=== PATIENT | female | born 1995 | race Caucasian/White ===

== ENCOUNTER → 2021-07-12 15:35 | Outpatient (CLI) | payer BC, SELFPAY ==
[2021-07-12 17:03] LABS: hCG Titer Quant., Serum 1026 mIU/mL (1-3)
== END ==
PROVIDERS: Referring Provider Obstetrics & Gynecology; Visit Provider Obstetrics & Gynecology
DX: N91.2 Amenorrhea, unspecified (principal)
CPT/HCPCS: 36415; 84702

== ENCOUNTER → 2021-07-14 09:36 | Outpatient (CLI) | payer BC, SELFPAY ==
[2021-07-14 10:25] LABS: hCG Titer Quant., Serum 2080 mIU/mL (1-3)
== END ==
PROVIDERS: Referring Provider Obstetrics & Gynecology; Visit Provider Obstetrics & Gynecology
DX: N91.2 Amenorrhea, unspecified (principal)
CPT/HCPCS: 36415; 84702

== ENCOUNTER 2021-08-20 13:56 | Outpatient (CLI) | payer OTHER, SELFPAY ==
[2021-08-20 15:07] LABS: NATERA MAILED SPECIMEN
[2021-08-20 15:35] LABS: Absolute Lymphocyte Count 2.18 X10^3/uL (0.83-4.51); Absolute Neutrophil Count 5.1 X10^3/uL (2.0-7.7); Basophil# 0.02 X10^3/uL; Basophil% 0.3 % (0-1); Eosinophil# 0.07 X10^3/uL; Eosinophils% 0.9 % (0-5); Hematocrit 35.5 % (37-47); Hemoglobin 11.7 g/dL (12.0-15.0); Lymphocyte # 2.18 X10^3/ul (0.83-4.51); Mean Corpuscular Hgb 27.1 pg (27.0-32.0); Mean Corpuscular Volume 82.2 fL (81-99); Mean Platelet Vol. 11.8 fl (6.2-12.0); Monocyte# 0.42 X10^3/uL; Monocyte% 5.4 % (0-10); NRBC Flagged by Analyzer 0 % (0-5); Neutrophil # 5.06 X10^3/uL (2.7-7.7); Platelet Count 201 K/mm3 (150-450); RBC Distribution Width CV 12.5 % (11.6-14.6); RBC Distribution Width SD 37.5 fl (35.1-43.9); Red Blood Count 4.32 M/mm3 (4.2-5.4); White Blood Count 7.8 K/mm3 (4.4-11.0)
[2021-08-20 17:43] LABS: Amphetamine Urine VISTA NEGATIVE (<1000 ng/mL); Barbiturate Urine VISTA NEGATIVE (< 200 ng/mL); Benzodiazepine Urine VISTA NEGATIVE (< 200 ng/mL); Cocaine Urine VISTA NEGATIVE (< 300 ng/mL); Ecstacy Urine VISTA NEGATIVE (< 500 ng/mL); Methadone Urine VISTA NEGATIVE (< 300 ng/mL); PCP Urine VISTA NEGATIVE (< 25 ng/mL); THC Urine VISTA NEGATIVE (< 50 ng/mL); Vista UDS pH Range 5
[2021-08-23 09:29] LABS: HIV - WCH Non-Reactive (Nonreactive); Hepatitis B Surface Antigen Non-Reactive (Nonreactive); Hepatitis C Antibody Non-Reactive (Nonreactive); Rubella IgG Reactive (Nonreactive); Syphilis Antibodies Non-reactive
[2021-08-23 15:07] LABS: Chlamydia By Nucleic Acid AMP Negative (Negative)
[2021-08-23 16:08] LABS: Gonococcus By Nucleic Acid AMP Negative (Negative)
[2021-08-25 12:47] LABS: HPV Reflexed? NOT INDICATED
== END 2021-08-20 23:59 | disposition short-term general hospital (02) ==
PROVIDERS: Referring Provider Obstetrics & Gynecology; Visit Provider Obstetrics & Gynecology
DX: Z34.90 Encounter for supervision of normal pregnancy, unspecified, unspecified trimester (principal); Z12.4 Encounter for screening for malignant neoplasm of cervix
CPT/HCPCS: 36415; 80307; 85025; 86703; 86762; 86780; 86803; 86850; 86900; 86901; 87086; 87088; 87340; 87491; 87591; 88175; G0145

== ENCOUNTER 2021-09-09 12:05 | Outpatient (CLI) | payer OTHER, SELFPAY ==
[2021-09-09 12:12] VITALS: BP 127/72; PULSE 80; RESP 16; TEMP 35.8; O2SAT 100
[2021-09-09] MEDS: 0.9% NaCl Peripheral Flush Adult/Peds IV (12:14)
[2021-09-09] MEDS: Dextrose 5%-Lactated Ringers 1,000 ML 999 ML IV (12:27)
[2021-09-09] MEDS: Ondansetron 4 MG/2 ML Vial IV (12:27)
[2021-09-09 13:39] VITALS: BP 122/66; PULSE 75; RESP 16; TEMP 35.8; O2SAT 100
== END 2021-09-09 23:59 | disposition short-term general hospital (02) ==
LOC: MEDOUTP 12:07
PROVIDERS: Visit Provider Obstetrics & Gynecology
DX: E86.0 Dehydration (principal)
CPT/HCPCS: 96374; 96361; A4216; J2405

== ENCOUNTER → 2021-12-28 | Outpatient (CLI) | payer OTHER, SELFPAY ==
[2021-12-28 13:22] LABS: Absolute Lymphocyte Count 1.76 X10^3/uL (0.83-4.51); Absolute Neutrophil Count 5.1 X10^3/uL (2.0-7.7); Basophil# 0.02 X10^3/uL; Basophil% 0.3 % (0-1); Eosinophils% 1.4 % (0-5); Hematocrit 31.2 % (37-47); Hemoglobin 10.6 g/dL (12.0-15.0); Lymphocyte # 1.76 X10^3/ul (0.83-4.51); Lymphocyte % 23.9 % (19-41); Mean Corpuscular Hgb 29.2 pg (27.0-32.0); Monocyte# 0.31 X10^3/uL; Monocyte% 4.2 % (0-10); NRBC Flagged by Analyzer 0 % (0-5); Neutrophil % 69.1 % (47-70); Platelet Count 191 K/mm3 (150-450); RBC Distribution Width SD 37.8 fl (35.1-43.9); Red Blood Count 3.63 M/mm3 (4.2-5.4); White Blood Count 7.4 K/mm3 (4.4-11.0)
[2021-12-28 13:35] LABS: Glucose Challenge Gest 1H 50g 165 mg/dL (70-140)
== END | disposition home or self-care (01) ==
LOC: PAVLAB 13:05
PROVIDERS: Referring Provider Nurse Practitioner Women's Health; Visit Provider Nurse Practitioner Women's Health
DX: Z34.90 Encounter for supervision of normal pregnancy, unspecified, unspecified trimester (principal); Z3A.22 22 weeks gestation of pregnancy
CPT/HCPCS: 36415; 82950; 85025; 86850; 86900; 86901

== ENCOUNTER → 2022-01-05 | Outpatient (CLI) | payer OTHER, SELFPAY ==
[2022-01-05 08:46] LABS: Glucose GTT-Gestation. Fasting 100 mg/dL (<105)
[2022-01-05 09:46] LABS: Glucose GTT-Gestational 1 Hr 188 mg/dL (<190)
[2022-01-05 11:41] LABS: Glucose GTT-Gestational 2 Hr 121 mg/dL (<165)
[2022-01-05 11:45] LABS: Glucose GTT-Gestational 3 Hr 105 L (<145)
== END | disposition home or self-care (01) ==
PROVIDERS: Referring Provider Nurse Practitioner Women's Health; Visit Provider Nurse Practitioner Women's Health
DX: Z13.1 Encounter for screening for diabetes mellitus (principal)
CPT/HCPCS: 36415; 82951; 82952

== ENCOUNTER 2022-01-18 15:55 | Outpatient (CLI) | payer OTHER, SELFPAY ==
--- NOTE | 2022-01-18 16:05 | US_ITS ---
EXAM: US BIOPHYSICAL PROFILE WITHOUT NON-STRESS TESTING CLINICAL INDICATION: nonreassurring tracing TECHNIQUE: Real-time ultrasound of the maternal pelvis for biophysical profile evaluation with image documentation. This report was created using Add2paper report generation technology. COMPARISON: None. FINDINGS: BREATHING MOVEMENTS: Biophysical profile score is 4/8. No breathing or gross body movements identified during the exam. GROSS BODY MOVEMENTS: See above. TONE: Present. Score 2/2. QUALITATIVE AMNIOTIC FLUID VOLUME: MARCK is 11.5 cm. PRESENTATION: Single fetus identified in cephalic presentation with cardiac rate of 133 bpm. PLACENTA: Posterior placenta is noted with grade 1 maturity change. US/Biophysical Prof W/O Non Stres IMPRESSION: Abnormal biophysical profile score. Follow-up recommended. Electronically Signed: Epi Verdugo MD at 18:23 EDT ,
[2022-01-18 16:14] VITALS: PULSE 78; O2SAT 98
[2022-01-18 17:18] VITALS: BP 127/76; PULSE 67; TEMP 36.6; O2SAT 100
[2022-01-18 17:19] VITALS: BP 127/76; PULSE 67
[2022-01-18 17:21] VITALS: BMI 34.0
[2022-01-18 17:56] LABS: Bedside Glucose 79 mg/dL (74-106)
[2022-01-18] MEDS: Lactated Ringers 1,000 ML 999 ML IV (18:25)
[2022-01-18] MEDS: Betamethasone/Betamethasone 30 MG/5 ML Vial 12 MG IM (18:35)
[2022-01-18] MEDS: Ondansetron 4 MG/2 ML Vial IV (18:35)
[2022-01-18 18:48] LABS: Hematocrit 34.9 % (37-47); Hemoglobin 11.4 g/dL (12.0-15.0); Mean Corp Hgb Conc 32.7 g/dL (32-36); Mean Corpuscular Hgb 28.4 pg (27.0-32.0); Mean Platelet Vol. 11.3 fl (6.2-12.0); Platelet Count 181 K/mm3 (150-450); RBC Distribution Width SD 38.1 fl (35.1-43.9); Red Blood Count 4.01 M/mm3 (4.2-5.4); White Blood Count 9.4 K/mm3 (4.4-11.0)
[2022-01-18 19:23] VITALS: BP 143/69; PULSE 68; TEMP 36.6
[2022-01-18] MEDS: Lactated Ringers 1,000 ML 150 ML IV (19:26)
[2022-01-18 19:47] VITALS: BP 110/77; PULSE 68
[2022-01-18 20:14] LABS: Amphetamine Urine VISTA NEGATIVE (<1000 ng/mL); Barbiturate Urine VISTA NEGATIVE (< 200 ng/mL); Benzodiazepine Urine VISTA NEGATIVE (< 200 ng/mL); Cocaine Urine VISTA NEGATIVE (< 300 ng/mL); Ecstacy Urine VISTA NEGATIVE (< 500 ng/mL); Methadone Urine VISTA NEGATIVE (< 300 ng/mL); PCP Urine VISTA NEGATIVE (< 25 ng/mL); THC Urine VISTA NEGATIVE (< 50 ng/mL); Vista UDS pH Range 6
--- NOTE | 2022-01-18 20:28 | OB.TRI.HP_ITS ---
HPI - General HPI Narrative ABDULLAHI BEAL, is a 27 F who presents due to decreased movement and heart rate variable deceleration on the monitor in the office today. Patient has had a complicated by diet-controlled diabetes and had extended monitoring and a biophysical profile that was 6 out of 10 to offer breathing and to offer gross movements. Patient denies any vaginal bleeding or loss of fluid and admits good movement Maternal Data Information TAMELA Calculator Estimated Delivery Date Method Current WG Current Estimate 03/17/22 LMP (Certain) 31w 5d PFSH [facility] Medical History (Updated 01/18/22 @ 20:[address] Nay Mckinney MD) ASCUS with positive high risk HPV Chronic migraine COVID-19 vaccine series completed Deviated septum HPV test positive Lab test positive for detection of COVID-19 virus Marginal placenta Home Medications multivitamin no.47-iron fum 27 mg-folate no.1 1 mg-dha 300 mg capsule cap PO 07/28/21 [History Last Taken Unknown] blood sugar diagnostic #100 ea 01/05/22 [Rx Last Taken Unknown] blood-glucose meter #1 ea 01/05/22 [Rx Last Taken Unknown] lancets #100 ea 01/05/22 [Rx Last Taken Unknown] breast pump #1 ea 01/12/22 [Rx Last Taken Unknown] famotidine [Pepcid] 20 mg PO DAILY 01/18/22 [History Last Taken Unknown] ondansetron HCl 01/18/22 [History Last Taken Unknown] Allergy/AdvReac Type Severity Reaction Status Date / Time bupropion [From Wellbutrin] Allergy Severe Other Verified 01/18/22 17:23 Family History Father CVA (cerebral vascular accident) Mother Hypertension Ovarian cyst IBS (irritable bowel syndrome) Migraines Grandmother Cancer Lung Surgical History H/O adenoidectomy H/O foot surgery H/O wisdom tooth extraction Social History household members: spouse housing: house current occupational status: employed pets and animals: Yes Smoking Status: Never smoker second hand exposure: No alcohol intake: current alcohol intake frequency: a few times a week caffeine: Yes seatbelt use: always do you feel safe at home: Yes 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 history: - 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) History 1 Elective abortions Hx Para Spontaneous abortions Hx # Term Pregnancies Ectopic pregnancies Hx # Pregnancies Multiple births # of living children Visit Details Expected Delivery Route/Plan Labor Preferences- CB/BF classes: scheduled labor support person: Juan Antonio labor intervention preferences: pain management options preferred: nitrous cut cord/dad catch: yes : yes PP control planned: discussed discussed possible routes of delivery and associated risks: [] special requests: [] Plans Covid status: pos and vaccinated moderna Flu vaccine: discussed Tdap vaccine: [] Rhogam: [] LARC form signed: yes Problem list reviewed and updated with the most current plan of care details and appropriate orders placed. Relevant counseling for the gestational age provided. Continue routine care and follow up unless otherwise noted in visit notes/problem list details OB Flowsheet Initial Weight: 173 lb Date -?-?-?-?-?-?-?-?-?-?-?-?- EGA Weight BP Urine Prot -?-?-?-?-?-?-?-?-?-?-?-?- Glucose FHR FuHt Pres Dilation -?-?-?-?-?-?-?-?-?-?-?-?- Effaced St Visit Note 08/20/21 -?-?-?-?-?-?-?-?-?-?-?-?- 10w 1d 173 lb 8 oz (+8 oz) 130/90 128/84 -?-?-?-?-?-?-?-?-?-?-?-?- 150 -?-?-?-?-?-?-?-?-?-?-?-?- SM- CRL 3.9cm co ns with LMP 09/09/21 -?-?-?-?-?-?-?-?-?-?-?-?- 13w 0d 171 lb (-2 lb) 122/90 Negative -?-?-?-?-?-?-?-?-?-?-?-?- Negative 155 -?-?-?-?-?-?-?-?-?-?-?-?- JV- nausea and v omiting has become severe again. she felt better after getting IV fluids in ER last week. sending to infusion suite now and ordering reglan pump through [facility]. 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 encouraged her to speak with the genetic counselor 09/17/21 -?-?-?-?-?-?-?-?-?-?-?-?- 14w 1d 174 lb 6 oz (+1 lb 6 oz) 124/84 Negative -?-?-?-?-?-?-?-?-?-?-?-?- Negative 141 -?-?-?-?-?-?-?-?-?-?-?-?- JV- nausea impro nona and she is feeling much better with the zofran pump. no complaints. 10/15/21 -?-?-?-?-?-?-?-?-?-?-?-?- 18w 1d 180 lb (+7 lb) 122/88 Negative -?-?-?-?-?-?-?-?-?-?-?-?- Negative 145 -?-?-?-?-?-?-?-?-?-?-?-?- JV- no lof, vagi nal bleeding, or cramping. JV- no lof, vaginal bleeding , or cramping. pt wants to stop the reglan pump. will need to send message to opt nurses. 11/12/21 -?-?-?-?-?-?-?-?-?-?-?-?- 22w 1d 181 lb (+8 lb) 102/80 -?-?-?-?-?-?-?-?-?-?-?-?- 150 -?-?-?-?-?-?-?-?-?-?-?-?- SM- no vb lof go od fm no regular ctx 12/08/21 -?-?-?-?-?-?-?-?-?-?-?-?- 25w 6d 187 lb 4 oz (+14 lb 4 oz) 124/80 Trace -?-?-?-?-?-?-?-?-?-?-?-?- Negative 146 -?-?-?-?-?-?-?-?-?-?-?-?- MH-No VB, LOF. G ood Fm. Denies concerns 12/28/21 -?-?-?-?-?-?-?-?-?-?-?-?- 28w 5d 195 lb (+22 lb) 118/62 Negative -?-?-?-?-?-?-?-?-?-?-?-?- Negative 145 29 -?-?-?-?-?-?-?-?-?-?-?-?- SM- no vb lof go od fm no regualr ctx 01/12/22 -?-?-?-?-?-?-?-?-?-?-?-?- 30w 6d 194 lb (+21 lb) 111/77 Negative -?-?--?-?-?-?-?-?-?-?-?-?- Negative 150 32 Breech -?-?-?-?-?-?-?-?-?-?-?-?- JV-no lof, vagin al bleeding, or dec fm. seeing dr. zabala soon and talking with college sports coach. so far glucose levels are normal. breast pump rx given. need most recent ultrasound from [facility] 01/18/22 -?-?-?-?-?-?-?-?-?-?-?-?- 31w 5d 193 lb 2 oz (+20 lb 2 oz) 112/80 Negative -?-?-?-?-?-?-?-?-?-?-?-?- Negative -?-?-?-?-?-?-?-?-?-?-?-?- SM- co dec fm, n ow feeling some but patient had a decel on the monitor so sent for extended monitoring and BPP 01/18/22 -?-?-?-?-?-?-?-?-?-?-?-?- 31w 5d 192 lb 0.362 oz (+19 lb 0.362 oz) 127/76 127/76 143/69 110/77 -?-?-?-?-?-?-?-?-?-?-?-?- -?-?-?-?-?-?-?-?-?-?-?-?- ROS Constitutional Constitutional: Reports systems reviewed and no addt'l complaints, except as documented and as per HPI ENT HEENT: Reports systems reviewed and no addt'l complaints, except as documented Cardiovascular Cardiovascular: Reports systems reviewed and no addt'l complaints, except as documented Respiratory/Chest Respiratory/Chest: Reports systems reviewed and no addt'l complaints, except as documented Gastrointestinal Gastrointestinal: Reports as per HPI Genitourinary Genitourinary: Reports as per HPI Musculoskeletal Musculoskeletal: Reports systems reviewed and no addt'l complaints, except as documented Integumentary Integumentary: Reports systems reviewed and no addt'l complaints, except as documented Neurologic Neurologic: Reports systems reviewed and no addt'l complaints, except as documented Physical Exam Const alert, oriented x3 and no apparent distress HEENT Head and Scalp: normocephalic and atraumatic Neck full ROM and no lymphadenopathy Chest inspection of chest normal Resp normal respiratory effort GI GI Narrative: gravid, abdomen nontender, AGA Manual OB Exam: dilated, effaced and station NST FHR Rate Baby A Baseline: 140 Variability:: Moderate Accelerations:: 15 x 15 Decelerations:: None NST Reactive:: Yes FHR Category:: Category I Uterine Activity:: Irregular Assessment & Plan (1) Variable heart rate decelerations, antepartum: COMMENT: to l and d for bpp and extended monitoring (2) Gestational diabetes: COMMENT: Carb controlled diet with sliding scale insulin while in hospital status post Celestone (3) Anemia affecting in third trimester: COMMENT: PNV + Iron, add OTC iron daily (4) Prematurity of fetus: COMMENT: Celestone given 01/18 and plan to be given on 01/19 (5) Depression: COMMENT: not currently on medication, encouraged counseling (6) PTSD (post-traumatic stress disorder): COMMENT: family trauma (7) Supervision of normal : COMMENT: PRR girl Aida TAMELA: 03/17/22 Spouse: Juan Antonio (8) : QUALIFIERS: Weeks of gestation: 30 weeks Qualified Code(s): Z3A.30 - 30 weeks gestation of COMMENT: anatomy nl, declined carrier ordered afp. NIPT low risk, 1 hr gct 165, 3 Hr gtt ordered (9) Lab test positive for detection of COVID-19 virus: COMMENT: 81mg asa and 32 & 36 wk US (10) Rh negative status during : COMMENT: Rhogam at 28 weeks, delivery and prn (11) Abnormal ultrasound: COMMENT: 01/14 BPP equivocal, plan STO and give BMZ, repeat BPP in am. PLAN: see PL details Charges/Coding Multi Select Codes Visit Charges Office Visit/Consults: 76959 OV L3 Est Urinary/Genital Urinary/Genital CPT Codes: 32316-58 non-stress test Interp
[2022-01-18 22:51] LABS: Bedside Glucose 168 mg/dL (74-106)
[2022-01-18] MEDS: Insulin Lispro 100 UNIT/ML INSULN.PEN SC (22:57)
[2022-01-18 23:01] VITALS: BP 112/68; PULSE 80; PULSE 85; TEMP 36.2; O2SAT 96
[2022-01-19] MEDS: Lactated Ringers 1,000 ML 150 ML IV ×2 (01:18→07:25)
[2022-01-19 01:19] VITALS: BP 116/57; PULSE 80; TEMP 36.4; O2SAT 97
[2022-01-19] MEDS: Ondansetron 4 MG/2 ML Vial IV (04:35)
[2022-01-19 05:51] VITALS: PULSE 67; O2SAT 98
[2022-01-19 05:54] VITALS: BP 116/72; PULSE 64; TEMP 36.4
[2022-01-19 06:01] LABS: Bedside Glucose 112 mg/dL (74-106)
--- NOTE | 2022-01-19 07:16 | OB.TRI.HP_ITS ---
HPI - General HPI Narrative ABDULLAHI BEAL, is a 27 F who presents with heart rate variable and dec movement, now overnight no signifciant decels cat I tracing good movement no vb or lof no regular ctx just irritability Maternal Data Information TAMELA Calculator Estimated Delivery Date Method Current WG Current Estimate 03/17/22 LMP (Certain) 31w 6d PFSH PFSH Medical History (Updated 01/19/22 @ 07:[address] Nay Mckinney MD) ASCUS with positive high risk HPV Chronic migraine COVID-19 vaccine series completed Deviated septum HPV test positive Lab test positive for detection of COVID-19 virus Marginal placenta Home Medications multivitamin no.47-iron fum 27 mg-folate no.1 1 mg-dha 300 mg capsule (PNV-DHA) cap PO 07/28/21 [History Last Taken Unknown] blood sugar diagnostic ([employer] Test) #100 ea 01/05/22 [Rx Last Taken Unknown] blood-glucose meter ([employer] Blood Glucose System) #1 ea 01/05/22 [Rx Last Taken Unknown] lancets #100 ea 01/05/22 [Rx Last Taken Unknown] breast pump #1 ea 01/12/22 [Rx Last Taken Unknown] famotidine 20 mg tablet (Pepcid) 20 mg PO DAILY [place] 01/18/22 [History Last Taken Unknown] ondansetron HCl 4 mg tablet nausea 01/18/22 [History Last Taken Unknown] Allergy/AdvReac Type Severity Reaction Status Date / Time bupropion [From Wellbutrin] Allergy Severe Other Verified 01/18/22 17:23 Family History Father CVA (cerebral vascular accident) Mother Hypertension Ovarian cyst IBS (irritable bowel syndrome) Migraines Grandmother Cancer Lung Surgical History H/O adenoidectomy H/O foot surgery H/O wisdom tooth extraction Social History household members: spouse housing: house current occupational status: employed pets and animals: Yes Smoking Status: Never smoker second hand exposure: No alcohol intake: current alcohol intake frequency: a few times a week caffeine: Yes seatbelt use: always do you feel safe at home: Yes 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) History 1 Elective abortions Hx Para Spontaneous abortions Hx # Term Pregnancies Ectopic pregnancies Hx # Pregnancies Multiple births # of living children Visit Details Expected Delivery Route/Plan Labor Preferences- CB/BF classes: scheduled labor support person: Juan Antonio labor intervention preferences: pain management options preferred: nitrous cut cord/dad catch: yes : yes PP control planned: discussed discussed possible routes of delivery and associated risks: [] special requests: [] Plans Covid status: pos and vaccinated moderna Flu vaccine: discussed Tdap vaccine: [] Rhogam: [] LARC form signed: yes Problem list reviewed and updated with the most current plan of care details and appropriate orders placed. Relevant counseling for the gestational age provided. Continue routine care and follow up unless otherwise noted in visit notes/problem list details OB Flowsheet Initial Weight: 173 lb Date -?-?-?-?-?-?-?-?--?-?-?-?- EGA Weight BP Urine Prot -?-?-?-?-?-?-?-?-?-?-?-?- Glucose FHR FuHt Pres Dilation -?-?-?-?-?-?-?-?-?-?-?-?- Effaced St Visit Note 08/20/21 -?-?-?-?-?-?-?-?-?-?-?-?- 10w 1d 173 lb 8 oz (+8 oz) 130/90 128/84 -?-?-?-?-?-?-?-?-?-?-?-?- 150 -?-?-?-?-?-?-?-?-?-?-?-?- SM- CRL 3.9cm co ns with LMP 09/09/21 -?-?-?-?-?-?-?-?-?-?-?-?- 13w 0d 171 lb (-2 lb) 122/90 Negative -?-?-?-?-?-?-?-?-?-?-?-?- Negative 155 -?-?-?-?-?-?-?-?-?-?-?-?- JV- nausea and v omiting has become severe again. she felt better after getting IV fluids in ER last week. sending to infusion suite now and ordering reglan pump through [facility]. 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 encouraged her to speak with the genetic counselor 09/17/21 -?-?-?-?-?-?-?-?-?-?-?-?- 14w 1d 174 lb 6 oz (+1 lb 6 oz) 124/84 Negative -?-?-?-?-?-?-?-?-?-?-?-?- Negative 141 -?-?-?-?-?-?-?-?-?-?-?-?- JV- nausea impro nona and she is feeling much better with the zofran pump. no complaints. 10/15/21 -?-?-?-?-?-?-?-?-?-?-?-?- 18w 1d 180 lb (+7 lb) 122/88 Negative -?-?-?-?-?-?-?-?-?-?-?-?- Negative 145 -?-?-?-?-?-?-?-?-?-?-?-?- JV- no lof, vagi nal bleeding, or cramping. JV- no lof, vaginal bleeding , or cramping. pt wants to stop the reglan pump. will need to send message to [facility] nurses. 11/12/21 -?-?-?-?-?-?-?-?-?-?-?-?- 22w 1d 181 lb (+8 lb) 102/80 -?-?-?-?-?-?-?-?-?-?-?-?- 150 -?-?-?-?-?-?-?-?-?-?-?-?- SM- no vb lof go od fm no regular ctx 12/08/21 -?-?-?-?-?-?-?-?-?-?-?-?- 25w 6d 187 lb 4 oz (+14 lb 4 oz) 124/80 Trace -?-?-?-?-?-?-?-?-?-?-?-?- Negative 146 -?-?-?-?-?-?-?-?-?-?-?-?- MH-No VB, LOF. G ood Fm. Denies concerns 12/28/21 -?-?-?-?-?-?-?-?-?-?-?-?- 28w 5d 195 lb (+22 lb) 118/62 Negative -?-?-?-?-?-?-?-?-?-?-?-?- Negative 145 29 -?-?-?-?-?-?-?-?-?-?-?-?- SM- no vb lof go od fm no regualr ctx 01/12/22 -?-?-?-?-?-?-?-?-?-?-?-?- 30w 6d 194 lb (+21 lb) 111/77 Negative -?-?-?-?-?-?-?-?-?-?-?-?- Negative 150 32 Breech -?-?-?-?-?-?-?-?-?-?-?-?- JV-no lof, vagin al bleeding, or dec fm. seeing dr. 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 so far glucose levels are normal. breast pump rx given. need most recent ultrasound from [facility] 01/18/22 -?-?-?-?-?-?-?-?-?-?-?-?- 31w 5d 193 lb 2 oz (+20 lb 2 oz) 112/80 Negative -?-?-?-?-?-?-?-?-?-?-?-?- Negative -?-?-?-?-?-?-?-?-?-?-?-?- SM- co dec fm, n ow feeling some but patient had a decel on the monitor so sent for extended monitoring and BPP 01/18/22 -?-?-?-?-?-?-?-?-?-?-?-?- 31w 5d 192 lb 0.362 oz (+19 lb 0.362 oz) 127/76 127/76 143/69 110/77 112/68 116/57 116/72 -?-?-?-?-?-?-?-?-?-?-?-?- -?-?-?-?-?-?-?-?-?-?-?-?- ROS Constitutional Constitutional: Reports systems reviewed and no addt'l complaints, except as documented and as per HPI ENT HEENT: Reports systems reviewed and no addt'l complaints, except as documented Cardiovascular Cardiovascular: Reports systems reviewed and no addt'l complaints, except as documented Respiratory/Chest Respiratory/Chest: Reports systems reviewed and no addt'l complaints, except as documented Gastrointestinal Gastrointestinal: Reports as per HPI Genitourinary Genitourinary: Reports as per HPI Musculoskeletal Musculoskeletal: Reports systems reviewed and no addt'l complaints, except as documented Integumentary Integumentary: Reports systems reviewed and no addt'l complaints, except as documented Neurologic Neurologic: Reports systems reviewed and no addt'l complaints, except as documented Physical Exam Const alert, oriented x3 and no apparent distress Neck full ROM and no lymphadenopathy Chest inspection of chest normal Resp normal respiratory effort GI GI Narrative: gravid, abdomen nontender, AGA Manual OB Exam: dilated, effaced and station Assessment & Plan (1) Variable heart rate decelerations, antepartum: COMMENT: to l and d for bpp and extended monitoring (2) Gestational diabetes: COMMENT: Carb controlled diet with sliding scale insulin while in hospital status post Celestone (3) Anemia affecting in third trimester: COMMENT: PNV + Iron, add OTC iron daily (4) Prematurity of fetus: COMMENT: Celestone given 01/18 and plan to be given on 01/19 (5) Depression: COMMENT: not currently on medication, encouraged counseling (6) PTSD (post-traumatic stress disorder): COMMENT: family trauma (7) Supervision of normal : COMMENT: PRR girl Aida TAMELA: 03/17/22 Spouse: Juan Antonio (8) : QUALIFIERS: Weeks of gestation: 30 weeks Qualified Code(s): Z3A.30 - 30 weeks gestation of COMMENT: anatomy nl, declined carrier ordered afp. NIPT low risk, 1 hr gct 165, 3 Hr gtt ordered (9) Lab test positive for detection of COVID-19 virus: COMMENT: 81mg asa and 32 & 36 wk US (10) Rh negative status during : COMMENT: Rhogam at 28 weeks, delivery and prn (11) Abnormal ultrasound: COMMENT: 01/14 BPP equivocal, plan STO and give BMZ, repeat BPP today PLAN: Plan see PL details
[2022-01-19 07:28] VITALS: BP 123/89; PULSE 75; O2SAT 99
[2022-01-19 07:29] VITALS: TEMP 36.7
--- NOTE | 2022-01-19 08:00 | US_ITS ---
STUDY: OBSTETRICAL ULTRASOUND - BIOPHYSICAL PROFILE REASON FOR EXAM: Female, 27 years old repeat BPP LMP: 06/10/2021. PRIOR ULTRASOUND: Comparison is made with prior study dated 01/18/2022. TECHNIQUE: Transabdominal TECHNICAL QUALITY: Adequate. FINDINGS: There is a single intrauterine fetus. The fetus is in a breech presentation. There is demonstrated cardiac activity with a heart rate of 135 bpm. There is a normal amniotic fluid volume. The largest amniotic fluid pocket measures 5.3 cm. The amniotic fluid index (MARCK) is 12.8 cm. The placenta is posterior in location and is not low lying. There are Grade 1 placental changes. Age by LMP: 31 weeks, 6 days. TAMELA by LMP: 03/17/2022. BIOPHYSICAL PROFILE: Breathing Movements (FBM): 2 Gross Body Movements (GBM): 2 Tone (FT): 2 Amniotic Fluid Volume (AFV): 2 TOTAL SCORE: 8 / 8 US/Biophysical Prof W/O Non Stres IMPRESSION: Normal biophysical profile of 03/14. Electronically Signed: Marquis Warren MD at 9:47 EDT ,
[2022-01-19] MEDS: Acetaminophen 500 MG Tablet 1000 MG PO (10:43)
--- NOTE | 2022-01-19 12:45 | PCM.PN.OB ---
Subjective Subjective pt is comfortable in bed, no complaints. + fm, no lof ,or vaginal bleeding. Her repeat BPP today was 8/8 and NST's/continuous monitoring looks reassuring. Objective Data Objective Data Vital Signs: Vital Signs Temp Pulse BP Pulse Ox 98.1 F 75 123/89 H 99 01/19/22 07:29 01/19/22 07:28 01/19/22 07:28 01/19/22 07:28 Weight: 192 lb 0.362 oz Body Mass Index (BMI) 34.0 Intake & Output: Intake and Output for Last 24 Hours 01/17/22 01/18/22 01/19/22 23:59 23:59 23:59 Intake Total 1000 / 1000 2295.0 / 2295.0 Balance 1000 / 1000 2295.0 / 2295.0 Lab / Micro Data Result Diagrams: 01/18/22 18:25 Labs: Laboratory Results - last 24 hr 01/18/22 17:52: POC Glucose 79 01/18/22 18:25: WBC 9.4, RBC 4.01 L, Hgb 11.4 L, Hct 34.9 L, MCV 87.0, MCH 28.4, MCHC 32.7, RDW Std Deviation 38.1, RDW Coeff of Awa 12.0, Plt Count 181, MPV 11.3 01/18/22 18:25: Blood Type A NEGATIVE, Antibody Screen TNP 01/18/22 18:25: Antibody Screen NEGATIVE 01/18/22 19:30: Urine Opiates Screen NEGATIVE, Urine Methadone Screen NEGATIVE, Ur Barbiturates Screen NEGATIVE, Ur Phencyclidine Scrn NEGATIVE, Ur Amphetamines Screen NEGATIVE, MDMA (Ecstasy) Screen NEGATIVE, U Benzodiazepines Scrn NEGATIVE, Urine Cocaine Screen NEGATIVE, U Cannabinoids Screen NEGATIVE, Ur Drug Screen Comment 01/18/22 22:45: POC Glucose 168 H 01/19/22 05:52: POC Glucose 112 H Radiography Diagnostic Testing: Radiology Impression Biophysical Profile Ultrasound 01/18/22 16:05 IMPRESSION: Abnormal biophysical profile score. Follow-up recommended. Electronically Signed: Epi Verdugo MD at 18:23 EDT , Biophysical Profile Ultrasound 01/19/22 08:00 IMPRESSION: Normal biophysical profile of 03/14. Electronically Signed: Marquis Warren MD at 9:47 EDT , ROS Constitutional Constitutional: Denies change in weight, chills, fatigue, fever(s), headache(s), poor appetite or weakness Cardiovascular Cardiovascular: Denies chest pain, dizziness, leg edema, palpitations or rapid heart rate Respiratory/Chest Respiratory/Chest: Denies chest tightness, cough, dyspnea or breast pain Gastrointestinal Gastrointestinal: Denies abdominal pain, constipation, cramping, diarrhea or vomiting Genitourinary Genitourinary: Denies dysuria Musculoskeletal Musculoskeletal: Denies back pain Physical Exam HEENT normocephalic Resp normal respiratory effort and normal air movement no CVA tenderness Extremity normal to inspection General Extremity: edema bilateral (trace ) NST FHR Rate Baby A Baseline: 130 Variability:: Moderate Accelerations:: 15 x 15 Decelerations:: None NST Reactive:: Yes FHR Category:: Category I Assessment & Plan (1) Abnormal ultrasound: COMMENT: 01/14 BPP equivocal, plan STO and give BMZ, repeat BPP today PLAN: patient meets discharge criteria. plan to give lunch and 2nd dose of celestone a few hours early so that she may be discharged to home by 1 pm. (2) Prematurity of fetus: COMMENT: Celestone given 01/18 and plan to be given on 01/19 (3) Variable heart rate decelerations, antepartum: COMMENT: to l and d for bpp and extended monitoring (4) Gestational diabetes: COMMENT: Carb controlled diet with sliding scale insulin while in hospital status post Celestone (5) Anemia affecting in third trimester: COMMENT: PNV + Iron, add OTC iron daily (6) Rh negative status during : COMMENT: Rhogam at 28 weeks, delivery and prn (7) Lab test positive for detection of COVID-19 virus: COMMENT: 81mg asa and 32 & 36 wk US (8) : QUALIFIERS: Weeks of gestation: 30 weeks Qualified Code(s): Z3A.30 - 30 weeks gestation of COMMENT: anatomy nl, declined carrier ordered afp. NIPT low risk, 1 hr gct 165, 3 Hr gtt ordered (9) Supervision of normal : COMMENT: PRR girl Aida TAMELA: 03/17/22 Spouse: Juan Antonio (10) PTSD (post-traumatic stress disorder): COMMENT: family trauma (11) Depression: COMMENT: not currently on medication, encouraged counseling (12) Chronic migraine: Charges/Coding Multi Select Codes Visit Charges Observation E&M Codin Subsequent observation care L3
[2022-01-19] MEDS: Betamethasone/Betamethasone 30 MG/5 ML Vial 12 MG IM (13:23)
[2022-01-19 13:51] VITALS: BP 126/78; PULSE 82; TEMP 37.2
== END 2022-01-19 13:55 | disposition home or self-care (01) ==
LOC: WPOUT 16:02 → WP 16:03
PROVIDERS: Referring Provider Obstetrics & Gynecology; Visit Provider Obstetrics & Gynecology
DX: O76 Abnormality in fetal heart rate and rhythm complicating labor and delivery (principal); Z3A.31 31 weeks gestation of pregnancy; O99.343 Other mental disorders complicating pregnancy, third trimester; F43.10 Post-traumatic stress disorder, unspecified; F32.A Depression, unspecified; O24.410 Gestational diabetes mellitus in pregnancy, diet controlled; Z87.42 Personal history of other diseases of the female genital tract; Z79.899 Other long term (current) drug therapy
CPT/HCPCS: 96374; 96376; 96361 ×2; 59025; 59050; 76819; 80307; 82962; 85027; 86850; 86900; 86901; 96372; 99218; J7120; G0378; J0702; J2405

== ENCOUNTER 2022-01-26 11:00 | Outpatient (RCR) | payer OTHER, SELFPAY | END 2022-02-03 23:59 | LOC: DC 11:00 | PROVIDERS: Referring Provider Nurse Practitioner Women's Health; Visit Provider Nurse Practitioner Women's Health | DX: O24.419 Gestational diabetes mellitus in pregnancy, unspecified control (principal); Z3A.00 Weeks of gestation of pregnancy not specified | CPT/HCPCS: 97802; 97803 ==

== ENCOUNTER → 2022-01-27 | Outpatient (CLI) | payer OTHER, SELFPAY ==
--- NOTE | 2022-01-27 08:50 | US_ITS ---
STUDY: SECOND AND THIRD TRIMESTER OBSTETRICAL ULTRASOUND - LIMITED REASON FOR EXAM: Female, 27 years old. growth -- 32 weeks PRIOR ULTRASOUND: Jan 19 2022 8:45am . TECHNIQUE: Transabdominal TECHNICAL QUALITY: Adequate. FINDINGS: There is a single intrauterine fetus. The fetus is in a cephalic presentation. There is demonstrated cardiac activity with a heart rate of 150 bpm. There is a normal amniotic fluid volume. The largest amniotic fluid pocket measures 4.7 cm. The amniotic fluid index (MARCK) is 12.2 cm. The placenta is posterior in location and is not low lying. There are Grade 1 placental changes. The cervix measures cm in length: 3.4. BIOMETRY: BPD: 83 mm: 33 weeks, 4 days HC: 300 mm: 33 weeks, 1 days AC: 290 mm: 33 weeks, 0 days FL: 64 mm: 32 weeks, 6 days CI: 80 FL/AC: 22 FL/BPD: 76 HC/AC: 1.03 age by current US: 33 weeks, 0 days. TAMELA by current US: 8.11.22. Estimated weight: 2139 grams, +/- 321 grams, 47 %. Age by LMP: 33 weeks, 0 days. TAMELA by LMP: 8.11.22. US/OB Limited With Biometrics IMPRESSION: There is a single live intrauterine with a heart rate of 150 bpm. age by current US: 33 weeks, 0 days. TAMELA by current US: 8.11.22. Estimated weight: 2139 grams, +/- 321 grams, 47 %. Electronically Signed: Klever Ervin MD at 16:07 EDT ,
== END | disposition home or self-care (01) ==
PROVIDERS: Visit Provider Obstetrics & Gynecology
DX: O98.513 Other viral diseases complicating pregnancy, third trimester (principal); U07.1 COVID-19; Z3A.32 32 weeks gestation of pregnancy
CPT/HCPCS: 76816

== ENCOUNTER → 2022-02-24 | Outpatient (CLI) | payer OTHER, SELFPAY | END | disposition home or self-care (01) | LOC: LABSPEC 09:40 | PROVIDERS: Visit Provider Obstetrics & Gynecology | DX: Z34.83 Encounter for supervision of other normal pregnancy, third trimester (principal); Z3A.36 36 weeks gestation of pregnancy | CPT/HCPCS: 87081 ==

== ENCOUNTER → 2022-02-24 | Outpatient (CLI) | payer OTHER, SELFPAY ==
--- NOTE | 2022-02-24 08:53 | US_ITS ---
STUDY: SECOND AND THIRD TRIMESTER OBSTETRICAL ULTRASOUND - LIMITED REASON FOR EXAM: Female, 27 years old growth -- 36 weeks LMP: 06/10/2021. PRIOR ULTRASOUND: Comparison is made with prior study dated 01/27/2022. TECHNIQUE: Transabdominal TECHNICAL QUALITY: Adequate. FINDINGS: There is a single intrauterine fetus. The fetus is in a cephalic presentation. There is demonstrated cardiac activity with a heart rate of 130 bpm. There is a normal amniotic fluid volume. The largest amniotic fluid pocket measures 3.7 cm. The amniotic fluid index (MARCK) is 11.1 cm. The placenta is posterior in location and is not low lying. There are Grade 2 placental changes. BIOMETRY: BPD: 9.1 cm: 36 weeks, 4 days HC: 32.5 cm: 36 weeks, 5 days AC: 32.6 cm: 37 weeks, 3 days FL: 6.9 cm: 35 weeks, 3 days Age by LMP: 37 weeks, 0 days. TAMELA by LMP: 03/17/2022. age by prior US: 37 weeks, 0 days. TAMELA by prior US: 03/17/2022. age by current US: 36 weeks, 0 days. TAMELA by current US: 03/24/2022. Estimated weight: 2922 grams, +/- 4:30 grams, 40 percentile. US/OB Limited With Biometrics IMPRESSION: Single live intrauterine gestation with a mean gestational age of 37 weeks. The measurements obtained today following within the normal expected range. Electronically Signed: Marquis Warren MD at 12:19 EDT ,
== END | disposition home or self-care (01) ==
LOC: OPUS 08:52
PROVIDERS: Visit Provider Obstetrics & Gynecology
DX: O98.513 Other viral diseases complicating pregnancy, third trimester (principal); U07.1 COVID-19; Z3A.37 37 weeks gestation of pregnancy
CPT/HCPCS: 76816

== ENCOUNTER 2022-03-05 21:54 | Inpatient (IN) | payer OTHER, SELFPAY ==
[2022-03-05] VITALS (11 sets, daily range): BP systolic 124–143; BP diastolic 82–97; PULSE 70–100; TEMP 37.1–37.4; O2SAT 98; BMI 35.8
[2022-03-05 20:47] LABS: Hematocrit 30.8 % (37-47); Mean Corp Hgb Conc 32.5 g/dL (32-36); Mean Corpuscular Hgb 27.5 pg (27.0-32.0); Mean Corpuscular Volume 84.6 fL (81-99); Mean Platelet Vol. 12.2 fl (6.2-12.0); Platelet Count 172 K/mm3 (150-450); RBC Distribution Width CV 12.9 % (11.6-14.6); RBC Distribution Width SD 39.5 fl (35.1-43.9); Red Blood Count 3.64 M/mm3 (4.2-5.4); White Blood Count 8.2 K/mm3 (4.4-11.0)
[2022-03-05 21:06] LABS: Mucous, Urine 0 SEEN /hpf (<or=2+); Red Blood Cells-Urine 0 SEEN /hpf (0-5)
[2022-03-05 21:07] LABS: ALB/GLOB Ratio 0.6 RATIO (0.9-2.4); AST(SGOT) 11 U/L (15-37); Alanine Aminotransfer ALT/SGPT 9 U/L (13-56); Albumin, Serum 2.3 g/dL (3.2-5.0); Alkaline Phosphatase 127 U/L (45-117); Anion Gap 8 (5-15); BUN 6 mg/dL (7-18); BUN/Creat Ratio 10.1 RATIO (10-20); Calcium,Total 8.1 mg/dL (8.5-10.1); Chloride 108 mmol/L (98-107); EST Glomerular Filtration Rate 130 mL/min (>60); Est Glom Filt Rate - Afr Amer 157 mL/min (>60); Estimated Creatinine Clearance 118.57 ml/min; Globulin 3.6 g/dL (2.2-4.2); Glucose 115 mg/dL (74-106); Potassium 3.3 mmol/L (3.5-5.1); Protein, Total 5.9 g/dL (6.4-8.2); Sodium Level 138 mmol/L (136-145)
[2022-03-05 21:08] LABS: Color, Urine Yellow (Yellow); Glucose, Dipstick Normal (Normal); Ketone-Dipstick Negative (Negative); Leukocyte Esterase-Dipstick 25 /ul (Negative); Nitrite-Dipstick Negative (Negative); Occult Blood-Urine Negative /ul (Negative); Protein-Dipstick Negative (Negative); Specific Gravity, Urine 1.015 (1.002-1.030); Urine Bilirubin Dipstick Negative (Negative); Urine Clarity Sl. Cloudy (Clear); Urine Urobilinogen Normal (Normal)
[2022-03-05 21:18] LABS: Protein:Creat Ratio 159 mg/g CRE (0-200)
[2022-03-05 21:37] LABS: Bacteria 1+ /hpf (None Seen); Squamous Epithelial Cells - UA 5-10 SEEN /hpf (5-10); White Blood Cells 0-5 SEEN /hpf (0-5)
[2022-03-05 22:08] LABS: Absolute Lymphocyte Count 2.44 X10^3/uL (0.83-4.51); Absolute Neutrophil Count 5.4 X10^3/uL (2.0-7.7); Basophil# 0.02 X10^3/uL; Basophil% 0.2 % (0-1); Eosinophil# 0.06 X10^3/uL; Eosinophils% 0.7 % (0-5); Lymphocyte # 2.44 X10^3/ul (0.83-4.51); Lymphocyte % 28.7 % (19-41); Monocyte# 0.49 X10^3/uL; Monocyte% 5.8 % (0-10); NRBC Flagged by Analyzer 0 % (0-5); Neutrophil # 5.41 X10^3/uL (2.7-7.7); Neutrophil % 63.8 % (47-70)
[2022-03-05 22:11] LABS: POSITIVE COUNT NO; POSITIVE DIFFERENTIAL NO; POSITIVE MORPHOLOGY NO
--- NOTE | 2022-03-05 22:15 | HP.PCM.OB_ITS ---
HPI - General General Date of Admission: 03/05/22 HPI Narrative ABDULLAHI BEAL, is a 27y/o @ 38 weeks 2 days who presents to L&D with decreased movement. throughout her triage visit the tracing was a reactive category 1 tracing, however her blood pressures were found to be persistently elevated 130's-140's/high 90's. She denies headaches, visual changes, epigastric pain, edema, vaginal bleeding, and contractions. PIH labs were found to be normal. The diagnosis of PIH was given based on comparisons of blood pressures in the office. She has had diet controlled gestational diabetes during this . Maternal Data Information TAMELA Calculator Estimated Delivery Date Method Current WG Current Estimate 03/17/22 LMP (Certain) 38w 2d PFSH PFS Medical History ASCUS with positive high risk HPV Chronic migraine COVID-19 vaccine series completed Deviated septum HPV test positive Lab test positive for detection of COVID-19 virus Marginal placenta Home Medications multivitamin no.47-iron fum 27 mg-folate no.1 1 mg-dha 300 mg capsule (PNV-DHA) 1 cap PO DAILY 07/28/21 [History Last Taken Unknown] blood sugar diagnostic (Truetrack Test strips) #100 ea 01/05/22 [Rx Last Taken Unknown] blood-glucose meter (Truetrack Blood Glucose System kit) #1 ea 01/05/22 [Rx Last Taken Unknown] lancets #100 ea 01/05/22 [Rx Last Taken Unknown] breast pump #1 ea 01/12/22 [Rx Last Taken Unknown] famotidine 20 mg tablet (Pepcid) 20 mg PO DAILY hearburn #30 tabs 02/23/22 [Rx Last Taken 03/04/22 22:00 1 tab] ondansetron HCl 4 mg tablet 4 mg PO BID-TID PRN nausea 30 days #60 tabs 02/23/22 [Rx Last Taken 03/04/22 22:00 1 tab] cyclobenzaprine 5 mg tablet 5 mg PO TID PRN muscle pain #10 tabs 02/25/22 [Rx Last Taken 02/27/22 20:00 1 tab] Allergy/AdvReac Type Severity Reaction Status Date / Time bupropion [From Wellbutrin] Allergy Severe Other Verified 02/09/22 13:22 Family History Father CVA (cerebral vascular accident) Mother Hypertension Ovarian cyst IBS (irritable bowel syndrome) Migraines Grandmother Cancer Lung Surgical History H/O adenoidectomy H/O foot surgery H/O wisdom tooth extraction Social History household members: spouse housing: house current occupational status: employed pets and animals: Yes Smoking Status: Never smoker second hand exposure: No alcohol intake: current alcohol intake frequency: a few times a week caffeine: Yes seatbelt use: always do you feel safe at home: Yes 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 history: - 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) History 1 Elective abortions Hx Para Spontaneous abortions Hx # Term Pregnancies Ectopic pregnancies Hx # Pregnancies Multiple births # of living children Visit Details Expected Delivery Route/Plan Labor Preferences- CB/BF classes: scheduled labor support person: Juan Antonio labor intervention preferences: pain management options preferred: nitrous cut cord/dad catch: yes : yes PP control planned: discussed discussed possible routes of delivery and associated risks: [] special requests: [] Plans Covid status: pos and vaccinated moderna Flu vaccine: discussed Tdap vaccine: given Rhogam: given LARC form signed: yes Problem list reviewed and updated with the most current plan of care details and appropriate orders placed. Relevant counseling for the gestational age provided. Continue routine care and follow up unless otherwise noted in visit notes/problem list details OB Flowsheet Initial Weight: 173 lb Date -?-?-?-?-?-?-?-?-?-?-?-?- EGA Weight BP Urine Prot -?-?-?-?-?-?-?-?-?-?-?--?- Glucose FHR FuHt Pres Dilation -?-?-?-?-?-?-?-?-?-?-?-?- Effaced St Visit Note 08/20/21 -?-?-?-?-?-?-?-?-?-?-?-?- 10w 1d 173 lb 8 oz (+8 oz) 130/90 128/84 -?-?-?-?-?-?-?-?-?-?-?-?- 150 -?-?-?-?-?-?-?-?-?-?-?-?- SM- CRL 3.9cm co ns with LMP 09/09/21 -?-?--?-?-?-?-?-?-?-?-?-?- 13w 0d 171 lb (-2 lb) 122/90 Negative -?-?-?-?-?-?-?-?-?-?-?-?- Negative 155 -?-?-?-?-?-?-?-?-?-?-?-?- JV- nausea and v omiting has become severe again. she felt better after getting IV fluids in ER last week. sending to infusion suite now and ordering reglan pump through [facility]. 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 encouraged her to speak with the genetic counselor 09/17/21 -?-?-?--?-?-?-?-?-?-?-?-?- 14w 1d 174 lb 6 oz (+1 lb 6 oz) 124/84 Negative -?-?-?-?-?-?-?-?-?-?-?-?- Negative 141 -?-?-?-?-?-?-?-?-?-?-?-?- JV- nausea impro nona and she is feeling much better with the zofran pump. no complaints. 10/15/21 -?-?-?-?-?-?-?-?-?-?-?-?- 18w 1d 180 lb (+7 lb) 122/88 Negative -?-?-?-?-?-?-?-?-?-?-?-?- Negative 145 -?-?-?-?-?-?-?-?-?-?-?-?- JV- no lof, vagi nal bleeding, or cramping. JV- no lof, vaginal bleeding , or cramping. pt wants to stop the reglan pump. will need to send message to [facility] nurses. 11/12/21 -?-?-?-?-?-?-?-?-?-?-?-?- 22w 1d 181 lb (+8 lb) 102/80 -?-?-?-?-?-?-?-?-?-?-?-?- 150 -?-?-?-?-?-?-?-?-?-?-?-?- SM- no vb lof go od fm no regular ctx 12/08/21 -?-?-?-?-?--?-?-?-?-?-?-?- 25w 6d 187 lb 4 oz (+14 lb 4 oz) 124/80 Trace -?-?-?-?-?-?-?-?-?-?-?-?- Negative 146 -?-?-?-?-?-?-?-?-?-?-?-?- -No VB, LOF. G ood Fm. Denies concerns 12/28/21 -?-?-?-?-?-?-?-?-?-?-?-?- 28w 5d 195 lb (+22 lb) 118/62 Negative -?-?-?-?-?-?-?--?-?-?-?-?- Negative 145 29 -?-?-?-?-?-?-?-?-?-?-?-?- SM- no vb lof go od fm no regualr ctx 01/12/22 -?-?-?-?-?-?-?-?-?-?-?-?- 30w 6d 194 lb (+21 lb) 111/77 Negative -?-?-?-?-?-?-?-?-?-?-?-?- Negative 150 32 Breech -?-?-?-?-?-?-?-?-?-?-?-?- JV-no lof, vagin al bleeding, or dec fm. seeing dr. zabala soon and talking with athlete manager. so far glucose levels are normal. breast pump rx given. need most recent ultrasound from [facility] 01/18/22 -?-?-?-?--?-?-?-?-?-?-?-?- 31w 5d 193 lb 2 oz (+20 lb 2 oz) 112/80 Negative -?-?-?-?-?-?-?-?-?-?-?-?- Negative -?-?-?-?-?-?-?-?-?-?-?-?- SM- co dec fm, n ow feeling some but patient had a decel on the monitor so sent for extended monitoring and BPP 01/18/22 -?-?-?-?-?-?-?-?-?-?-?-?- 31w 6d 192 lb 0.362 oz (+19 lb 0.362 oz) 127/76 127/76 143/69 110/77 112/68 116/57 116/72 123/89 126/78 -?-?-?-?-?-?-?-?-?-?-?-?- -?-?-?-?-?-?-?-?-?-?--?-?- 01/26/22 -?-?-?-?-?-?-?-?-?-?-?-?- 32w 6d 189 lb 4 oz (+16 lb 4 oz) 110/84 -?-?-?-?-?-?-?-?-?-?-?-?- 147 -?-?-?-?-?-?-?-?-?-?-?-?- MH-Good FM. NO V B, LOF or CTX. Some hip discomfort/chiropractor. Growth US 32 and 36 wk ordered. 02/03/22 -?-?-?-?-?-?-?-?-?-?-?-?- 34w 0d 193 lb 6 oz (+20 lb 6 oz) 128/78 Negative -?-?-?-?-?-?-?-?-?-?-?-?- Negative 120 -?-?-?-?-?-?-?-?-?-?-?-?- JV- nst only for decreased movement. reactive. pt reassured. 02/09/22 -?-?-?-?-?-?-?-?-?-?-?-?- 34w 6d 198 lb (+25 lb) 110/64 Negative -?-?-?-?-?-?-?-?-?-?-?-?- Negative 137 34 -?-?-?-?-?-?-?-?-?-?-?-?- MH-NO VB, LOF. G ood FM. Has 36wk growth US scheduled. 02/23/22 -?-?-?-?-?-?--?-?-?-?-?-?- 36w 6d 198 lb (+25 lb) Negative -?-?-?-?-?-?-?-?-?-?-?-?- Negative 135 36 Cephalic 0 -?-?-?-?-?-?-?-?-?-?-?-?- JV-GBS collected . bedside ultrasound done to confirm vtx. no complaints today 03/02/22 -?-?-?-?-?-?-?-?-?-?-?-?- 37w 6d 199 lb (+26 lb) 118/76 -?-?-?-?-?-?-?-?-?-?-?-?- 145 36 Cephalic 1 -?-?-?-?-?-?-?-?-?-?-?-?- 70 -3 JV- gbs ne g. pt did not collect her glucose levels this week. importance of doing so discussed to know about timing of delivery. likely will proceed with 40 week delivery as glucose levels up to this point have been diet controlled. NST FHR Rate Baby A Baseline: 140 Variability:: Moderate Accelerations:: 15 x 15 Decelerations:: None NST Reactive:: Yes FHR Category:: Category I ROS Constitutional Constitutional: Denies change in weight, fatigue, fever(s), headache(s), poor appetite or weakness Eyes Eyes: Denies blurry vision, change in vision, seeing flashes or spots in vision ENT HEENT: Denies dizziness, headache(s), loss taste/smell or sore throat Cardiovascular Cardiovascular: Denies chest pain, dizziness, dyspnea, irregular heart rhythm, leg edema, palpitations, rapid heart rate or vomiting Respiratory/Chest Respiratory/Chest: Denies chest tightness, cough, dyspnea or breast pain Gastrointestinal Gastrointestinal: Denies abdominal pain, anorexia, constipation, cramping, diarrhea, hemorrhoids, vomiting or weight changes Genitourinary Genitourinary: Denies dysuria, flank pain, genital lesions, genital pain, urinary frequency or urinary urgency Musculoskeletal Musculoskeletal: Denies back pain, difficulty walking, joint pain, limited range of motion, muscle cramps or numbness Integumentary Integumentary: Denies lesions or unusual bruising Neurologic Neurologic: Denies abnormal movements, abnormal speech, dizziness, numbness, seizure-like activity or syncope Psychiatric Psychiatric: Denies anxiety, behavioral changes, change in appetite, change in libido, cognitive impairment, confusion, depression, difficulty concentrating, hallucinations or suicidal thoughts Endocrine Endocrinology: Denies excessive sweating, polydipsia or polyuria Hematologic/Lymphatic Hematologic/Lymphatic: Denies easy bleeding, easy bruising or lymphadenopathy Allergic/Immunologic Allergic/Immunologic: Denies itchy eyes, lip swelling, seasonal rhinorrhea, rhinitis, throat swelling, tongue swelling, eczemia, wheezing or asthma Vital Signs Vital Signs Vital Signs: 03/05/22 19:33 03/05/22 19:33 03/05/22 19:33 Temperature 98.8 F Pulse Rate 96 Blood Pressure 136/88 H BP Systolic 136 BP Diastolic 88 03/05/22 19:45 03/05/22 19:45 03/05/22 20:30 Temperature Pulse Rate 100 Blood Pressure 143/90 H 126/83 H BP Systolic 143 126 BP Diastolic 90 83 03/05/22 20:30 03/05/22 20:43 03/05/22 20:43 Temperature Pulse Rate 82 99 Blood Pressure 130/92 H BP Systolic 130 BP Diastolic 92 03/05/22 20:58 03/05/22 20:58 03/05/22 21:13 Temperature Pulse Rate 70 Blood Pressure 134/97 H 126/86 H BP Systolic 134 126 BP Diastolic 97 86 03/05/22 21:13 03/05/22 21:29 03/05/22 21:29 Temperature Pulse Rate 86 83 Blood Pressure 132/91 H BP Systolic 132 BP Diastolic 91 03/05/22 21:43 03/05/22 21:43 Temperature Pulse Rate 84 Blood Pressure 124/84 H BP Systolic 124 BP Diastolic 84 Weight Weight: 202 lb 6.15 oz Body Mass Index (BMI) 35.8 Physical Exam Const alert, oriented x3, no apparent distress and healthy appearing General Appearance: cooperative; Negative for anxious HEENT normocephalic Face and Sinus: normal facial exam Eyes EOMs intact bilaterally and no scleral icterus General Eye: normal appearance of both eyes Neck full ROM and supple Lymph Lymphatic: no lymphadenopathy noted Chest Chest: abnormal inspection of the chest Resp normal respiratory effort Effort and Inspection: able to speak in complete sentences Cardio regular rate GI soft to palpation and non-tender Inspection: gravid Palpation: soft; Negative for tender external exam normal Amniotic Fluid: ROM+plus Back/Spine no CVA tenderness Extremity normal to inspection, full ROM and no clubbing, cyanosis or edema General Extremity: Negative for calf tenderness or edema Skin Lesions: no lesions Rashes: no rashes Psych mental status grossly normal Labs Labs Labs: Blood Type A NEGATIVE Antibody Screen NEGATIVE Hct 30.8 % (37-47) L Hgb 10.0 g/dL (12.0-15.0) L Pap Smear Positive Obstetrics US Syphilis Total Ab Non-reactive Rubella IgG Antibody Reactive (Nonreactive) Hep Bs Antigen Non-Reactive (Nonreactive) Chlamydia DNA (JUSTICE) Negative (Negative) Neisseria gonorrhoeae DNA (JUSTICE) Negative (Negative) HIV 1&2 Antibody Non-Reactive (Nonreactive) Glucose 1 Hr 50 gm 165 mg/dL (70-140) H Assessment & Plan (1) Abnormal ultrasound: COMMENT: 01/14 BPP equivocal, plan STO and give BMZ, repeat BPP today (2) Prematurity of fetus: COMMENT: Celestone given 01/18 and plan to be given on 01/19 (3) Variable heart rate decelerations, antepartum: COMMENT: to l and d for bpp and extended monitoring (4) Gestational diabetes: COMMENT: Carb controlled diet with sliding scale insulin while in hospital status post Celestone; stable. Blood sugars fasting 88, highest PPG 117. (5) Anemia affecting in third trimester: COMMENT: PNV + Iron, add OTC iron daily (6) Rh negative status during : COMMENT: Rhogam at 28 weeks, delivery and prn (7) Lab test positive for detection of COVID-19 virus: COMMENT: 81mg asa and 32 & 36 wk US (8) : QUALIFIERS: Weeks of gestation: 37 weeks Qualified Code(s): Z3A.37 - 37 weeks gestation of COMMENT: GBS Negative, anatomy nl, declined carrier ordered afp. NIPT low risk, 1 hr gct 165, 3 Hr gtt ordered, nl growth 32 wks, nl growth 36 wks. (9) Supervision of normal : COMMENT: PRR girl Aida TAMELA: 03/17/22 Spouse: Juan Antonio (10) PTSD (post-traumatic stress disorder): COMMENT: family trauma (11) Depression: COMMENT: not currently on medication, encouraged counseling (12) Chronic migraine: (13) induced hypertension: PLAN: Patient presents IOL, plan management for with cytotec tonight and likely pitocin in the am, arom prn. Pain management: plans epidural. GBS negative. Management of any complications: none [facility] and made any clinically relevant updates.
[2022-03-05] MEDS: 0.9% Saline Lock 10 ML Syringe IV (22:20)
[2022-03-05 22:30] LABS: Bedside Glucose 87 mg/dL (74-106)
[2022-03-05] MEDS: miSOPROStol 25 MCG TABLET VAGINAL (22:41)
[2022-03-05 23:30] LABS: Bedside Glucose 97 mg/dL (74-106)
[2022-03-06] VITALS (50 sets, daily range): BP systolic 106–155; BP diastolic 64–94; PULSE 57–100; RESP 16–18; TEMP 36.1–37.1; O2SAT 66–100
[2022-03-06] MEDS: miSOPROStol 25 MCG TABLET VAGINAL (02:54)
[2022-03-06] MEDS: Acetaminophen 500 MG Tablet PO (03:00)
[2022-03-06 03:21] LABS: Bedside Glucose 94 mg/dL (74-106)
[2022-03-06] MEDS: Lactated Ringers 1,000 ML 50 ML IV (07:03)
[2022-03-06] MEDS: Ondansetron 4 MG/2 ML Vial IV (07:03)
[2022-03-06 07:25] LABS: Bedside Glucose 76 mg/dL (74-106)
[2022-03-06] MEDS: LACTATED RINGERS 500 ML 999 ML IV (07:55)
[2022-03-06] MEDS: Lactated Ringers 1,000 ML 999 ML IV (09:30)
--- NOTE | 2022-03-06 09:48 | PN_ITS ---
Progress Note nurse called for moments of prolonged decelerations. The patient complains of feeling cramping and states that she would not mind a section current tracing: FHT: 150s' Moderate variability reactive moments of prolonged decelerations category II tracing, not associated with contractions [place]: irregular Contractions tristan over 30 minutes showed MARCK of 7, rhythmic breathing x 1, minimal gross body movement (less than 3 in 30 minutes), no flexion/extension, by definition this is a 4/8 bpp A/P: non-reassuring bpp, decels, PIH plan for section now.
[2022-03-06] MEDS: Acetaminophen 500 MG Tablet 1000 MG PO ×3 (09:50→21:19)
[2022-03-06] MEDS: Sodium Citrate/Citric Acid 30 ML UDC PO (09:51)
[2022-03-06] MEDS: Cefazolin 2 GM in 0.9% Normal Saline 100 ML IV (10:00)
--- NOTE | 2022-03-06 10:30 | PLAC_PTH ---
PATIENT: ABDULLAHI BEAL LOC: [facility] U#:[id number] AGE/SX: 27/F ROOM: [facility] RE03/05/[address]: Dr. Amie Martin DO : 1995 BED: 1 DIS: 03/09/2022 SPEC #: [id number] RECD: 03/06/22 14:24 STATUS: JAYCEE ARTURO #: [id number] DUANE: 03/06/22 10:[address]: Amie Martin DEPT: SURGICAL PATHOLOGY RECD BY: Nancy Henriquez Tissues: Placenta, NOS Procedures: Surgery Specimen Level V HEADER OPERATION: Primary section PRE-OP DIAGNOSIS: Induction TISSUE SUBMITTED: Placenta MICROSCOPIC DIAGNOSIS Tong placenta (400 gm): Umbilical cord ? trivascular with no evidence of inflammation. Placental membranes ? mild chronic decidual inflammation. Placental disc ? intravillous and intervillous congestion and minimal chronic decidual inflammation. AM:jeyson 03/09/2022 MICROSCOPIC DESCRIPTION Slides are reviewed. GROSS DESCRIPTION SPECIMEN: PLACENTA / CLINICAL INFORMATION: A. Weight: 2.735 kg B. Gestational Age: 38 weeks C. Sex: Female PLACENTAL WEIGHT (POST FIXATION): 400 gm PLACENTAL DIMENSIONS: 17 x 14 x 3 cm PLACENTAL SHAPE: Usual ovoid PLACENTAL WEIGHT FOR GESTATIONAL AGE: Within 10-99th percentile MEMBRANES - Present A. Insertion: Marginal B. Site of rupture from edge: 8 cm from edge of placental disc C. Color of membrane: Grace-harris D. Abnormalities: None UMBILICAL CORD - Present A. Color: Grace-harris B. Insertion: Marginal C. Length: 39 cm D. Diameter: 1.1 cm E. Number of vessels: Three F. Abnormalities: None PLACENTAL DISC - Present A. Color of surface: Grace-harris B. surface abnormalities: None C. Maternal cotyledons: Intact with minimal tears D. Attached retro placental clot: No clot E. Cut surface: Dark red and spongy F. Lesions: None G. Separate clot: Absent SECTIONS SUBMITTED: 1. Membrane roll 2. Cord, maternal end 3. Cord, end 4. Placental disc, and maternal surfaces 5. Placental disc, and maternal surfaces 6. Placental disc, and maternal surfaces SJ:jeyson 03/08/2022 TC:3 CPT: 58688
--- NOTE | 2022-03-06 10:48 | OP.PCM_ITS ---
Assessment & Plan (1) H/O biophysical profile: COMMENT: bpp 4/8 (2) heart rate decelerations affecting management of mother: COMMENT: prolonged decelerations in labor (3) Supervision of normal : COMMENT: PRR girl Aida TAMELA: 03/17/22 Spouse: Juan Antonio (4) : QUALIFIERS: Weeks of gestation: 37 weeks Qualified Code(s): Z3A.37 - 37 weeks gestation of COMMENT: GBS Negative, anatomy nl, declined carrier ordered afp. NIPT low risk, 1 hr gct 165, 3 Hr gtt ordered, nl growth 32 wks, nl growth 36 wks. (5) Rh negative status during : COMMENT: Rhogam at 28 weeks, delivery and prn (6) Anemia affecting in third trimester: COMMENT: PNV + Iron, add OTC iron daily (7) Gestational diabetes: COMMENT: Carb controlled diet with sliding scale insulin while in hospital status post Celestone; stable. Blood sugars fasting 88, highest PPG 117. 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: Maternal Data Information TAMELA Calculator Estimated Delivery Date Method Current WG Current Estimate 03/17/22 LMP (Certain) 38w 3d Final TAMELA: 03/17/22 Final TAMELA Source: US <20 weeks Gestational age: 38 weeks 3 days Details Operative Information Date of Procedure: 03/06/22 Pre-Operative Diagnosis: @38 weeks 3 days, decreased movement, decelerations, bpp 4/8 Post-Operative Diagnosis: @ 38 weeks 3 days, decreased movement, decelerations, bpp 4/8, arcuate uterus, fundal placenta Classification: ROGE Procedure Type: low transverse shake packer #1: Yazmin Wyatt Type of Anesthesia: Spinal Anesthesiologist: DeHorta,Chandra Antibiotic Given: Ancef 2 grams IV x1 Drain: Joya to straight drain Estimated Blood Loss: 300cc Findings Description of Procedure: Reason for surgery: The patient presented to labor and delivery on 03/05 for decreased movement and was found to have a reassuring tracing, however blood pressures were elevated. The decision was made to induce labor with Cytotec. Over the night the tracing showed 3 separate episodes of prolonged decelerations that returned to category 1 tracing with position change. By 8:00 am the decelerations were becoming more frequent however still with return to category tracing. A biophysical profile was performed and after 30 minutes gave a score of 4/8. The decision was made to proceed with urgent section. Spinal anesthesia was placed without difficulty. Joya catheter was placed. The patient was placed in the dorsal supine position with leftward tilt. Patient was prepped and draped in the normal sterile fashion. Pfannenstiel skin incision was made with the scalpel and carried through to the underlying layer of fascia with the scalpel. Fascia was nicked in the midline and the incision e xtended laterally. The rectus bellies were dissected off superiorly and inferiorly with out complication both sharply and bluntly. The peritoneum was entered digitally. The incision was stretched and a low transverse uterine incision was made with the scalpel. The infant's head was delivered atraumatically followed by the anterior and posterior shoulders without complication the rest of the infant delivered. The cord was clamped and cut and the infant was handed off to awaiting nurse. The placenta was delivered spontaneously immediately following and was noted to be intact and have a three- vessel cord. The uterus was exteriorized cleared of all clots and debris. The uteurs was noted to have an arcuate shape and the placenta was noted to be fundally attached. The incision was closed in a double layer closure using #1 Vicryl and #1 Monocryl. The ovaries and fallopian tubes were noted to be within normal limits. The uterus was returned to the maternal abdomen and gutters were cleared of all clots and debris. The peritoneum was closed with 3-0 Monocryl in a running fashion. Gloves were changed prior to fascial closure. Fascia was closed with 0 PDS in a running fashion. Subcutaneous tissue was copiously irrigated and the skin was closed with 3-0 Monocryl in a subcuticular fashion. Mepilex dressing was applied without complication. Patient was taken to recovery in stable condition. It was discussed with the patient that based on the clinical information obtained during this encounter, combined with her history, at this time I would recommend repeat cesaeran section OR for future deliveries if further pregnancies are desired. Presentation: Positive for Vertex Amniotic Membrane Rupture Type: Artificial Amniotic Fluid Description: Clear Placental Delivery Description: Expressed Placenta Disposition: [facility] Specimen(s) Sent to Pathology: placenta Cord Vessel Description: 3 Vessels Cord Entanglement: None Nuchal Cord Compression: Without compression Cord Gases: ABG and VBG Infant A Gender: Female (1 minute): 8 (5 minute): 9 Delayed Cord Clamping: Yes Complications Risks of Surgery Discussed w/Patient: Bleeding, Anesthesia Risks, Infection, Need for Future C-Sections and Injury to surrounding structure(s) including bowel and bladder Multi Select Codes Urinary/Genital Urinary/Genital CPT Codes: 21173 Delivery [facility]
[2022-03-06] MEDS: Ketorolac 30 MG/ML Syringe IV ×2 (11:26→17:07)
[2022-03-06] MEDS: 0.9% Saline Lock 10 ML Syringe IV ×2 (11:26→17:07)
[2022-03-06] MEDS: Oxytocin 30 units/NS 500 ml 30 UNITS/500 ML IV.SOLN 167 UNITS IV (11:49)
[2022-03-06 12:00] LABS: Bedside Glucose 80 mg/dL (74-106)
[2022-03-06] MEDS: Lactated Ringers 1,000 ML 100 ML IV (15:00)
[2022-03-07 00:02] VITALS: BP 137/97; PULSE 105; RESP 16; TEMP 36.7; O2SAT 97
[2022-03-07] MEDS: 0.9% Saline Lock 10 ML Syringe IV (00:12)
[2022-03-07] MEDS: Ketorolac 30 MG/ML Syringe IV ×2 (00:13→06:03)
[2022-03-07] MEDS: Acetaminophen 500 MG Tablet 1000 MG PO ×4 (03:45→22:36)
[2022-03-07 04:55] VITALS: BP 115/75; PULSE 93; RESP 16; TEMP 36.7
[2022-03-07 05:05] LABS: Bedside Glucose 106 mg/dL (74-106)
--- NOTE | 2022-03-07 05:18 | PCM.DC ---
Discharge Instructions Diet Discharge Diet: No restrictions Activity Discharge Activity: May Not Drive (for 2 weeks or while taking narcotic pain medications.), May Shower and May Take a Tub Bath (in 7 days.) May resume sexual activity in: 4-6 weeks Weight Bearing Status: Full weight bearing Lifting Restrictions: 20 pounds Dressing / Incision Call your doctor if your incision/area has: Continuous Slow Oozing, Sudden Increased Bleeding, Increased Pain/ Swelling, Increased Redness and Foul Smelling Discharge Call your doctor if you observe: Fever of 101 or Higher and Using more than 1 pad per hour Suture Line Care: Avoid Pulling/Pushing and Avoid Pinching/Bending Cleanse incision/area with: Soap & Water and Keep Dressing Clean & Dry Follow Up Care Please Follow Up With: Amie Martin DO When: Call [phone] to make an appointment for an incision check in 1-2 weeks. Test Results: Test results from this visit will be discussed in further detail at your follow-up appointment, if applicable. Discharge Plan Admission Admit Date/Time: 03/05/22 21:54 Primary Reason for Your Visit: section Attending Provider: Amie Martin Primary Care Provider: HERI SUÁREZ Discharge Orders/Prescriptions Prescriptions: New oxycodone-acetaminophen [Percocet] 5-325 mg tablet 1 tab PO Q4H PRN (Reason: pain) 7 Days Qty: 30 0RF ibuprofen 600 mg tablet 600 mg PO Q6H PRN (Reason: pain) 7 Days Qty: 30 0RF Rx Instructions: one tab every 6 hrs as needed for mild to moderate pain Continued PNV-DHA 27 mg iron-1 mg -300 mg capsule 1 cap PO DAILY famotidine [Pepcid] 20 mg tablet 20 mg PO DAILY Qty: 30 6RF ondansetron HCl 4 mg tablet 4 mg PO BID-TID PRN (Reason: nausea) 30 Days Qty: 60 3RF cyclobenzaprine 5 mg tablet 5 mg PO TID PRN (Reason: muscle pain) Qty: 10 0RF No Action (DME) breast pump Device See Rx Instructions .ROUTE .MEDSUPPLY Qty: 1 0RF Rx Instructions: As directed (DME) blood-glucose meter [[employer] Blood Glucose System] Kit See Rx Instructions .ROUTE .MEDSUPPLY Qty: 1 0RF Rx Instructions: As directed (DME) Truetrack Test Strip See Rx Instructions .ROUTE .MEDSUPPLY Qty: 100 4RF Rx Instructions: QID (check fasting and 2 hr pp) (DME) lancets Misc See Rx Instructions .ROUTE .MEDSUPPLY Qty: 100 0RF Rx Instructions: As directed Referrals / Follow Up: HERI SUÁREZ [Other] Disposition Disposition (needs filled in before D/C Order can be placed): Home, Self Care
[2022-03-07 06:50] LABS: Hematocrit 26.5 % (37-47); Hemoglobin 8.6 g/dL (12.0-15.0); Mean Corp Hgb Conc 32.5 g/dL (32-36); Mean Corpuscular Hgb 27.7 pg (27.0-32.0); Mean Corpuscular Volume 85.5 fL (81-99); Mean Platelet Vol. 12.1 fl (6.2-12.0); Platelet Count 138 K/mm3 (150-450); RBC Distribution Width CV 13.2 % (11.6-14.6); RBC Distribution Width SD 40.4 fl (35.1-43.9); White Blood Count 8.2 K/mm3 (4.4-11.0)
--- NOTE | 2022-03-07 07:47 | PCM.PN.OB ---
Subjective Subjective Patient doing well without complaints. Tolerating PO. Ambulating and voiding without difficulty. Feeding well. Denies chest pain, shortness of breath, calf pain/swelling, fevers, chills, lightheadedness. Objective Data Objective Data Vital Signs: Vital Signs Temp Pulse Resp BP Pulse Ox O2 Del Method 98.0 F 93 16 115/75 97 Room Air 03/07/22 04:55 03/07/22 04:55 03/07/22 04:55 03/07/22 04:55 03/07/22 00:02 03/07/22 04:55 Oxygen Delivery Method Room Air Weight: 202 lb 6.15 oz Body Mass Index (BMI) 35.8 Intake & Output: Intake and Output for Last 24 Hours 03/05/22 03/06/22 03/07/22 23:59 23:59 23:59 Intake Total 2623.33 / 2623.33 Output Total 700 / 700 550 / 550 Balance 1923.33 / 1923.33 -550 / -550 Lab / Micro Data Result Diagrams: 03/07/22 04:45 03/05/22 20:25 Labs: Laboratory Results - last 24 hr 03/06/22 11:42: POC Glucose 80 03/07/22 04:43: POC Glucose 106 03/07/22 04:45: WBC 8.2, RBC 3.10 L, Hgb 8.6 L, Hct 26.5 L, MCV 85.5, MCH 27.7, MCHC 32.5, RDW Std Deviation 40.4, RDW Coeff of Awa 13.2, Plt Count 138 L, MPV 12.1 H Micro: Microbiology 03/05/22 23:15 Nasal Secretion SARS-CoV-2 Antigen (Rapid) - Final Physical Exam Const alert and oriented x3 HEENT normocephalic Eyes PERRL Neck full ROM Resp normal respiratory effort GI soft to palpation GI Narrative: FF below U. Dressing dry and intact Palpation: tender other (appropriately) Assessment & Plan (1) Status post delivery: COMMENT: prolonged decelerations, bpp 4/8, 03/06- JV Aida (2) Anemia: (3) Rh negative status during : (4) Gestational diabetes: COMMENT: Carb controlled diet with sliding scale insulin while in hospital status post Celestone; stable. Blood sugars fasting 88, highest PPG 117. Resolved pp (5) induced hypertension: PLAN: Plan s/p LTCS PPD # 1 1. routine post care 2. breast feeding- support given 3. rh negative 4. rubella immune 5. Recheck CBC 6. Glucose wnl 7. BP controlled.
[2022-03-07 08:10] VITALS: BP 111/64; PULSE 97; RESP 18; TEMP 36.6; O2SAT 97
[2022-03-07] MEDS: Famotidine 20 MG Tablet PO (09:43)
[2022-03-07] MEDS: Senna/Docusate Sodium 1 Tablet PO (09:43)
[2022-03-07] MEDS: Ibuprofen 600 MG Tablet PO ×2 (12:01→18:29)
[2022-03-07 12:25] LABS: Hematocrit 26.6 % (37-47); Hemoglobin 8.8 g/dL (12.0-15.0); Mean Corp Hgb Conc 33.1 g/dL (32-36); Mean Corpuscular Volume 84.7 fL (81-99); Platelet Count 147 K/mm3 (150-450); RBC Distribution Width CV 13.4 % (11.6-14.6); RBC Distribution Width SD 40.6 fl (35.1-43.9); Red Blood Count 3.14 M/mm3 (4.2-5.4); White Blood Count 8.5 K/mm3 (4.4-11.0)
[2022-03-07 14:20] VITALS: BP 134/87; PULSE 88; RESP 18; TEMP 36.4; O2SAT 96
[2022-03-07] MEDS: oxyCODONE 5 MG Tablet PO (14:31)
[2022-03-07] MEDS: Ondansetron 8 MG Tablet 4 MG PO (19:24)
[2022-03-07 21:15] VITALS: BP 131/85; PULSE 83; RESP 16; TEMP 36.3; O2SAT 97
[2022-03-08] MEDS: Ibuprofen 600 MG Tablet PO ×4 (00:05→18:33)
[2022-03-08 01:28] VITALS: BP 132/90; PULSE 79; RESP 18; TEMP 36.4; O2SAT 97
[2022-03-08] MEDS: Ondansetron 8 MG Tablet 4 MG PO ×3 (01:34→23:10)
[2022-03-08] MEDS: oxyCODONE 5 MG Tablet PO ×3 (01:34→23:10)
[2022-03-08] MEDS: Acetaminophen 500 MG Tablet 1000 MG PO ×4 (04:40→23:10)
--- NOTE | 2022-03-08 07:49 | PCM.PN.OB ---
Subjective Subjective Patient doing well without complaints. Tolerating PO. Ambulating and voiding without difficulty. Feeding well. Denies chest pain, shortness of breath, calf pain/swelling, fevers, chills, lightheadedness. Objective Data Objective Data Vital Signs: Vital Signs Temp Pulse Resp BP Pulse Ox O2 Del Method 97.5 F L 79 18 132/90 H 97 Room Air 03/08/22 01:28 03/08/22 01:28 03/08/22 01:28 03/08/22 01:03/08/22 01:03/08/22 01:28 Oxygen Delivery Method Room Air Weight: 202 lb 6.15 oz Body Mass Index (BMI) 35.8 Intake & Output: Intake and Output for Last 24 Hours 03/06/22 03/07/22 03/08/22 23:59 23:59 23:59 Intake Total 2623.33 / 2623.33 Output Total 700 / 700 550 / 550 Balance 1923.33 / 1923.33 -550 / -550 Lab / Micro Data Result Diagrams: 03/07/22 12:05 03/05/22 20:25 Labs: Laboratory Results - last 24 hr 03/07/22 12:05: WBC 8.5, RBC 3.14 L, Hgb 8.8 L, Hct 26.6 L, MCV 84.7, MCH 28.0, MCHC 33.1, RDW Std Deviation 40.6, RDW Coeff of Awa 13.4, Plt Count 147 L, MPV 12.0 Micro: Microbiology 03/05/22 23:15 Nasal Secretion SARS-CoV-2 Antigen (Rapid) - Final Physical Exam Const alert and oriented x3 HEENT normocephalic Eyes PERRL Neck full ROM Resp normal respiratory effort GI soft to palpation GI Narrative: FF below U. Dressing dry and intact Palpation: tender other (appropriately) Assessment & Plan (1) Status post delivery: COMMENT: prolonged decelerations, bpp 4/8, 03/06- JV Aida (2) Anemia: (3) Rh negative status during : (4) induced hypertension: PLAN: Plan s/p LTCS PPD #2 1. routine post care 2. breast feeding- support given 3. rh positive 4. rubella immune 5. continue to monitor BP 6. Plans home tomorrow.
[2022-03-08 08:59] VITALS: BP 109/73; PULSE 74; RESP 16; TEMP 36.7; O2SAT 96
[2022-03-08] MEDS: Senna/Docusate Sodium 1 Tablet PO (11:15)
[2022-03-08] MEDS: Famotidine 20 MG Tablet PO (11:15)
[2022-03-08 12:00] VITALS: BP 122/83; PULSE 79; RESP 16; TEMP 36.9; O2SAT 97
[2022-03-08 16:35] VITALS: BP 114/84; PULSE 71; RESP 16; TEMP 36.6; O2SAT 99
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
[2022-03-08 20:15] VITALS: BP 114/77; PULSE 68; RESP 16; TEMP 36.6; O2SAT 96
[2022-03-09 01:20] VITALS: BP 122/78; PULSE 84; RESP 16; TEMP 36.6; O2SAT 98
[2022-03-09] MEDS: Ibuprofen 600 MG Tablet PO ×2 (01:26→09:02)
[2022-03-09] MEDS: Acetaminophen 500 MG Tablet 1000 MG PO ×2 (04:53→11:20)
--- NOTE | 2022-03-09 07:54 | PCM.PN.OB ---
Subjective Subjective Patient doing well without complaints. Tolerating PO. Ambulating and voiding without difficulty. Feeding well. Denies chest pain, shortness of breath, calf pain/swelling, fevers, chills, lightheadedness. Objective Data Objective Data Vital Signs: Vital Signs Temp Pulse Resp BP Pulse Ox O2 Del Method 97.8 F 84 16 122/78 H 98 Room Air 03/09/22 01:20 03/09/22 01:20 03/09/22 01:20 03/09/22 01:20 03/09/22 01:20 03/09/22 01:20 Oxygen Delivery Method Room Air Weight: 202 lb 6.15 oz Body Mass Index (BMI) 35.8 Intake & Output: Intake and Output for Last 24 Hours 03/07/22 03/08/22 03/09/22 23:59 23:59 23:59 Output Total 550 / 550 Balance -550 / -550 Lab / Micro Data Result Diagrams: 03/07/22 12:05 03/05/22 20:25 Micro: Microbiology 03/05/22 23:15 Nasal Secretion SARS-CoV-2 Antigen (Rapid) - Final Physical Exam Const alert and oriented x3 HEENT normocephalic Eyes PERRL Neck full ROM Resp normal respiratory effort GI soft to palpation GI Narrative: FF below U. Dressing dry and intact Palpation: tender other (appropriately) Assessment & Plan (1) Status post delivery: COMMENT: prolonged decelerations, bpp 4/8, 03/06- SHANA Parra (2) Rh negative status during : PLAN: Plan s/p LTCS PPD # 3 1. routine post care 2. breast feeding- support given 3. rh positive 4. rubella immune 5. home today
--- NOTE | 2022-03-09 08:06 | PCM.DC.SUM ---
Providers Date of Admission: 03/05/22 Primary Care Physician: HERI SUÁREZ Reason For Visit: PRIMARY Diagnosis Discharge Diagnosis (1) Status post delivery: Status: Acute Code(s): Z98.891 - History of uterine scar from previous surgery (2) Rh negative status during : Status: Acute Code(s): O26.899 - Other specified related conditions, unspecified trimester; Z67.91 - Unspecified blood type, Rh negative Plan s/p LTCS PPD # 3 1. routine post care 2. breast feeding- support given 3. rh positive 4. rubella immune 5. home today Medications at Discharge Home Medications multivitamin no.47-iron fum 27 mg-folate no.1 1 mg-dha 300 mg capsule (PNV-DHA) 1 cap PO DAILY 07/28/21 blood sugar diagnostic ([employer] Test strips) #100 ea 01/05/22 blood-glucose meter ([employer] Blood Glucose System kit) #1 ea 01/05/22 lancets #100 ea 01/05/22 breast pump #1 ea 01/12/22 famotidine 20 mg tablet (Pepcid) 20 mg PO DAILY hearburn #30 tabs 02/23/22 ondansetron HCl 4 mg tablet 4 mg PO BID-TID PRN nausea 30 days #60 tabs 02/23/22 cyclobenzaprine 5 mg tablet 5 mg PO TID PRN muscle pain #10 tabs 02/25/22 ibuprofen 600 mg tablet 600 mg PO Q6H PRN pain 7 days #30 tabs 03/07/22 oxycodone-acetaminophen 5 mg-325 mg tablet (Percocet) 1 tab PO Q4H PRN pain 7 days #30 tabs 03/07/22 Hospital Course Operations section Summary of Care Provided Hospital Course: Patient underwent section with routine recovery, return of normal bowel and bladder function. Ambulating, voiding and tolerating PO. Stable for discharge home POD #3. Weight / BMI Weight Weight: 202 lb 6.15 oz Body Mass Index (BMI) 35.8 ABG / Lab / Microbiology Data Result Diagrams: 03/07/22 12:05 03/05/22 20:25 Microbiology: Microbiology 03/05/22 23:15 Nasal Secretion SARS-CoV-2 Antigen (Rapid) - Final D/C Instructions Discharge Diet: No restrictions May resume sexual activity in: 4-6 weeks Weight Bearing Status: Full weight bearing Call your doctor if your incision/area has: Continuous Slow Oozing, Sudden Increased Bleeding, Increased Pain/ Swelling, Increased Redness and Foul Smelling Discharge Call your doctor if you observe: Fever of 101 or Higher and Using more than 1 pad per hour Suture Line Care: Avoid Pulling/Pushing and Avoid Pinching/Bending Cleanse incision/area with: Soap & Water and Keep Dressing Clean & Dry Please Follow Up With: Amie Martin DO When: Call [phone] to make an appointment for an incision check in 1-2 weeks. Meaningful Use Info Meaningful Use Diagnoses (Choose all that apply): None applicable Discharge Plan Admission Admit Date/Time: 03/05/22 21:54 Primary Reason for Your Visit: section Attending Provider: Amie Martin Primary Care Provider: HERI SUÁREZ Discharge Orders/Prescriptions Prescriptions: New oxycodone-acetaminophen [Percocet] 5-325 mg tablet 1 tab PO Q4H PRN (Reason: pain) 7 Days Qty: 30 0RF ibuprofen 600 mg tablet 600 mg PO Q6H PRN (Reason: pain) 7 Days Qty: 30 0RF Rx Instructions: one tab every 6 hrs as needed for mild to moderate pain Continued PNV-DHA 27 mg iron-1 mg -300 mg capsule 1 cap PO DAILY famotidine [Pepcid] 20 mg tablet 20 mg PO DAILY Qty: 30 6RF ondansetron HCl 4 mg tablet 4 mg PO BID-TID PRN (Reason: nausea) 30 Days Qty: 60 3RF cyclobenzaprine 5 mg tablet 5 mg PO TID PRN (Reason: muscle pain) Qty: 10 0RF No Action (DME) breast pump Device See Rx Instructions .ROUTE .MEDSUPPLY Qty: 1 0RF Rx Instructions: As directed (DME) blood-glucose meter [[employer] Blood Glucose System] Kit See Rx Instructions .ROUTE .MEDSUPPLY Qty: 1 0RF Rx Instructions: As directed (DME) [employer]etrack Test Strip See Rx Instructions .ROUTE .MEDSUPPLY Qty: 100 4RF Rx Instructions: QID (check fasting and 2 hr pp) (DME) lancets Misc See Rx Instructions .ROUTE .MEDSUPPLY Qty: 100 0RF Rx Instructions: As directed Referrals / Follow Up: HERI SUÁREZ [Other] Disposition Disposition (needs filled in before D/C Order can be placed): Home, Self Care
[2022-03-09 08:35] VITALS: BP 116/86; PULSE 80; RESP 16; TEMP 36.4; O2SAT 98
[2022-03-09] MEDS: Senna/Docusate Sodium 1 Tablet PO (09:51)
[2022-03-09] MEDS: Famotidine 20 MG Tablet PO (09:52)
[2022-03-09 13:31] LABS: Pathology Specimen OB SEE PATHOLOGY REPORT
== END 2022-03-09 11:55 | disposition home or self-care (01) | DRG 788 ==
LOC: WPOUT 22:03 → WP 22:03
PROVIDERS: Nurse Practitioner Women's Health; Admitting Provider Obstetrics & Gynecology; Visit Provider Obstetrics & Gynecology
DX: O36.8130 Decreased fetal movements, third trimester, not applicable or unspecified (principal); O24.420 Gestational diabetes mellitus in childbirth, diet controlled; D64.9 Anemia, unspecified; O13.4 Gestational [pregnancy-induced] hypertension without significant proteinuria, complicating childbirth; O76 Abnormality in fetal heart rate and rhythm complicating labor and delivery; O99.02 Anemia complicating childbirth; Z37.0 Single live birth; O34.03 Maternal care for unspecified congenital malformation of uterus, third trimester; Q51.810 Arcuate uterus; Z20.822 Contact with and (suspected) exposure to COVID-19; Z3A.38 38 weeks gestation of pregnancy; Z86.16 Personal history of COVID-19
CPT/HCPCS: 59050; 80053; 81001; 82570; 82962; 84156; 85025; 85027; 86850; 86900; 86901; 87426; 88307; 99218; J7120; A4216; G0378; J2405

== ENCOUNTER → 2022-03-21 | Outpatient (CLI) | payer OTHER, SELFPAY ==
[2022-03-21 11:05] LABS: Absolute Lymphocyte Count 2.52 X10^3/uL (0.83-4.51); Absolute Neutrophil Count 4.3 X10^3/uL (2.0-7.7); Basophil# 0.04 X10^3/uL; Basophil% 0.5 % (0-1); Eosinophil# 0.22 X10^3/uL; Eosinophils% 2.9 % (0-5); Hematocrit 34.8 % (37-47); Hemoglobin 10.9 g/dL (12.0-15.0); Lymphocyte # 2.52 X10^3/ul (0.83-4.51); Lymphocyte % 33.5 % (19-41); Mean Corp Hgb Conc 31.3 g/dL (32-36); Mean Corpuscular Volume 86.1 fL (81-99); Mean Platelet Vol. 10.9 fl (6.2-12.0); Monocyte# 0.36 X10^3/uL; Monocyte% 4.8 % (0-10); NRBC Flagged by Analyzer 0 % (0-5); Neutrophil # 4.34 X10^3/uL (2.7-7.7); Neutrophil % 57.6 % (47-70); Platelet Count 235 K/mm3 (150-450); RBC Distribution Width CV 12.5 % (11.6-14.6); RBC Distribution Width SD 39.8 fl (35.1-43.9); Red Blood Count 4.04 M/mm3 (4.2-5.4); White Blood Count 7.5 K/mm3 (4.4-11.0)
== END | disposition home or self-care (01) ==
LOC: PAVLAB 10:52
PROVIDERS: Referring Provider Nurse Practitioner Women's Health; Visit Provider Nurse Practitioner Women's Health
DX: D64.9 Anemia, unspecified (principal)
CPT/HCPCS: 36415; 85025

== ENCOUNTER → 2023-12-02 | Outpatient (CLI) | payer OTHER, SELFPAY ==
[2023-12-02 11:25] LABS: Estradiol 148.2 pg/mL; Prolactin 5.7 ng/mL
[2023-12-04 09:00] LABS: Progesterone Level 10.93 ng/mL (See Comment)
== END | disposition home or self-care (01) ==
LOC: LAB 10:20
PROVIDERS: Referring Provider Obstetrics & Gynecology; Visit Provider Obstetrics & Gynecology
DX: Q51.810 Arcuate uterus (principal); N97.2 Female infertility of uterine origin
CPT/HCPCS: 36415; 82670; 84144; 84146

== ENCOUNTER → 2023-12-25 | Outpatient (CLI) | payer OTHER, SELFPAY ==
--- NOTE | 2023-12-25 16:22 | US_ITS ---
STUDY: ULTRASOUND OF THE FEMALE PELVIS - COMPLETE REASON FOR EXAM: Female, 28 years old. infertility LMP: 12/09/2023 TECHNIQUE: Transabdominal and Transvaginal TECHNICAL QUALITY: Adequate. COMPARISON: None. FINDINGS: The uterus is anteverted and is in a midline position. The uterus measures 7.2 x 5.6 x 4.2 cm. There is a Nabothian cyst of the cervix. The endometrium measures 8 mm in thickness, and is hyperechoic. There is no demonstrated endometrial mass. Transverse image of the fundus the uterus demonstrates separation of the endometrium with intervening myometrium suggestive of a bicornuate uterus. There is no demonstrated myometrial mass. I.U.D. - The patient does not have an I.U.D. The right ovary is visualized. The right ovary measures 3.3 x 2.1 x 1.7 cm. There is no right ovarian cyst or ovarian mass. There is no visualized right adnexal mass or complex lesion. There is normal arterial and normal venous vascularity. The left ovary is visualized. The left ovary measures 2.5 x 1.5 x 1.4 cm. There is no left ovarian cyst or ovarian mass. There is no visualized left adnexal mass or complex lesion. There is normal arterial and normal venous vascularity. There is minimal fluid in the cul-de-sac. The pre void volume of the bladder was 16 ml. The post void volume of the bladder was ml. Polycystic ovary disease: No. 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 Pelvic MRI may be useful. Electronically Signed: Gopi Lopez MD at 21:59 EDT ,
== END | disposition home or self-care (01) ==
LOC: US 16:21
PROVIDERS: Referring Provider Obstetrics & Gynecology; Visit Provider Obstetrics & Gynecology
DX: N97.2 Female infertility of uterine origin (principal)
CPT/HCPCS: 76830; 76856

== ENCOUNTER → 2024-06-03 | Outpatient (CLI) | payer OTHER, SELFPAY ==
--- NOTE | 2024-06-03 11:15 | MRI_ITS ---
EXAM: MR PELVIS WITHOUT AND WITH INTRAVENOUS CONTRAST CLINICAL INDICATION: Bicornuate uterus, infertility TECHNIQUE: Multiplanar and multisequence MR images of the pelvis without and with intravenous contrast. CONTRAST: 17 cc of Clariscan IV. COMPARISON: Pelvic ultrasound 12/25/2023. FINDINGS: APPENDIX: No evidence of acute appendicitis. INTRAPERITONEAL SPACE: Unremarkable. No ascites or other fluid collection. BLADDER: Unremarkable. OVARIES: Multiple ovarian follicles bilaterally. UTERUS/CERVIX: Mild arcuate configuration to the uterus. Nabothian cysts in the cervix. Endometrial stripe is normal in thickness and appearance. BONES/JOINTS: Unremarkable. No suspicious lytic or blastic abnormality. SOFT TISSUES: Unremarkable. No pelvic wall hernia. LYMPH NODES: Unremarkable. No enlarged lymph nodes. MRI/Pelvis W/WO Contrast IMPRESSION: 1. Mild arcuate configuration to the uterus. No bicornuate uterus. 2. Nabothian cysts in the cervix. 3. Multiple ovarian follicles bilaterally. Consider polycystic ovary disease. Electronically Signed: Yves Bryant MD at 7:51 EDT ,
== END | disposition home or self-care (01) ==
LOC: MRI 11:10
PROVIDERS: Referring Provider Obstetrics & Gynecology; Visit Provider Obstetrics & Gynecology
DX: N97.2 Female infertility of uterine origin (principal)
CPT/HCPCS: 72197; A9575

== ENCOUNTER → 2025-07-07 | Outpatient (CLI) | payer OTHER, SELFPAY ==
--- OUTSIDE RECORDS SUMMARY | 2025-07-07 19:59 | XMS RPT_ITS | CCD ---
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 Name Role Phone Arjun Thompson Unavailable Unavailable Unavailable Primary Care Provider Unavailabl e BECKER, JIL Admitting Unavailable BECKER, JIL Primary Care Unavailable BECKER, JIL Attending Unavailable BECKER, JIL Primary Care Unavailable BECKER, JIL Attending Unavailable BECKER, JIL Admitting Unavailable KAMINI, HERI Primary Care Unavailable BECKER, JIL Attending Unavailable BECKER, JIL Admitting Unavailable KAMINI, HERI Primary Care Unavailable GRATER ASTON Admitting Unavailable GRATER ASTON Attending Unavailable KAMINI, HERI Primary Care Unavailable BECKER, JIL Attending Unavailable BECKER, JIL Admitting Unavailable KAMINI, HERI Primary Care Unavailable BECKER, JIL Attending Unavailable BECKER, JIL Admitting Unavailable SOUZDAYASMINE JOHNSONITRI Attending Unavailabl e JOSE M, BRIANNA Admitting Unavailabl e KAMINI, HERI Primary Care Unavailable KAMINI, HERI Primary Care Unavailable BAE VILLA Admitting Unavailable ABE VILLA Attending Unavailable JEANNIE FUNG Consulting Unavailabl e ALYSE LEIGH Consulting Unavailable BECKER, JIL Primary Care Unavailable BECKER, JIL Attending Unavailable BECKER, JIL Admitting Unavailable KAMINI DR HERI EDWARD Primary Care Physician Jessica Cortez Unavailable Unavailable Dr. Amie Martin Attending Provider [phone] KAMINI, HERI Primary Care Provider Unavailabl e KAMINI HERI Referring Provider Unavailable Dr. Nay Mckinney Attending Provider David FABIAN, GUNNAR Miller Attending Provider Care Physician, No Primary Primary Care Provider Unavailable Care Physician, No Primary Referring Provider Un available Dr. Amie Martin Attending Provider [phone] Dr. Amie Martin Attending Provider [phone] KAMINIHERI STANLEY Primary Care Provider Unavailabl e HERI SUÁREZ Referring Provider Unavailable Dr. Lorenzo Bass Attending Provider Dr. Nay Mckinney Referring Provider [phone] Dr. Nay Mckinney Other Provider Dr. Amie Martin Attending Provider [phone] Dr. Lorenzo Bass Attending Provider Dr. Amie Martin Admit Provider Dr. Amie Martin Other Provider KAMINIHERI STANLEY Primary Care Provider Dr. Nay Mckinney Attending Provider [phone] Donnie PEDIATRIC OPHTHALMOLOGIST, GUNNAR Barba Attending Provider [phone] ALONSO ACCOUNTING REPRESENTATIVE-CORPORATE SPECIALIST, KEVIN Haines Primary Care Physicia n Care Physician, No Primary Primary Care Provider Unavailable Care Physician, No Primary Referring Provider Un available Dr. Amie Martin Attending Provider [phone] OMKAR LOZANO DO Attending Unavailabl e ALONSO ACCOUNTING REPRESENTATIVE-CORPORATE SPECIALIST, KEVIN Haines Primary Care Unava ilable ALONSO ACCOUNTING REPRESENTATIVE-CORPORATE SPECIALIST, KEVIN M Attending Unava ilable ALONSO ACCOUNTING REPRESENTATIVE-CORPORATE SPECIALIST, KEVIN M Primary Care Unava ilable ALONSO ACCOUNTING REPRESENTATIVE-CORPORATE SPECIALIST, KEVIN M Attending Unava ilable ALONSO ACCOUNTING REPRESENTATIVE-CORPORATE SPECIALIST, KEVIN M Primary Care Unava ilable ALONSO ACCOUNTING REPRESENTATIVE-CORPORATE SPECIALIST, KEVIN M Attending Unava ilable ALONSO ACCOUNTING REPRESENTATIVE-CORPORATE SPECIALIST, KEVIN M Primary Care Unava ilable Care Physician, No Primary Primary Care Unava ilable Care Physician, No Primary Referring Unava ilable Amie Martin Attending Unavailabl e Vande Velde, Amie Attending Unavailabl e Care Physician, No Primary Referring Unava ilable Care Physician, No Primary Primary Care Unava ilable Vande Velde, Amie Attending Unavailabl e Care Physician, No Primary Primary Care Unava ilable Care Physician, No Primary Referring Unava ilable Vande Velde, Amie Attending Unavailabl e Vande Velde, Amie Referring Unavailabl e Care Physician, No Primary Primary Care Unava ilable Vande Velde, Amie Attending Unavailabl e Vande Velde, Amie Referring Unavailabl e Care Physician, No Primary Primary Care Unava ilable Care Physician, No Primary Primary Care Unava ilable Vande Velde, Amie Referring Unavailabl e Vande Velde, Amie Attending Unavailabl e ALONSO ACCOUNTING REPRESENTATIVE-CORPORATE SPECIALIST, KEVIN Haines Attending Unava ilable ALONSO ACCOUNTING REPRESENTATIVE-CORPORATE SPECIALIST, KEVIN Haines Primary Care Unava ilable ALONSO ACCOUNTING REPRESENTATIVE-CORPORATE SPECIALIST, KEVIN Haines Primary Care Unava ilable HERBERT ACCOUNTING REPRESENTATIVE-CORPORATE SPECIALIST, ESSENCE Jarrett Attending Unavaila ble Allergies Allergy Classification Reported Allergen(s) Allergy Type Date of Onset Reaction(s) Facility (1 source) buPROPion Drug Allergy [facility] Repository (12 sources) buPROPion; Translations: [bupropion] Drug Allergy 2 Other [facility] (2 sources) Contrast media Allergy to substance Red Dye, rash [facility] (1 source) buPROPion Drug Allergy 4 [facility] Repository Medications Current Medications Medication Drug Class(es) Dates Sig (Normalized) Sig (Original) Blood-Glucose Meter ([employer] Blood Glucose System) kit (9 sources) Start: 01-05-2022 Blood-Glucose Meter ([employer] Blood Glucose System) kit Active 0 .ROUTE .MEDSUPPLY January 05, 2022 11:47am As directed Start: 01-05-2022 End: 03-21-2022 Blood-Glucose Meter ([employer] Blood Glucose System) kit Discontinued 0 .ROUTE .MEDSUPPLY January 05, 2022 12:00am March 21, 2022 10:34am As directed Start: 01-05-2022 Blood-Glucose Meter ([employer] Blood Glucose System) kit Active 0 .ROUTE .MEDSUPPLY January 05, 2022 12:00am As directed cephalexin 500 mg oral capsule (1 source) Cephalosporin Antibacterial Start: 08-31-2021 End: 09-07-2021 Keflex 500 mg oral capsule Dose : 500 mg = 1 cap(s), Oral, QID, X 7 day(s), # 28 cap(s), 0 Refill(s), 09/07/21 19:31:00 EST, 77.3 Start Date: 08/31/21 Stop Date: 09/07/21 Status: Ordered cholecalciferol 0.05 mg oral capsule (1 source) Vitamin D Start: 11-20-2023 take 50 ug by mouth once daily Cholecalciferol (Vitamin D3) Active 50 MCG PO DAILY November 20, 2023 12:00am docosahexaenoic acid 200 mg oral capsule (3 sources) Start: 11-20-2023 Docosahexaenoic Acid ( Dha) 200 mg capsule Active MG PO November 20, 2023 12:00am Start: 03-21-2022 End: 07-19-2023 Docosahexaenoic Acid (Prenat al Dha) 200 mg capsule Discontinued MG PO March 21, 2022 12:00am July 19, 2023 3:40pm escitalopram 10 mg oral tablet (1 source) Serotonin Reuptake Inhibitor Start: 01-09-2020 take 0.5 tablet by mouth once daily, then take 1 tablet by mouth once daily escitalopram 10 mg oral tablet See Instructions, TAKE 1/2 TAB BY MOUTH ONCE DAILY FOR 6 DAYS THEN INCREASE TO 1 TABLET DAILY THEREAFTER, # 30 tab(s), 5 Refill(s), Pharmacy: [id number], 157.5, cm, 12/18/19 9:04:00 EDT, Height, kg, 12/18/19 9:04:00 EDT, Dosing Weight Start Date: 01/09/20 Status: Ordered Ethinyl Estradiol / Ferrous fumarate / Norethindrone (1 source) Estrogen Start: 01-31-2019 Lo Loestrin Fe oral tablet 0 Refill(s) Start Date: 01/31/19 Status: Ordered metoclopramide 10 mg oral tablet (3 sources) Dopamine-2 Receptor Antagonist Start: 08-31-2021 End: 09-07-2021 take 1 tablet by mouth three times daily Metoclopramide Hcl (Reglan) 10 mg tablet Active 10 MG PO THREE TIMES A DAY 90 September 06, 2021 11:07am Multivit 39-Dqot-Gvrxpp 1-Dha (Pnv-Dha) 27 mg iron-1 mg -300 mg capsule (10 sources) Start: 07-28-2021 Multivit 85-Itgj-Vrsdgr 1-Dha (Pnv-Dha) 27 mg iron-1 mg -300 mg capsule Active CAP PO July 28, 2021 4:20pm Start: 07-28-2021 End: 03-21-2022 take 1 capsule by mouth once daily Multivit 35-Oghs-Jfjfte 1-Dha (Pnv-Dha) 27 mg iron-1 mg -300 mg capsule Discontinued 1 CAP PO DAILY July 28, 2021 1:00am March 21, 2022 10:34am Start: 07-28-2021 take 1 capsule by mo [facility] once daily Multivit 15-Hznn-Rfapil 1-Dha (Pnv-Dha) 27 mg iron-1 mg -300 mg capsule Active 1 CAP PO DAILY July 28, 2021 1:00am Start: 07-28-2021 Multivit 47-Ir on-Folate 1-Dha (Pnv-Dha) 27 mg iron-1 mg -300 mg capsule Active CAP PO July 28, 2021 1:00am Multivitamins with Vitamin B Complex, Vitamin C, Minerals and L-Methylfolate oral capsule (1 source) Start: 10-23-2023 take 1 capsule by mouth once daily Multivitamins with Vitamin B Complex, Vitamin C, Minerals and L-Methylfolate oral capsule Dose = 1 cap(s), Oral, Daily, 0 Refill(s) Start Date: 10/23/23 Status: Ordered rizatriptan 10 mg oral tablet (1 source) Serotonin-1b and Serotonin-1d Receptor Agonist Start: 12-18-2019 rizatriptan 10 mg oral tablet Dose : 10 mg = 1 tab(s), Oral, Once, PRN as needed for migraine headache, # 6 tab(s), 0 Refill(s) Start Date: 12/18/19 Status: Ordered Completed/Discontinued Medications Medication Drug Class(es) Dates Sig (Normalized) Sig (Original) acetaminophen 325 mg / oxyCODONE hydrochloride 5 mg oral tablet (3 sources) Opioid Agonist Start: 03-07-2022 End: 03-21-2022 take 1 tablet by mouth every four hours Oxycodone-Acetamino phen (Percocet) 5-325 mg tablet Discontinued 1 TABLET PO Q4H 30 7 March 07, 2022 March 21, 2022 10:34am Breast Pump (16 sources) Start: 01-12-2022 End: 07-19-2023 Breast Pump Discontinued 0 .ROUTE .MEDSUPPLY January 12, 2022 10:14am July 19, 2023 3:40pm As directed Start: 01-12-2022 Breast Pump Ac tive 0 .ROUTE .MEDSUPPLY January 12, 2022 10:14am As directed Start: 01-12-2022 End: 01-12-2022 Breast Pump Discontinued 0 . ROUTE .MEDSUPPLY January 12, 2022 12:00am January 12, 2022 10:14am As directed citric acid 0.01 mg/mg / lactic acid 0.018 mg/mg / potassium bitartrate 0.004 mg/mg vaginal gel (1 source) Calculi Dissolution Agent, Anti-coagulant Start: 04-20-2022 End: 11-20-2023 Lactic Ucku-Zqupzw-Unhsdhiyh (Phexxi) 1.8-1-0.4 % gel Discontinued 1 APPFUL VAGINAL per package directions 60 April 20, 2022 12:00am November 20, 2023 8:09am insert 1 applicatorful vaginally within 1 hour before each act of vaginal intercourse cyclobenzaprine hydrochloride 5 mg oral tablet (6 sources) Muscle Relaxant Start: 02-25-2022 End: 03-21-2022 take 5 mg by mouth three times daily Cyclobenzaprine Discontinued 5 MG PO THREE TIMES A DAY February 25, 2022 12:00am March 21, 2022 10:34am Start: 05-30-2019 cyclobenzaprin e 5 mg oral tablet See Instructions, # 10 tab(s), Refill #: 2 Total Refills: 2, TAKE 1 TABLET BY MOUTH DAILY NEEDED FOR MUSCLE SPASM, [id number] Start Date: 05/30/19 Status: Ordered doxylamine succinate 10 mg / pyridoxine hydrochloride 10 mg delayed release oral tablet (10 sources) Start: 09-09-2021 End: 12-28-2021 take 1 tablet by mouth three times daily Doxylamine-Pyridoxine (Vit B6) (Diclegis) 10-10 mg tablet,delayed release (DR/EC) Discontinued 1 TABLET PO THREE TIMES A DAY 90 September 09, 2021 1:00am December 28, 2021 1:28pm famotidine 20 mg oral tablet (20 sources) Histamine-2 Receptor Antagonist Start: 08-20-2021 End: 03-21-2022 take 1 tablet by mouth once daily Famotidine (Pepcid) 20 mg tablet Discontinued 20 MG PO DAILY January 18, 2022 5:24pm February 23, 2022 11:27am ibuprofen 600 mg oral tablet (3 sources) Nonsteroidal Anti-inflammatory Drug Start: 03-07-2022 End: 04-20-2022 take 1 tablet by mouth every six hours as needed for pain Ibuprofen Discontinued 600 MG PO EVERY 6 HOURS 30 March 07, 2022 12:00am April 20, 2022 10:06am one tab every 6 hrs as needed for mild to moderate pain ondansetron 4 mg oral tablet (20 sources) Serotonin-3 Receptor Antagonist Start: 01-18-2022 End: 03-21-2022 Ondansetron Hcl Discontinued 4 MG PO 2 to 3 times per day 60 February 23, 2022 11:27am March 21, 2022 10:34am Start: 09-09-2021 End: 11-12-2021 take 4 mg by mouth every eight hours Ondansetron Hcl Discontinued 4 MG PO Q8H 60 September 09, 2021 1:00am November 12, 2021 2:38pm Start: 08-05-2021 End: 11-12-2021 take 4 mg by mouth every four hours Ondansetron Discontinued 4 MG PO Q4H 60 August 05, 2021 1:00am November 12, 2021 2:38pm promethazine hydrochloride 25 mg oral tablet (20 sources) Phenothiazine Start: 09-03-2021 End: 11-12-2021 take 25 mg by mouth every six hours Promethazine Discontinued 25 MG PO EVERY 6 HOURS September 03, 2021 1:00am November 12, 2021 2:38pm Start: 08-03-2021 End: 09-09-2021 take 12.5 mg by mouth every six hours Promethazine Discontinued 12.5 MG PO EVERY 6 HOURS August 03, 2021 1:00am September 09, 2021 12:37pm rho(d) immune globulin, human 1500 unt prefilled syringe (2 sources) Human Immunoglobulin G Start: 12-28-2021 End: 12-28-2021 inject 1500 [IU] by intramuscular injection once RhoGAM Ultra-Filtered PLUS (rho(D) immune globulin) 1,500 unit (300 mcg) Discontinued 1500 UNIT IM ONCE December 28, 2021 1:15pm December 28, 2021 2:04pm sertraline 50 mg oral tablet (2 sources) Serotonin Reuptake Inhibitor Start: 03-21-2022 End: 07-19-2023 take 1 tablet by mouth once daily Sertraline (Zoloft) 50 mg tablet Discontinued 50 MG PO DAILY March 21, 2022 12:00am July 19, 2023 3:40pm topiramate 25 mg oral tablet (1 source) Start: 01-17-2020 End: 06-15-2020 topiramate 25 mg oral tablet Dose : 50 mg = 2 tab(s), Oral, qDay, # 60 tab(s), 4 Refill(s), Pharmacy: [facility] [id number] [facility], 157.5, cm, 12/18/19 9:04:00 EDT, Height, kg, 12/18/19 9:04:00 EDT, Dosing Weight Start Date: 01/17/20 Stop Date: 06/15/20 Status: Ordered Vitamin D3 50,000 intl units oral capsule (1 source) Start: 05-29-2019 End: 08-27-2019 Vitamin D3 50,000 intl units oral capsule Dose : 50,000 International_Unit = 1 cap(s), Oral, qWeek, # 13 cap(s), 0 Refill(s), Pharmacy: [facility] [place] Start Date: 05/29/19 Stop Date: 08/27/19 Status: Ordered Problems Active Problems Problem Classification Problem Date Documented Date Episodic/Chronic Acute and chronic tonsillitis (1 source) Hypertrophy of adenoids; Translations: [HYPERTROPHY OF ADENOIDS] Onset: 03-25-2021 Chronic Anxiety disorders (20 sources) Post-traumatic stress disorder, unspecified; Translations: [Generalized anxiety disorder] Onset: 06-30-2021 07-23-2019 Chronic Contraceptive and procreative management (2 sources) Oral contraception 05-28-2019 Episodic Deficiency and other anemia (3 sources) Anemia; Translations: [Anemia, unspecified] 11-14-2023 Episodic Deficiency and other anemia (3 sources) Anemia, unspecified; Translations: [Anemia, unspecified] Episodic Deficiency and other anemia (1 source) Iron deficiency anemia 10-23-2023 Episodic Diabetes or abnormal glucose tolerance complicating ; childbirth; or the puerperium (20 sources) Gestational diabetes mellitus; Translations: [Gestational diabetes mellitus in , unspecified control] Episodic Female infertility (3 sources) Female infertility of uterine origin; Translations: [Female infertility of uterine origin] Onset: 06-22-2024 11-20-2023 Chronic Genitourinary congenital anomalies (7 sources) Uterus arcuatus; Translations: [Arcuate uterus] Onset: 12-07-2023 Chronic Headache; including migraine (5 sources) Chronic migraine without aura, intractable, without status migrainosus; Translations: [Migraine, unspecified, not intractable, without status migrainosus] Onset: 03-25-2021 02-13-2019 Chronic Headache; including migraine (1 source) Headache; including migraine; Translations: [HEADACHE UNSPECIFIED] Onset: 10-26-2020 Hemorrhage during ; abruptio placenta; placenta previa (20 sources) Placenta previa marginalis; Translations: [Partial placenta previa NOS or without hemorrhage, unspecified trimester] Episodic Hypertension complicating ; childbirth and the puerperium (6 sources) -induced hypertension; Translations: [Gestational [-induced] hypertension without significant proteinuria, unspecified trimester] Episodic Malaise and fatigue (2 sources) Fatigue 07-23-2019 Episodic Miscellaneous mental health disorders (3 sources) depression; Translations: [ depression] Episodic Mood disorders (20 sources) Major depressive disorder, single episode, unspecified; Translations: [Depressive disorder] Onset: 03-25-2021 Chronic Nutritional deficiencies (2 sources) Vitamin D deficiency 09-17-2019 Chronic Other aftercare (1 source) [facility] (current) use of non-steroidal anti-inflammatories (NSAID); Translations: [MAINTENANCE JOB TITLES USE NSAID] Onset: 06-30-2021 Episodic Other aftercare (1 source) Other correction (current) drug therapy; Translations: [OTH MAINTENANCE JOB TITLES CURRENT DRUG THERAPY] Onset: 06-30-2021 Episodic Other aftercare (1 source) Encounter for follow-up examination after completed treatment for conditions other than malignant neoplasm; Translations: [Follow-up examination, following surgery, unspecified] Episodic Other complications of (9 sources) Anemia in mother complicating , childbirth AND/OR puerperium; Translations: [Anemia complicating , third trimester] 03-10-2022 Chronic Other complications of (20 sources) Anemia complicating , third trimester; Translations: [Anemia of mother, antepartum condition or complication] Chronic Other complications of (10 sources) RhD negative; Translations: [Other specified related conditions, unspecified trimester] 11-14-2023 Episodic Other complications of (20 sources) Other specified related conditions, unspecified trimester; Translations: [Other specified complications of , antepartum condition or complication] Episodic Other complications of (7 sources) ultrasound scan abnormal; Translations: [Abnormal ultrasonic finding on screening of mother] 03-10-2022 Episodic Other complications of (7 sources) Variable heart decelerations; Translations: [Maternal care for abnormalities of the heart rate or rhythm, unspecified trimester, not applicable or unspecified] 03-10-2022 Episodic Other complications of (20 sources) Maternal care for abnormalities of the heart rate or rhythm, unspecified trimester, not applicable or unspecified; Translations: [Abnormality in heart rate or rhythm, antepartum condition or complication] Episodic Other complications of (19 sources) Abnormal ultrasonic finding on screening of mother; Translations: [Abnormal finding on screening] Episodic Other complications of (2 sources) bradycardia affecting management of mother; Translations: [Maternal care for abnormalities of the heart rate or rhythm, unspecified trimester, not applicable or unspecified] 03-10-2022 Episodic Other endocrine disorders (3 sources) Other disorders of pituitary gland; Translations: [OTHER DISORDERS OF PITUITARY GLAND] Onset: 06-28-2021 Chronic Other nervous system disorders (1 source) Other specified disorders of brain; Translations: [OTHER SPECIFIED DISORDERS OF BRAIN] Onset: 05-25-2021 Chronic Other nutritional; endocrine; and metabolic disorders (1 source) Obesity, unspecified; Translations: [OBESITY UNSPECIFIED] Onset: 03-25-2021 Chronic Other nutritional; endocrine; and metabolic disorders (1 source) Body mass index (BMI) 33.0-33.9, adult; Translations: [BODY MASS INDEX BMI 33.0-33.9 ADULT] Onset: 03-25-2021 Chronic Other and delivery including normal (20 sources) ; Translations: [Normal ] 08-31-2021 Episodic Comment on above: [facility] Status documented as Yes on Admission Other skin disorders (3 sources) Nonscarring hair loss, unspecified; Translations: [NONSCARRING HAIR LOSS UNSPECIFIED] Onset: 03-03-2021 Episodic Other upper respiratory disease (10 sources) Deviated nasal septum; Translations: [Deviated nasal septum] 07-28-2021 Episodic Other upper respiratory infections (1 source) Acute pharyngitis, unspecified; Translations: [Acute pharyngitis, unspecified] Onset: 03-20-2025 Episodic Residual codes; unclassified (1 source) Pain, unspecified; Translations: [PAIN UNSPECIFIED] Onset: 06-30-2021 Episodic Residual codes; unclassified (10 sources) History of vaccination; Translations: [Personal history of other drug therapy] 11-12-2021 Episodic Residual codes; unclassified (10 sources) Genetic disorder carrier; Translations: [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 of other disease] 01-18-2022 Episodic Residual codes; unclassified (8 sources) Personal history of other drug therapy; Translations: [Personal history of other drug therapy] Episodic Residual codes; unclassified (20 sources) 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 of other disease; Translations: [Other genetic carrier status] Episodic Residual codes; unclassified (1 source) History of uterine scar from previous surgery; Translations: [Other postprocedural status] Episodic Residual codes; unclassified (2 sources) Past history of procedure; Translations: [Personal history of other medical treatment] 03-10-2022 Episodic Residual codes; unclassified (1 source) Personal history of other medical treatment; Translations: [Other specified personal history presenting hazards to health] Episodic Short gestation; low weight; and growth retardation (20 sources) Prematurity of infant; Translations: [ , unspecified weeks of gestation] Episodic Spondylosis; intervertebral disc disorders; other back problems (2 sources) Spondylosis without myelopathy or radiculopathy, cervical region; Translations: [Spondylosis without myelopathy or radiculopathy, lumbar region] Onset: 06-30-2021 Chronic Spondylosis; intervertebral disc disorders; other back problems (1 source) Neck pain 10-23-2023 Episodic Sprains and strains (2 sources) Strain of trapezius muscle 02-13-2019 Episodic Unclassified (1 source) Unknown / UNK(Unknown) Onset: 02-19-2018 Unclassified (2 sources) Patient encounter status 10-23-2023 Viral infection (20 sources) COVID-19; Translations: [Severe acute respiratory syndrome coronavirus 2 (SARS-CoV-2) detected] Episodic Past or Other Problems Problem Classification Problem Date Documented Da te Episodic/Chronic Other upper respiratory disease (2 sources) Other specified disorders of nose and nasal sinuses; Translations: [OTH SPEC D/O NOSE NASAL SINUSES] Onset: 03-25-2021 Episodic Other upper respiratory disease (1 source) Deviated nasal septum; Translations: [DEVIATED NASAL SEPTUM] Onset: 03-25-2021 Episodic Other upper respiratory disease (1 source) Hypertrophy of nasal turbinates; Translations: [HYPERTROPHY OF NASAL TURBINATES] Onset: 03-25-2021 Episodic Unclassified (1 source) FREQUENCY/PRESSURE, LOW BACK PAIN,ABDOMINAL CRAMPS Onset: 02-19-2018 Unclassified (20 sources) Transformed migraine; Translations: [Chronic migraine] Results Test Name Value Interpretation Reference Range Facility .Auto Diffon 05-19-2025 Basophil, Absolute 0.0 10 3/mcL Normal 0.0-0.3 [facility] Comment on above: Performed By: #### F ERR, FT3, CMP, ADIFF, FT4, TSH, CBC, ANEU, VIDH, FE, GFR #### [facility] [address] [place] [id number] Basophils/100 WBC (Bld) 0.3 % Normal 0.0-2.5 [facility] Comment on above: Performed By: #### F ERR, FT3, CMP, ADIFF, FT4, TSH, CBC, ANEU, VIDH, FE, GFR #### [address] [address] Eosinophil, Absolute 0.2 10 3/mcL Normal 0.0-0.7 [facility] Comment on above: Performed By: #### F ERR, FT3, CMP, ADIFF, FT4, TSH, CBC, ANEU, VIDH, FE, GFR #### [address] [address] Eosinophils/100 WBC (Bld) 3.7 % Normal 0.0-6.0 [facility] Comment on above: Performed By: #### F ERR, FT3, CMP, ADIFF, FT4, TSH, CBC, ANEU, VIDH, FE, GFR #### [address] [address] Lymphocyte, Absolute 2.0 10 3/mcL Normal 0.9-4.3 [facility] Comment on above: Performed By: #### F ERR, FT3, CMP, ADIFF, FT4, TSH, CBC, ANEU, VIDH, FE, GFR #### [address] [address] Lymphocytes/100 WBC (Bld) 34.9 % Normal 20.0-40.0 [facility] Comment on above: Performed By: #### F ERR, FT3, CMP, ADIFF, FT4, TSH, CBC, ANEU, VIDH, FE, GFR #### [address] [address] Monocyte, Absolute 0.3 10 3/mcL Normal 0.1-1.4 [facility] Comment on above: Performed By: #### F ERR, FT3, CMP, ADIFF, FT4, TSH, CBC, ANEU, VIDH, FE, GFR #### [address] [address] Monocytes/100 WBC (Bld) 5.5 % Normal 2.0-13.0 [facility] Comment on above: Performed By: #### F ERR, FT3, CMP, ADIFF, FT4, TSH, CBC, ANEU, VIDH, FE, GFR #### [address] [address] Neutrophils/100 WBC (Bld) 55.6 % Normal 50.0-75.0 [facility] Comment on above: Performed By: #### F ERR, FT3, CMP, ADIFF, FT4, TSH, CBC, ANEU, VIDH, FE, GFR #### [address] [address] .GFRon 05-19-2025 GFR/1.73 sq M.predicted among non-blacks MDRD (S/P/Bld) [Vol rate/Area] mL/min/{1.73_m2} Normal [facility] Comment on above: Result Comment: Stages of Chronic Kidney Disease (CKD) Stage Description eGFR(ml/min/1.73 sq.m.) CKD 1 Normal kidney function or >=90 normal kindney function with possible kidney damage (ex. Proteinuria) CKD 2 Kidney damage with mild loss 60-89 of kidney function CKD 3a Mild to moderate loss of kidney 45-59 function CKD 3b Moderate to severe loss of 30-44 of kindey function CKD 4 Severe loss of kidney function 15-29 CKD 5 Kidney failure <15 Note: (go live 2024) the eGFR calculation was updated to the 2020 CKD-EPI creatinine equation without a race factor to calculate the eGFR results. Performed By: #### F ERR, FT3, CMP, ADIFF, FT4, TSH, CBC, ANEU, VIDH, FE, GFR #### [address] [address] .NEUABSon 05-19-2025 Neutrophil, Absolute 3.2 10 3/mcL Normal 2.3-8.1 [facility] Comment on above: Performed By: #### F ERR, FT3, CMP, ADIFF, FT4, TSH, CBC, ANEU, VIDH, FE, GFR #### [address] [address] CBCon 05-19-2025 Erythrocyte distribution width (RBC) [Ratio] 14.0 % Normal 11.5-15.5 [facility] Comment on above: Performed By: #### F ERR, FT3, CMP, ADIFF, FT4, TSH, CBC, ANEU, VIDH, FE, GFR #### [place] [address] Hematocrit (Bld) [Volume fraction] 37.1 % Normal 34.0-46.0 [facility] Comment on above: Performed By: #### F ERR, FT3, CMP, ADIFF, FT4, TSH, CBC, ANEU, VIDH, FE, GFR #### [place] [address] Hgb 12.3 G/dL Normal 12.0-16.0 [facility] Comment on above: Performed By: #### F ERR, FT3, CMP, ADIFF, FT4, TSH, CBC, ANEU, VIDH, FE, GFR #### [place] [address] MCH (RBC) [Entitic mass] 26.4 pg Low 27.0-33.0 [facility] Comment on above: Performed By: #### F ERR, FT3, CMP, ADIFF, FT4, TSH, CBC, ANEU, VIDH, FE, GFR #### [place] [address] MCHC 33.2 G/dL Normal 32.0-36.0 [facility] Comment on above: Performed By: #### F ERR, FT3, CMP, ADIFF, FT4, TSH, CBC, ANEU, VIDH, FE, GFR #### [place] [address] MCV (RBC) [Entitic vol] 79.6 fL Low 80.0-99.0 [facility] Comment on above: Performed By: #### F ERR, FT3, CMP, ADIFF, FT4, TSH, CBC, ANEU, VIDH, FE, GFR #### [place] [address] Platelet 195 10 3/mcL Normal 150-450 [facility] Comment on above: Performed By: #### F ERR, FT3, CMP, ADIFF, FT4, TSH, CBC, ANEU, VIDH, FE, GFR #### [facility] [address] [place], [place] [address] Platelet mean volume (Bld) [Entitic vol] 10.3 fL Normal 6.6-10.5 [facility] Comment on above: Performed By: #### F ERR, FT3, CMP, ADIFF, FT4, TSH, CBC, ANEU, VIDH, FE, GFR #### [address] [address] RBC 4.65 10 6/mcL Normal 4.10-5.30 [facility] Comment on above: Performed By: #### F ERR, FT3, CMP, ADIFF, FT4, TSH, CBC, ANEU, VIDH, FE, GFR #### [address] [address] WBC 5.7 10 3/mcL Normal 4.5-10.8 [facility] Comment on above: Performed By: #### F ERR, FT3, CMP, ADIFF, FT4, TSH, CBC, ANEU, VIDH, FE, GFR #### [address] [address] CMPon 05-19-2025 Albumin Level 4.0 G/dL Normal 3.2-4.8 [facility] Comment on above: Performed By: #### F ERR, FT3, CMP, ADIFF, FT4, TSH, CBC, ANEU, VIDH, FE, GFR #### [address] [address] Albumin/Globulin [Mass ratio] 1.2 {ratio} Normal 0.9-1.6 [facility] Comment on above: Performed By: #### F ERR, FT3, CMP, ADIFF, FT4, TSH, CBC, ANEU, VIDH, FE, GFR #### [address] [address] ALP [Catalytic activity/Vol] 70 U/L Normal 38-126 [facility] Comment on above: Performed By: #### F ERR, FT3, CMP, ADIFF, FT4, TSH, CBC, ANEU, VIDH, FE, GFR #### [address] [address] ALT [Catalytic activity/Vol] 15 U/L Normal 10-49 [facility] Comment on above: Performed By: #### F ERR, FT3, CMP, ADIFF, FT4, TSH, CBC, ANEU, VIDH, FE, GFR #### [place] [id number] AST [Catalytic activity/Vol] 15 U/L Normal 8-34 [facility] Comment on above: Performed By: #### F ERR, FT3, CMP, ADIFF, FT4, TSH, CBC, ANEU, VIDH, FE, GFR #### [place] [id number] Bili Total 0.40 mg/dL Normal 0.20-1.20 [facility] Comment on above: Result Comment: Use of this assay is not recommended for patients undergoing treatment with eltrombopag due to the potential for falsely elevated results. Performed By: #### F ERR, FT3, CMP, ADIFF, FT4, TSH, CBC, ANEU, VIDH, FE, GFR #### [place] [id number] BUN/Creatinine Ratio 11.5 ratio Normal 10.0-22.0 [facility] Comment on above: Performed By: #### F ERR, FT3, CMP, ADIFF, FT4, TSH, CBC, ANEU, VIDH, FE, GFR #### [place] [id number] Calcium [Mass/Vol] 9.8 mg/dL Normal 8.7-10.4 [facility] Comment on above: Performed By: #### F ERR, FT3, CMP, ADIFF, FT4, TSH, CBC, ANEU, VIDH, FE, GFR #### [address] [address] Chloride [Moles/Vol] 105 mmol/L Normal 98-110 [facility] Comment on above: Performed By: #### F ERR, FT3, CMP, ADIFF, FT4, TSH, CBC, ANEU, VIDH, FE, GFR #### [place] [id number] CO2 [Moles/Vol] 27 mmol/L Normal 22-32 [facility] Comment on above: Performed By: #### F ERR, FT3, CMP, ADIFF, FT4, TSH, CBC, ANEU, VIDH, FE, GFR #### [address] [address] Creatinine [Mass/Vol] 0.61 mg/dL Normal 0.50-1.[address] [facility] Comment on above: Result Comment: Test ing performed on Gooddler analyzer using enzymatic creatinine methodology. Performed By: #### F ERR, FT3, CMP, ADIFF, FT4, TSH, CBC, ANEU, VIDH, FE, GFR #### [address] [address] Electrolyte Balance 9.0 mEq/L Normal 4.0-15.0 [facility] Comment on above: Performed By: #### F ERR, FT3, CMP, ADIFF, FT4, TSH, CBC, ANEU, VIDH, FE, GFR #### [place] [id number] Globulin 3.4 G/dL Normal 2.5-4.2 [facility] Comment on above: Performed By: #### F ERR, FT3, CMP, ADIFF, FT4, TSH, CBC, ANEU, VIDH, FE, GFR #### [address] [address] Glucose [Mass/Vol] 91 mg/dL Normal 70-110 [facility] Comment on above: Performed By: #### F ERR, FT3, CMP, ADIFF, FT4, TSH, CBC, ANEU, VIDH, FE, GFR #### [address] [address] Potassium [Moles/Vol] 4.2 mmol/L Normal 3.5-5.[address] [facility] Comment on above: Performed By: #### F ERR, FT3, CMP, ADIFF, FT4, TSH, CBC, ANEU, VIDH, FE, GFR #### [address] [address] Sodium [Moles/Vol] 141 mmol/L Normal 136-145 [facility] Comment on above: Performed By: #### F ERR, FT3, CMP, ADIFF, FT4, TSH, CBC, ANEU, VIDH, FE, GFR #### [place] [id number] Total Protein 7.4 G/dL Normal 5.7-8.2 [facility] Comment on above: Performed By: #### F ERR, FT3, CMP, ADIFF, FT4, TSH, CBC, ANEU, VIDH, FE, GFR #### [place] [address] Urea nitrogen [Mass/Vol] 7.0 mg/dL Low 8.0-22.0 [facility] Comment on above: Performed By: #### F ERR, FT3, CMP, ADIFF, FT4, TSH, CBC, ANEU, VIDH, FE, GFR #### [place] [address] FEon 05-19-2025 Iron [Mass/Vol] 37 ug/dL Low 50-170 [facility] Comment on above: Performed By: #### F ERR, FT3, CMP, ADIFF, FT4, TSH, CBC, ANEU, VIDH, FE, GFR #### [place] [id number] Ortiz 05-19-2025 Ferritin [Mass/Vol] 15.8 ng/mL Normal 8.0-252.0 [facility] Comment on above: Performed By: #### F ERR, FT3, CMP, ADIFF, FT4, TSH, CBC, ANEU, VIDH, FE, GFR #### [place] [address] FT3on 05-19-2025 Free T3 [Mass/Vol] 3.71 pg/mL Normal 2.30-4.20 [facility] Comment on above: Performed By: #### F ERR, FT3, CMP, ADIFF, FT4, TSH, CBC, ANEU, VIDH, FE, GFR #### [place] [address] FT4on 05-19-2025 Free T4 [Mass/Vol] 1.32 ng/dL Normal 0.89-1.76 [facility] Comment on above: Result Comment: No te - New Reference Range in effect 20 Performed By: #### F ERR, FT3, CMP, ADIFF, FT4, TSH, CBC, ANEU, VIDH, FE, GFR #### [address] [address] TSHon 05-19-2025 TSH 1.748 mIU/mL Normal 0.550-4.780 [facility] Comment on above: Performed By: #### F ERR, FT3, CMP, ADIFF, FT4, TSH, CBC, ANEU, VIDH, FE, GFR #### [address] [address] VIDHon 05-19-2025 Vit. D 25-Hydroxy 23.0 ng/mL Normal [facility] Comment on above: Result Comment: Inte rpretive Values Based on Total 25(OH)D: Severe Deficiency <20 ng/mL Mild to Moderate Deficiency 20-30 ng/mL Optimum Levels 30-100 ng/mL Toxicity Possible >100 ng/mL Performed By: #### F ERR, FT3, CMP, ADIFF, FT4, TSH, CBC, ANEU, VIDH, FE, GFR #### [place] [id number] Client Service Administrator Office Visit Reporton 07-01-2024 Client Service Administrator Office Visit Report [facility] [address], [address] [place] [address] OFFICE VISIT Date of Service: 07/01/24 MR#: [id number] Acct: [id number] Name: ABDULLAHI BEAL Rep #: [id number] : 1995 Provider: Dr. 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 Is patient in pain?: No Allergies bupropion (From Wellbutrin) Allergy (Severe, Verified 07/01/24 09:16) Other Medications ???Medication ???Instructions ???Recorded ???Confirmed ???Type cholecalciferol (vitamin D3) 50 50 mcg PO DAILY 11/20/23 07/01/24 History mcg (2,000 unit) capsule docosahexaenoic acid 200 mg mg PO 11/20/23 07/01/24 History capsule ( DHA) amoxicillin 875 mg tablet 875 mg PO BID 07/01/24 07/01/24 History Post menopausal: No Patient : No : No [facility] Medical History depression Anemia Trauma Depression Gestational HTN Gestational diabetes Marginal placenta Lab test positive for detection of COVID-19 virus HPV test positive ASCUS with positive high risk HPV COVID-19 vaccine series completed Depression Deviated septum Chronic migraine Surgical History Status post delivery H/O wisdom tooth extraction H/O foot surgery H/O adenoidectomy Family History Father CVA (cerebral vascular accident) Mother Hypertension Ovarian cyst IBS (irritable bowel syndrome) Migraines Grandmother Cancer Lung Social History household members: spouse housing: house current occupational status: employed pets and animals: Yes Smoking Status: Never smoker second hand exposure: No alcohol intake: current alcohol intake frequency: a few times a week substance use type: does not use caffeine: Yes what type of physical activity do you participate in: walking and aerobics frequency: 1-2 times per week seatbelt use: always do you feel safe at home: Yes 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 Date Name GA/Weeks Outcome Route Bth Weight Gen Labor Lgth Anesthesia Del Locatn Provider FOB 03/06/22 Aida 38 live - full term 6lbs 7oz Female [facility] Pati Romano HPI Encounter for routine gynecological examination Details: ABDULLAHI BEAL is a 29 year old who presents for annual exam. 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 still needs follow up for abnormal semen analysis she has some mild symptoms of pcos including facial and chest hair. periods are regular though Female Reproductive History Cycle Length: 21-35 Bleeding Duration: 5 Questions: metorrhagia: No, sexually active: Yes, dyspareunia: No and PCB: No Menopausal Symptoms: No hot flashes, No night sweats, No weight change, No mood changes, No difficulty concentrating, No sleep problems and No change in libido ROS Const Constitutional: Reports as per HPI; Denies fatigue, increased appetite, poor appetite, night sweats, weight gain or weight loss Cardio Card: Denies chest pain Resp Resp: Denies cough or dyspnea GI GI: Reports as per HPI; Denies abdominal pain, bloating, constipation, nausea or vomiting : Reports as per HPI and other; Denies difficulty voiding, dysuria, hematuria, hot flashes, nipple discharge, pelvic pain, prolapse symptoms, urinary frequency, urinary incontinence, urinary urgency, vaginal discharge, vaginal dryness, vaginal odor or vaginal pruritus Skin Skin/Breast: Denies changing lesions, breast mass, breast pain, breast skin changes or nipple discharge Psych Psych: Denies anxiety, change in libido, depression or difficulty concentrating Exam Const General: cooperative, healthy appearing, comfortable, no acute distress, well developed and well groomed [facility] Head: normal to inspection and normocephalic Ears: hearing grossly normal bilaterally and external ears normal Nose: external nose normal Face and sinus: normal facial exam Neck Neck: normal visual inspection, full ROM and no lymphadeno (more content not included)... Normal [facility] .Auto Diffon 06-29-2024 Basophil, Absolute 0.0 10 3/mcL Normal 0.0-0.3 [facility] Comment on above: Performed By: #### A DIFF, FERR, CMP, GFR, A1C, VIDH, LIPID, TSH, FE, ANEU, CBC #### [address] [address] Basophils/100 WBC (Bld) 0.3 % Normal 0.0-2.5 [facility] Comment on above: Performed By: #### A DIFF, FERR, CMP, GFR, A1C, VIDH, LIPID, TSH, FE, ANEU, CBC #### [address] [address] Eosinophil, Absolute 0.1 10 3/mcL Normal 0.0-0.7 [facility] Comment on above: Performed By: #### A DIFF, FERR, CMP, GFR, A1C, VIDH, LIPID, TSH, FE, ANEU, CBC #### [address] [address] Eosinophils/100 WBC (Bld) 1.6 % Normal 0.0-6.0 [facility] Comment on above: Performed By: #### A DIFF, FERR, CMP, GFR, A1C, VIDH, LIPID, TSH, FE, ANEU, CBC #### [address] [address] Lymphocyte, Absolute 2.4 10 3/mcL Normal 0.9-4.3 [facility] Comment on above: Performed By: #### A DIFF, FERR, CMP, GFR, A1C, VIDH, LIPID, TSH, FE, ANEU, CBC #### [address] [address] Lymphocytes/100 WBC (Bld) 34.4 % Normal 20.0-40.0 [facility] Comment on above: Performed By: #### A DIFF, FERR, CMP, GFR, A1C, VIDH, LIPID, TSH, FE, ANEU, CBC #### [address] [address] Monocyte, Absolute 0.3 10 3/mcL Normal 0.1-1.4 [facility] Comment on above: Performed By: #### A DIFF, FERR, CMP, GFR, A1C, VIDH, LIPID, TSH, FE, ANEU, CBC #### [address] [address] Monocytes/100 WBC (Bld) 4.8 % Normal 2.0-13.0 [facility] Comment on above: Performed By: #### A DIFF, FERR, CMP, GFR, A1C, VIDH, LIPID, TSH, FE, ANEU, CBC #### [address] [address] Neutrophils/100 WBC (Bld) 58.9 % Normal 50.0-75.0 [facility] Comment on above: Performed By: #### A DIFF, FERR, CMP, GFR, A1C, VIDH, LIPID, TSH, FE, ANEU, CBC #### [address] [address] .GFRon 06-29-2024 GFR Non- >60 Normal [facility] Comment on above: Result Comment: GFR Population mean for , Non- Americans Ages 20-29 = 116 mL/min/1.73 sq.m. Ages 30-39 = 107 mL/min/1.73 sq.m. Ages 40-49 = 99 mL/min/1.73 sq.m. Ages 50-59 = 93 mL/min/1.73 sq.m. Ages 60-69 = 85 mL/min/1.73 sq.m. Ages 70+ = 75 mL/min/1.73 sq.m. Chronic Kidney Disease: Less than 60 mL/min/1.73 square meters End Stage Renal Disease: Less than 15 mL/min/1.73 square meters Performed By: #### A DIFF, FERR, CMP, GFR, A1C, VIDH, LIPID, TSH, FE, ANEU, CBC #### [address] [address] GFR >60 Normal [facility] Comment on above: Result Comment: GFR Population mean for , Non- Americans Ages 20-29 = 116 mL/min/1.73 sq.m. Ages 30-39 = 107 mL/min/1.73 sq.m. Ages 40-49 = 99 mL/min/1.73 sq.m. Ages 50-59 = 93 mL/min/1.73 sq.m. Ages 60-69 = 85 mL/min/1.73 sq.m. Ages 70+ = 75 mL/min/1.73 sq.m. Chronic Kidney Disease: Less than 60 mL/min/1.73 square meters End Stage Renal Disease: Less than 15 mL/min/1.73 square meters Performed By: #### A DIFF, FERR, CMP, GFR, A1C, VIDH, LIPID, TSH, FE, ANEU, CBC #### [address] [address] .NEUABSon 06-29-2024 Neutrophil, Absolute 4.1 10 3/mcL Normal 2.3-8.1 [facility] Comment on above: Performed By: #### A DIFF, FERR, CMP, GFR, A1C, VIDH, LIPID, TSH, FE, ANEU, CBC #### [place] [address] A1Con 06-29-2024 Glucose [Mass/Vol] 111 mg/dL Normal [facility] Comment on above: Result Comment: Flower mated Average Glucose calculated by equation ((28.7xA1C)-46.7) Estimated average glucose (eAG) is a calculated value from Hemoglobin A1C and is loss prevention representative of the average blood glucose level in the last 2-3 month period. Normal range: less than 114 mg/dL Performed By: #### A DIFF, FERR, CMP, GFR, A1C, VIDH, LIPID, TSH, FE, ANEU, CBC #### [place] [address] HbA1c (Bld) [Mass fraction] 5.5 % Normal 4.0-6.0 [facility] Comment on above: Performed By: #### A DIFF, FERR, CMP, GFR, A1C, VIDH, LIPID, TSH, FE, ANEU, CBC #### [place] [id number] CBCon 06-29-2024 Erythrocyte distribution width (RBC) [Ratio] 13.7 % Normal 11.5-15.5 [facility] Comment on above: Performed By: #### A DIFF, FERR, CMP, GFR, A1C, VIDH, LIPID, TSH, FE, ANEU, CBC #### [place] [address] Hematocrit (Bld) [Volume fraction] 39.4 % Normal 34.0-46.0 [facility] Comment on above: Performed By: #### A DIFF, FERR, CMP, GFR, A1C, VIDH, LIPID, TSH, FE, ANEU, CBC #### [place] [address] Hgb 13.1 G/dL Normal 12.0-16.0 [facility] Comment on above: Performed By: #### A DIFF, FERR, CMP, GFR, A1C, VIDH, LIPID, TSH, FE, ANEU, CBC #### [place] [address] MCH (RBC) [Entitic mass] 26.4 pg Low 27.0-33.0 [facility] Comment on above: Performed By: #### A DIFF, FERR, CMP, GFR, A1C, VIDH, LIPID, TSH, FE, ANEU, CBC #### [place] [address] MCHC 33.1 G/dL Normal 32.0-36.0 [facility] Comment on above: Performed By: #### A DIFF, FERR, CMP, GFR, A1C, VIDH, LIPID, TSH, FE, ANEU, CBC #### [place] [address] MCV (RBC) [Entitic vol] 79.9 fL Low 80.0-99.0 [facility] Comment on above: Performed By: #### A DIFF, FERR, CMP, GFR, A1C, VIDH, LIPID, TSH, FE, ANEU, CBC #### [place] [address] Platelet 194 10 3/mcL Normal 150-450 [facility] Comment on above: Performed By: #### A DIFF, FERR, CMP, GFR, A1C, VIDH, LIPID, TSH, FE, ANEU, CBC #### [place] [address] Platelet mean volume (Bld) [Entitic vol] 9.9 fL Normal 6.6-10.5 [facility] Comment on above: Performed By: #### A DIFF, FERR, CMP, GFR, A1C, VIDH, LIPID, TSH, FE, ANEU, CBC #### [facility] [address] [place], [place] [address] RBC 4.94 10 6/mcL Normal 4.10-5.30 [facility] Comment on above: Performed By: #### A DIFF, FERR, CMP, GFR, A1C, VIDH, LIPID, TSH, FE, ANEU, CBC #### [place] [address] WBC 7.0 10 3/mcL Normal 4.5-10.8 [facility] Comment on above: Performed By: #### A DIFF, FERR, CMP, GFR, A1C, VIDH, LIPID, TSH, FE, ANEU, CBC #### [address] [address] CMPon 06-29-2024 Albumin Level 3.7 G/dL Normal 3.2-4.8 [facility] Comment on above: Performed By: #### A DIFF, FERR, CMP, GFR, A1C, VIDH, LIPID, TSH, FE, ANEU, CBC #### [place] [address] Albumin/Globulin [Mass ratio] 1.1 {ratio} Normal 0.9-1.6 [facility] Comment on above: Performed By: #### A DIFF, FERR, CMP, GFR, A1C, VIDH, LIPID, TSH, FE, ANEU, CBC #### [address] [address] ALP [Catalytic activity/Vol] 83 U/L Normal 38-126 [facility] Comment on above: Performed By: #### A DIFF, FERR, CMP, GFR, A1C, VIDH, LIPID, TSH, FE, ANEU, CBC #### [address] [address] ALT [Catalytic activity/Vol] 16 U/L Normal 10-49 [facility] Comment on above: Performed By: #### A DIFF, FERR, CMP, GFR, A1C, VIDH, LIPID, TSH, FE, ANEU, CBC #### [address] [address] AST [Catalytic activity/Vol] 14 U/L Normal 8-34 [facility] Comment on above: Performed By: #### A DIFF, FERR, CMP, GFR, A1C, VIDH, LIPID, TSH, FE, ANEU, CBC #### [address] [address] Bili Total 0.30 mg/dL Normal 0.20-1.20 [facility] Comment on above: Result Comment: Use of this assay is not recommended for patients undergoing treatment with eltrombopag due to the potential for falsely elevated results. Performed By: #### A DIFF, FERR, CMP, GFR, A1C, VIDH, LIPID, TSH, FE, ANEU, CBC #### [address] [address] BUN/Creatinine Ratio 16.4 ratio Normal 10.0-22.0 [facility] Comment on above: Performed By: #### A DIFF, FERR, CMP, GFR, A1C, VIDH, LIPID, TSH, FE, ANEU, CBC #### [place] [id number] Calcium [Mass/Vol] 9.4 mg/dL Normal 8.7-10.4 [facility] Comment on above: Performed By: #### A DIFF, FERR, CMP, GFR, A1C, VIDH, LIPID, TSH, FE, ANEU, CBC #### [address] [address] Chloride [Moles/Vol] 106 mmol/L Normal 98-110 [facility] Comment on above: Performed By: #### A DIFF, FERR, CMP, GFR, A1C, VIDH, LIPID, TSH, FE, ANEU, CBC #### [address] [address] CO2 [Moles/Vol] 30 mmol/L Normal 22-32 [facility] Comment on above: Performed By: #### A DIFF, FERR, CMP, GFR, A1C, VIDH, LIPID, TSH, FE, ANEU, CBC #### [address] [address] Creatinine [Mass/Vol] 0.67 mg/dL Normal 0.50-1.20 [facility] Comment on above: Result Comment: Test ing performed on Gooddler analyzer using enzymatic creatinine methodology. Performed By: #### A DIFF, FERR, CMP, GFR, A1C, VIDH, LIPID, TSH, FE, ANEU, CBC #### [address] [address] Electrolyte Balance 2.0 mEq/L Low 4.0-15.0 [facility] Comment on above: Performed By: #### A DIFF, FERR, CMP, GFR, A1C, VIDH, LIPID, TSH, FE, ANEU, CBC #### [address] [address] Globulin 3.3 G/dL Normal 1.5-3.8 [facility] Comment on above: Performed By: #### A DIFF, FERR, CMP, GFR, A1C, VIDH, LIPID, TSH, FE, ANEU, CBC #### [address] [address] Glucose [Mass/Vol] 95 mg/dL Normal 70-110 [facility] Comment on above: Performed By: #### A DIFF, FERR, CMP, GFR, A1C, VIDH, LIPID, TSH, FE, ANEU, CBC #### [address] [address] Potassium [Moles/Vol] 4.2 mmol/L Normal 3.5-5.0 [facility] Comment on above: Performed By: #### A DIFF, FERR, CMP, GFR, A1C, VIDH, LIPID, TSH, FE, ANEU, CBC #### [address] [address] Sodium [Moles/Vol] 138 mmol/L Normal 136-145 [facility] Comment on above: Performed By: #### A DIFF, FERR, CMP, GFR, A1C, VIDH, LIPID, TSH, FE, ANEU, CBC #### [address] [address] Total Protein 7.0 G/dL Normal 5.7-8.2 JINNY MASSILLON Comment on above: Performed By: #### A DIFF, FERR, CMP, GFR, A1C, VIDH, LIPID, TSH, FE, ANEU, CBC #### [address] [address] Urea nitrogen [Mass/Vol] 11.0 mg/dL Normal 8.0-22.0 JINNY MASSILLON Comment on above: Performed By: #### A DIFF, FERR, CMP, GFR, A1C, VIDH, LIPID, TSH, FE, ANEU, CBC #### [address] [address] FEon 06-29-2024 Iron [Mass/Vol] 33 ug/dL Low 50-170 JINNY MASSILLON Comment on above: Performed By: #### A DIFF, FERR, CMP, GFR, A1C, VIDH, LIPID, TSH, FE, ANEU, CBC #### [address] [address] [place] 06-29-2024 Ferritin [Mass/Vol] 13.6 ng/mL Normal 8.0-252.0 AULTM AN MASSILLON Comment on above: Performed By: #### A DIFF, FERR, CMP, GFR, A1C, VIDH, LIPID, TSH, FE, ANEU, CBC #### [address] [address] LIPIDon 06-29-2024 Cholesterol [Mass/Vol] 121 mg/dL Normal 50-199 JINNY MASSILLON Comment on above: Result Comment: Chol esterol Reference Interval: Less than 200 Desirable 200-239 Borderline high risk 240 and above High risk Performed By: #### A DIFF, FERR, CMP, GFR, A1C, VIDH, LIPID, TSH, FE, ANEU, CBC #### [address] [address] Cholesterol in HDL [Mass/Vol] 45 mg/dL Normal 40-59 JINNY MASSILLON Comment on above: Performed By: #### A DIFF, FERR, CMP, GFR, A1C, VIDH, LIPID, TSH, FE, ANEU, CBC #### [address] [address] Cholesterol in LDL [Mass/Vol] 64 mg/dL Normal 0-129 JINNY MASSILLON Comment on above: Performed By: #### A DIFF, FERR, CMP, GFR, A1C, VIDH, LIPID, TSH, FE, ANEU, CBC #### [address] [address] Triglyceride [Mass/Vol] 62 mg/dL Normal 3-149 [facility] Comment on above: Performed By: #### A DIFF, FERR, CMP, GFR, A1C, VIDH, LIPID, TSH, FE, ANEU, CBC #### [address] [address] TSHon 06-29-2024 TSH 3.382 mIU/mL Normal 0.550-4.780 [facility] Comment on above: Performed By: #### A DIFF, FERR, CMP, GFR, A1C, VIDH, LIPID, TSH, FE, ANEU, CBC #### [address] [address] VIDHon 06-29-2024 Vit. D 25-Hydroxy 13.4 ng/mL Normal [facility] Comment on above: Result Comment: Inte rpretive Values Based on Total 25(OH)D: Severe Deficiency <20 ng/mL Mild to Moderate Deficiency 20-30 ng/mL Optimum Levels 30-100 ng/mL Toxicity Possible >100 ng/mL Performed By: #### A DIFF, FERR, CMP, GFR, A1C, VIDH, LIPID, TSH, FE, ANEU, CBC #### [place] [id number] Pelvis W/WO Contraston 06-03 Pelvis W/WO Contrast [facility] Imaging Services [address] [place], [place] [address] Pelvis W/WO Contrast MR#: [id number] Acct: [id number] Name: ABDULLAHI BEAL Rep #: [id number] : 1995 F 29 From: Yves Malone PCP: Care Physician,No Primary Status: REG CLI Study: Pelvis W/WO Contrast Date of Exam: 06/03/24 Exam# [id number] Ordering Dr: Amie Martin DO [id number] EXAM: MR PELVIS WITHOUT AND WITH INTRAVENOUS CONTRAST CLINICAL INDICATION: Bicornuate uterus, infertility TECHNIQUE: Multiplanar and multisequence MR images of the pelvis without and with intravenous contrast. CONTRAST: 17 cc of Clariscan IV. COMPARISON: Pelvic ultrasound 12/25/2023. FINDINGS: APPENDIX: No evidence of acute appendicitis. INTRAPERITONEAL SPACE: Unremarkable. No ascites or other fluid collection. BLADDER: Unremarkable. OVARIES: Multiple ovarian follicles bilaterally. UTERUS/CERVIX: Mild arcuate configuration to the uterus. Nabothian cysts in the cervix. Endometrial stripe is normal in thickness and appearance. BONES/JOINTS: Unremarkable. No suspicious lytic or blastic abnormality. SOFT TISSUES: Unremarkable. No pelvic wall hernia. LYMPH NODES: Unremarkable. No enlarged lymph nodes. MRI/Pelvis W/WO Contrast IMPRESSION: 1. Mild arcuate configuration to the uterus. No bicornuate uterus. 2. Nabothian cysts in the cervix. 3. Multiple ovarian follicles bilaterally. Consider polycystic ovary disease. Electronically Signed: Yves Bryant MD at 7:51 EDT , CC: Dr. Amie Martin DO; No Primary Care Physician Assembler Convertible Top: Signed Normal [facility] Client Service Administrator Office Visit Reporton 03-18-2024 Client Service Administrator Office Visit Report [facility] [address] [place] [address]. [address] [place] [address] OFFICE VISIT Date of Service: 03/18/24 MR#: [id number] Acct: [id number] Name: ABDULLAHI BEAL Rep #: [id number] : 1995 Provider: Dr. Amie Dubose DO Age/Sex: 29/F Location: [facility] Status: Signed Intake Vital Signs 11/20/23 08:06 03/18/24 08:56 03/18/24 08:58 Height 5 ft 3 in 5 ft 3 in 5 ft 3 in Weight: 194 lb 2 oz BMI 34.4 BP 136/91 H Intake Visit Reasons: discuss heart shaped uterus Crozer Operator Required: No Is patient in pain?: No Allergies bupropion (From Wellbutrin) Allergy (Severe, Verified 03/18/24 08:56) Other Medications ???Medication ???Instructions ???Recorded ???Confirmed ???Type cholecalciferol (vitamin D3) 50 50 mcg PO DAILY 11/20/23 03/18/24 History mcg (2,000 unit) capsule docosahexaenoic acid 200 mg mg PO 11/20/23 03/18/24 History capsule ( DHA) diclofenac sodium 100 mg 100 mg PO DAILY 03/18/24 03/18/24 History tablet,extended release 24 hr Post menopausal: No Patient : No : No PFSH Medical History depression Anemia Trauma Depression Gestational HTN Gestational diabetes Marginal placenta Lab test positive for detection of COVID-19 virus HPV test positive ASCUS with positive high risk HPV COVID-19 vaccine series completed Depression Deviated septum Chronic migraine Surgical History Status post delivery H/O wisdom tooth extraction H/O foot surgery H/O adenoidectomy Family History Father CVA (cerebral vascular accident) Mother Hypertension Ovarian cyst IBS (irritable bowel syndrome) Migraines Grandmother Cancer Lung Social History household members: spouse housing: house current occupational status: employed pets and animals: Yes Smoking Status: Never smoker second hand exposure: No alcohol intake: current alcohol intake frequency: a few times a week substance use type: does not use caffeine: Yes what type of physical activity do you participate in: walking and aerobics frequency: 1-2 times per week seatbelt use: always do you feel safe at home: Yes 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 history: - Juan Antonio ([employer]) HPI discuss heart shaped uterus Details: ABDULLAHI BEAL is a 29 year old who presents for discussion about infertility. Her baby is 2 now and they have been trying x 1 year. SHe had a section for breech/bicornuate uterus. All labs are normal. ultrasound confirms the bicornuate shape. Her 's semen analysis showed a low sperm count but she was told by a nurse that it was no big deal History 1 Elective abortions Hx Para 1 Spontaneous abortions Hx # Term Pregnancies Ectopic pregnancies Hx # Pregnancies Multiple births # of living children 1 Past Pregnancies Del. Date Name GA/Weeks Outcome Route Bth Weight Infant Gen Labor Lgth Anesthesia Del Locatn Provider FOB 03/06/22 Aida 38 live - full term 6lbs 7oz Female [facility] Pati Romano ROS Const ROS Unobtainable: All systems reviewed are unremarkable except as noted in H Resp Resp: Reports system reviewed and no additional complaints, except as documented; Denies cough GI GI: Reports as per HPI Psych Psych: Reports system reviewed and no additional complaints, except as documented Exam Const General: cooperative, healthy appearing, comfortable and no acute distress Resp Effort Inspection: normal respiratory effort Skin General: no rashes or lesions noted Psych Appearance: grossly normal Speech and Movement: speech and movement normal Coding Level of Care Code Off vis,est,level 3 Diagnoses 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 Recommend that her sees urology and repeat the semen analysis. They may be a candidate for IUI as we discussed. 03/18/24930 Date Amie Pati Isbell Signature: Date (if applicable) CC: Normal [facility] Pelvic w/ Transvaginalon Pelvic w/ Transvaginal [facility] Imaging Services [address] [place] [address] Pelvic w/ Transvaginal MR#: [id number] Acct: [id number] Name: ABDULLAHI BEAL Rep #: [id number] : 1995 F 28 From: Gopi Lopez MD PCP: Care Physician,No Primary Status: REG CLI Study: Pelvic w/ Transvaginal Date of Exam: 12/25/23 Exam# [id number] Ordering Dr: Amie Martin DO [id number] STUDY: ULTRASOUND OF THE FEMALE PELVIS - COMPLETE REASON FOR EXAM: Female, 28 years old. infertility LMP: 12/09/2023 TECHNIQUE: Transabdominal and Transvaginal TECHNICAL QUALITY: Adequate. COMPARISON: None. FINDINGS: The uterus is anteverted and is in a midline position. The uterus measures 7.2 x 5.6 x 4.2 cm. There is a Nabothian cyst of the cervix. The endometrium measures 8 mm in thickness, and is hyperechoic. There is no demonstrated endometrial mass. Transverse image of the fundus the uterus demonstrates separation of the endometrium with intervening myometrium suggestive of a bicornuate uterus. There is no demonstrated myometrial mass. I.U.D. - The patient does not have an I.U.D. The right ovary is visualized. The right ovary measures 3.3 x 2.1 x 1.7 cm. There is no right ovarian cyst or ovarian mass. There is no visualized right adnexal mass or complex lesion. There is normal arterial and normal venous vascularity. The left ovary is visualized. The left ovary measures 2.5 x 1.5 x 1.4 cm. There is no left ovarian cyst or ovarian mass. There is no visualized left adnexal mass or complex lesion. There is normal arterial and normal venous vascularity. There is minimal fluid in the cul-de-sac. The pre void volume of the bladder was 16 ml. The post void volume of the bladder was ml. Polycystic ovary disease: No. 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 Pelvic MRI may be useful. Electronically Signed: Gopi Lopez MD at 21:59 EDT , CC: Dr. Aime Martin, DO; No Primary Care Physician Assembler Convertible Top: Signed Normal [facility] Progesterone Levelon 024 Progesterone 10.93 ng/mL Normal See Comment [facility] Comment on above: Result Comment: Prog esterone Reference Table: UNITS Female: Follicular 0.15 - 1.40 ng/mL Luteal 3.34 - 25.56 ng/mL Mid-luteal 4.44 - 28.03 ng/mL Postmenopausal 0.0 - 0.73 ng/mL : 1st Trimester 11.22 - 90.00 ng/mL 2nd Trimester 25.55 - 89.40 ng/mL 3rd Trimester 48.40 -422.50 ng/mL Performed By: #### L 3300.1750, L3100.5420, L509.4008 #### [facility] [address] [place], [address] Estradiolon 12-02-2023 ESTRADIOL 148.2 pg/mL Normal [facility] Comment on above: Result Comment: NORM AL REFERENCE RANGES FEMALE FOLLICULAR 21.4 - 164.8 pg/mL MID-CYCLE PEAK 49.9 - 367.2 pg/mL LUTEAL 40.2 - 259.0 pg/mL POST-MENOPAUSAL ON MHT <11.0 - 462.1 pg/mL NOT ON MHT <11.0 - 58.3 pg/mL MALE <11.0 - 52.5 pg/mL NOTE: [facility] HAS CONFIRMED THE DRUG FULVETRANT (FASLODEX) MAY CAUSE FALSELY ELEVATED ESTRADIOL RESULTS WHEN USING THIS TEST METHOD. IF PATIENT IS TAKING FULVESTRANT AN ALTERNATIVE METHOD SHOULD BE USED TO DETERMINE ESTRADIOL CONCENTRATION. Performed By: #### L 3300.1750, L3100.5420, L509.4001 #### [facility] [address] [place], [place], [id number] No Panel InformationOrdered By: Amie Dave on 12-02-2023 Estradiol (E2) Level 148.2 pg/mL [facility] Comment on above: NORMAL REFERENCE RAN [facility] [place] FEMALE FOLLICULAR 21.4 - 164.8 pg/mL MID-CYCLE PEAK 49.9 - 367.2 pg/mL LUTEAL 40.2 - 259.0 pg/mL POST-MENOPAUSAL ON MHT <11.0 - 462.1 pg/mL NOT ON MHT <11.0 - 58.3 pg/mL MALE <11.0 - 52.5 pg/mL NOTE:[employer] HAS CONFIRMED THE DRUG FULVETRANT (FASLODEX) MAY CAUSE FALSELY ELEVATED ESTRADIOL RESULTS WHEN USING THIS TEST METHOD. IF PATIENT IS TAKING FULVESTRANT AN ALTERNATIVE METHOD SHOULD BE USED TO DETERMINE ESTRADIOL CONCENTRATION. Prolactin 5.7 ng/mL [facility] Comment on above: NORMAL REFERENCE RAN [facility] [place] FEMALE NON- 2.2 - 30.3 ng/mL 8.1 - 347.6 ng/mL POST-MENOPAUSAL 0.7 - 31.5 ng/mL MALE 2.5 - 17.4 ng/mL Prolactinon 12-02-2023 PROLACTIN 5.7 ng/mL Normal [facility] Comment on above: Result Comment: NORMAL REFERENCE RANGES FEMALE NON- 2.2 - 30.3 ng/mL 8.1 - 347.6 ng/mL POST-MENOPAUSAL 0.7 - 31.5 ng/mL MALE 2.5 - 17.4 ng/mL Performed By: #### L 3300.1750, L3100.5420, L509.4001 #### [facility] [address] [place], [address] Serum or plasma progesterone measurement (mass/volume)Ordered By: Amie Dave on 12-02-2023 Progesterone [Mass/Vol] 10.93 ng/mL See Comment [facility] Comment on above: Progesterone Referen ce Table: UNITS Female: Follicular 0.15 - 1.40 ng/mL Luteal 3.34 - 25.56 ng/mL Mid-luteal 4.44 - 28.03 ng/mL Postmenopausal 0.0 - 0.73 ng/mL : 1st Trimester 11.22 - 90.00 ng/mL 2nd Trimester 25.55 - 89.40 ng/mL 3rd Trimester 48.40 -422.50 ng/mL Client Service Administrator Office Visit Reporton 11-20-2023 Client Service Administrator Office Visit Report [facility] [address] [place] [address] OFFICE VISIT Date of Service: 11/20/23 MR#: [id number] Acct: [id number] Name: ABDULLAHI BEAL Rep #: [id number] : 1995 Provider: Dr. Amie Dubose DO Age/Sex: 28/F Location: [facility] Status: Signed Intake Vital Signs 06/16/23 13:52 11/20/23 08:04 11/20/23 08:06 Height 5 ft 3 in 5 ft 3 in 5 ft 3 in Weight: 189 lb BMI 33.5 BP 132/88 H Intake Visit Reasons: Fertility consult Crozer Operator Required: No Is patient in pain?: No Allergies bupropion [From Wellbutrin] Allergy (Severe, Verified 11/20/23 08:03) Other Medications cholecalciferol (vitamin D3) 50 mcg (2,000 unit) capsule 50 mcg PO DAILY 11/20/23 [History Confirmed 11/20/23] docosahexaenoic acid 200 mg capsule ( DHA) mg PO 11/20/23 [History Confirmed 11/20/23] Post menopausal: No Patient : No : No PFSH Medical History Anemia ASCUS with positive high risk HPV Chronic migraine COVID-19 vaccine series completed Depression Depression Deviated septum Gestational diabetes Gestational HTN HPV test positive Lab test positive for detection of COVID-19 virus Marginal placenta depression Trauma Surgical History H/O adenoidectomy H/O foot surgery H/O wisdom tooth extraction Status post delivery Family History Father CVA (cerebral vascular accident) Mother Hypertension Ovarian cyst IBS (irritable bowel syndrome) Migraines Grandmother Cancer Lung Social History (Updated 11/20/23 @ 08:11 by Nicole Corley) household members: spouse housing: house current occupational status: employed pets and animals: Yes Smoking Status: Never smoker second hand exposure: No alcohol intake: current alcohol intake frequency: a few times a week substance use type: does not use caffeine: Yes what type of physical activity do you participate in: walking and aerobics frequency: 1-2 times per week seatbelt use: always do you feel safe at home: Yes 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 history: - Juan Antonio ([employer]) HPI Fertility consult Details: ABDULLAHI BEAL is a 28 year old who presents for infertility work up. They have baby Aida at home that we delivered back in February of 2022 via section. She has a known arcuate uterus Dysmenorrhea: no Irregular menses: no Menopausal symptoms: none, just less discharge Persistent CARRERO or visual changes: no, but has known pituitary gland enlargement Hirsutism: no Previous contraception used: phexxi Duration of regular unprotected intercourse: 1 year history of pelvic infections in patient or partner: no family history of endometriosis: no tobacco use for patient or her partner: no partner fathered any pregnancies: yes partner history of testicular issues, ejaculatory dysfunction, or history of Mumps: no Partner medications/vitamins/sup plements: started taking medication for adhd Partner's employment: [employer] any additional risk factors identified: none History 1 Elective abortions Hx Para 1 Spontaneous abortions Hx # Term Pregnancies Ectopic pregnancies Hx # Pregnancies Multiple births # of living children 1 Past Pregnancies Del. Date Name GA/Weeks Outcome Route Bth Weight Gen Labor Lgth Anesthesia Del [facility] Provider FOB 03/06/22 Aiad 38 live - full term 6lbs 7oz Female [facility] Pati Romano ROS Const ROS Unobtainable: All systems reviewed are unremarkable except as noted in H Resp Resp: Reports system reviewed and no additional complaints, except as documented; Denies cough GI GI: Reports as per HPI Psych Psych: Reports system reviewed and no additional complaints, except as documented Exam Const General: cooperative, healthy appearing, comfortable and no acute distress Resp Effort Inspection: normal respiratory effort Skin General: no rashes or lesions noted Psych Appearance: grossly normal Speech and Movement: speech and movement normal Coding Level of Care Code Off vis,est,level 3 Diagnoses 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 (2) Arcuate uterus: Status: Acute Orders: Orders Prolactin Today N97.2 - Female infertility of uterine origin, Q51.8 (more content not included)... Normal [facility] XR SPINE CERVICAL W/ OBLIQUE S 5 VIEWSon 11-04-2023 XR SPINE CERVICAL W/ OBLIQUES 5 VIEWS ORIGINAL EXAMINATION: FIVE XRAY VIEWS OF THE CERVICAL SPINE 11/04/2023 8:18 am COMPARISON: None. HISTORY: ORDERING SYSTEM PROVIDED HISTORY: Reason for Exam: neck pain Cervical pain, lump on posterior neck, no known injury IMPRESSION: Straightening of the cervical spine. Adequate visualization on lateral films to level of C7. No significant spondylolisthesis. Vertebral body heights and disc spaces are maintained. No radiographically visualized soft tissue mass. No soft tissue calcifications. No acute fracture. If clinical concern persists for soft tissue mass can correlate with point of care ultrasound. Interpreted by: Aziza Lujan Preliminary Report By: Aziza Lujan Electronically signed By Aziza Lujan Dictated Date: 11/04/2023 4:00:56 PM Prelim Date: 11/04/2023 4:04:24 PM Sign Date: 11/04/2023 4:04:24 PM Ordering Provider: KEVIN Gaston [facility] ([place]) A1Con 10-24-2023 HbA1c (Bld) [Mass fraction] 5.4 % Normal 4.0-6.0 [facility] ([place]) Comment on above: Performed By: #### V IDH, ANEU, ADIFF, TSH, FERR, CBC, FE, A1C, GFR, CMP, LIPID #### [address] [address] .Auto Diffon 10-23-2023 Basophil, Absolute 0.0 10 3/mcL Normal 0.0-0.3 [facility] ([place]) Comment on above: Performed By: #### V IDH, ANEU, ADIFF, TSH, FERR, CBC, FE, A1C, GFR, CMP, LIPID #### [address] [address] Basophils/100 WBC (Bld) 0.2 % Normal 0.0-2.5 [facility]) Comment on above: Performed By: #### V IDH, ANEU, ADIFF, TSH, FERR, CBC, FE, A1C, GFR, CMP, LIPID #### [address] [address] Eosinophil, Absolute 0.3 10 3/mcL Normal 0.0-0.7 [facility] ([place]) Comment on above: Performed By: #### V IDH, ANEU, ADIFF, TSH, FERR, CBC, FE, A1C, GFR, CMP, LIPID #### [address] [address] Eosinophils/100 WBC (Bld) 3.8 % Normal 0.0-6.0 [facility] ([place]) Comment on above: Performed By: #### V IDH, ANEU, ADIFF, TSH, FERR, CBC, FE, A1C, GFR, CMP, LIPID #### [address] [address] Lymphocyte, Absolute 1.7 10 3/mcL Normal 0.9-4.3 [facility] ([place]) Comment on above: Performed By: #### V IDH, ANEU, ADIFF, TSH, FERR, CBC, FE, A1C, GFR, CMP, LIPID #### [address] [address] Lymphocytes/100 WBC (Bld) 25.4 % Normal 20.0-40.0 [facility] ([place]) Comment on above: Performed By: #### V IDH, ANEU, ADIFF, TSH, FERR, CBC, FE, A1C, GFR, CMP, LIPID #### [address] [address] Monocyte, Absolute 0.5 10 3/mcL Normal 0.1-1.4 [facility] ([place]) Comment on above: Performed By: #### V IDH, ANEU, ADIFF, TSH, FERR, CBC, FE, A1C, GFR, CMP, LIPID #### [address] [address] Monocytes/100 WBC (Bld) 7.5 % Normal 2.0-13.0 [facility] ([place]) Comment on above: Performed By: #### V IDH, ANEU, ADIFF, TSH, FERR, CBC, FE, A1C, GFR, CMP, LIPID #### [address] [address] Neutrophils/100 WBC (Bld) 63.1 % Normal 50.0-75.0 [facility] ([place]) Comment on above: Performed By: #### V IDH, ANEU, ADIFF, TSH, FERR, CBC, FE, A1C, GFR, CMP, LIPID #### [address] [address] .GFRon 10-23-2023 GFR >60 Normal [facility] ([place]) Comment on above: Result Comment: GFR Population mean for , Non- Americans Ages 20-29 = 116 mL/min/1.73 sq.m. Ages 30-39 = 107 mL/min/1.73 sq.m. Ages 40-49 = 99 mL/min/1.73 sq.m. Ages 50-59 = 93 mL/min/1.73 sq.m. Ages 60-69 = 85 mL/min/1.73 sq.m. Ages 70+ = 75 mL/min/1.73 sq.m. Chronic Kidney Disease: Less than 60 mL/min/1.73 square meters End Stage Renal Disease: Less than 15 mL/min/1.73 square meters Performed By: #### V IDH, ANEU, ADIFF, TSH, FERR, CBC, FE, A1C, GFR, CMP, LIPID #### [address] [address] GFR Non- >60 Normal [facility] ([place]) Comment on above: Result Comment: GFR Population mean for , Non- Americans Ages 20-29 = 116 mL/min/1.73 sq.m. Ages 30-39 = 107 mL/min/1.73 sq.m. Ages 40-49 = 99 mL/min/1.73 sq.m. Ages 50-59 = 93 mL/min/1.73 sq.m. Ages 60-69 = 85 mL/min/1.73 sq.m. Ages 70+ = 75 mL/min/1.73 sq.m. Chronic Kidney Disease: Less than 60 mL/min/1.73 square meters End Stage Renal Disease: Less than 15 mL/min/1.73 square meters Performed By: #### V IDH, ANEU, ADIFF, TSH, FERR, CBC, FE, A1C, GFR, CMP, LIPID #### [place] [address] .NEUABSon 10-23-2023 Neutrophil, Absolute 4.2 10 3/mcL Normal 2.3-8.1 [facility] ([place]) Comment on above: Performed By: #### V IDH, ANEU, ADIFF, TSH, FERR, CBC, FE, A1C, GFR, CMP, LIPID #### [place] [address] CBCon 10-23-2023 Erythrocyte distribution width (RBC) [Ratio] 13.8 % Normal 11.5-15.5 [facility] ([place]) Comment on above: Performed By: #### V IDH, ANEU, ADIFF, TSH, FERR, CBC, FE, A1C, GFR, CMP, LIPID #### [place] [address] Hematocrit (Bld) [Volume fraction] 36.7 % Normal 34.0-46.0 [facility] ([place]) Comment on above: Performed By: #### V IDH, ANEU, ADIFF, TSH, FERR, CBC, FE, A1C, GFR, CMP, LIPID #### [place] [address] Hgb 12.0 G/dL Normal 12.0-16.0 [facility] ([place]) Comment on above: Performed By: #### V IDH, ANEU, ADIFF, TSH, FERR, CBC, FE, A1C, GFR, CMP, LIPID #### [place] [address] MCH (RBC) [Entitic mass] 25.6 pg Low 27.0-33.0 [facility] ([place]) Comment on above: Performed By: #### V IDH, ANEU, ADIFF, TSH, FERR, CBC, FE, A1C, GFR, CMP, LIPID #### [place] [address] MCHC 32.6 G/dL Normal 32.0-36.0 [facility] ([place]) Comment on above: Performed By: #### V IDH, ANEU, ADIFF, TSH, FERR, CBC, FE, A1C, GFR, CMP, LIPID #### [place] [id number] MCV (RBC) [Entitic vol] 78.5 fL Low 80.0-99.0 [facility] ([place]) Comment on above: Performed By: #### V IDH, ANEU, ADIFF, TSH, FERR, CBC, FE, A1C, GFR, CMP, LIPID #### [place] [address] Platelet 182 10 3/mcL Normal 150-450 [facility] ([place]) Comment on above: Performed By: #### V IDH, ANEU, ADIFF, TSH, FERR, CBC, FE, A1C, GFR, CMP, LIPID #### [place] [id number] Platelet mean volume (Bld) [Entitic vol] 9.8 fL Normal 6.6-10.5 [facility] ([place]) Comment on above: Performed By: #### V IDH, ANEU, ADIFF, TSH, FERR, CBC, FE, A1C, GFR, CMP, LIPID #### [place] [id number] RBC 4.68 10 6/mcL Normal 4.10-5.30 [facility] ([place]) Comment on above: Performed By: #### V IDH, ANEU, ADIFF, TSH, FERR, CBC, FE, A1C, GFR, CMP, LIPID #### [place] [id number] WBC 6.6 10 3/mcL Normal 4.5-10.8 [facility] ([place]) Comment on above: Performed By: #### V IDH, ANEU, ADIFF, TSH, FERR, CBC, FE, A1C, GFR, CMP, LIPID #### [place] [address] CMPon 10-23-2023 BUN/Creatinine Ratio Unable to Calculate Normal 10.0-2 2.0 [facility] ([place]) Comment on above: Result Comment: Unab le to calculate this test result accurately. Results used to calculate this test are outside the reportable range. Performed By: #### V IDH, ANEU, ADIFF, TSH, FERR, CBC, FE, A1C, GFR, CMP, LIPID #### [address] [address] Urea nitrogen [Mass/Vol] mg/dL Low 8.0-22.0 [facility] ([place]) Comment on above: Performed By: #### V IDH, ANEU, ADIFF, TSH, FERR, CBC, FE, A1C, GFR, CMP, LIPID #### [address] [address] Creatinine [Mass/Vol] 0.67 mg/dL Normal 0.50-1.20 [facility] ([place]) Comment on above: Performed By: #### V IDH, ANEU, ADIFF, TSH, FERR, CBC, FE, A1C, GFR, CMP, LIPID #### [address] [address] Albumin Level 3.7 G/dL Normal 3.2-4.8 [facility] ([place]) Comment on above: Performed By: #### V IDH, ANEU, ADIFF, TSH, FERR, CBC, FE, A1C, GFR, CMP, LIPID #### [address] [address] Albumin/Globulin [Mass ratio] 1.1 {ratio} Normal 0.9-1.6 [facility] ([place]) Comment on above: Performed By: #### V IDH, ANEU, ADIFF, TSH, FERR, CBC, FE, A1C, GFR, CMP, LIPID #### [address] [address] ALP [Catalytic activity/Vol] 77 U/L Normal 38-126 [facility] ([place]) Comment on above: Performed By: #### V IDH, ANEU, ADIFF, TSH, FERR, CBC, FE, A1C, GFR, CMP, LIPID #### [address] [address] ALT [Catalytic activity/Vol] 23 U/L Normal 10-49 [facility] ([place]) Comment on above: Performed By: #### V IDH, ANEU, ADIFF, TSH, FERR, CBC, FE, A1C, GFR, CMP, LIPID #### [address] [address] AST [Catalytic activity/Vol] 25 U/L Normal 8-34 [facility] ([place]) Comment on above: Performed By: #### V IDH, ANEU, ADIFF, TSH, FERR, CBC, FE, A1C, GFR, CMP, LIPID #### [address] [id number] Bili Total 0.30 mg/dL Normal 0.20-1.20 [facility] ([place]) Comment on above: Result Comment: Use of this assay is not recommended for patients undergoing treatment with eltrombopag due to the potential for falsely elevated results. Performed By: #### V IDH, ANEU, ADIFF, TSH, FERR, CBC, FE, A1C, GFR, CMP, LIPID #### [place] [address] Calcium [Mass/Vol] 9.1 mg/dL Normal 8.7-10.4 [facility] ([place]) Comment on above: Performed By: #### V IDH, ANEU, ADIFF, TSH, FERR, CBC, FE, A1C, GFR, CMP, LIPID #### [place] [id number] Chloride [Moles/Vol] 107 mmol/L Normal 98-110 [facility] ([place]) Comment on above: Performed By: #### V IDH, ANEU, ADIFF, TSH, FERR, CBC, FE, A1C, GFR, CMP, LIPID #### [address] [address] CO2 [Moles/Vol] 28 mmol/L Normal 22-32 [facility] ([place]) Comment on above: Performed By: #### V IDH, ANEU, ADIFF, TSH, FERR, CBC, FE, A1C, GFR, CMP, LIPID #### [place] [id number] Electrolyte Balance 5.0 mEq/L Normal 4.0-15.0 [facility] ([place]) Comment on above: Performed By: #### V IDH, ANEU, ADIFF, TSH, FERR, CBC, FE, A1C, GFR, CMP, LIPID #### [address] [address] Globulin 3.3 G/dL Normal 1.5-3.8 [facility] ([place]) Comment on above: Performed By: #### V IDH, ANEU, ADIFF, TSH, FERR, CBC, FE, A1C, GFR, CMP, LIPID #### [address] [address] Glucose [Mass/Vol] 93 mg/dL Normal 70-110 [facility] ([place]) Comment on above: Performed By: #### V IDH, ANEU, ADIFF, TSH, FERR, CBC, FE, A1C, GFR, CMP, LIPID #### [address] [address] Potassium [Moles/Vol] 3.8 mmol/L Normal 3.5-5.0 [facility] ([place]) Comment on above: Performed By: #### V IDH, ANEU, ADIFF, TSH, FERR, CBC, FE, A1C, GFR, CMP, LIPID #### [address] [address] Sodium [Moles/Vol] 140 mmol/L Normal 136-145 [facility] ([place]) Comment on above: Performed By: #### V IDH, ANEU, ADIFF, TSH, FERR, CBC, FE, A1C, GFR, CMP, LIPID #### [address] [address] Total Protein 7.0 G/dL Normal 5.7-8.2 [facility] ([place]) Comment on above: Result Comment: No te - New Reference Range in effect 20 Performed By: #### V IDH, ANEU, ADIFF, TSH, FERR, CBC, FE, A1C, GFR, CMP, LIPID #### [address] [address] FEon 10-23-2023 Iron [Mass/Vol] 20 ug/dL Low 50-170 [facility] ([place]) Comment on above: Performed By: #### V IDH, ANEU, ADIFF, TSH, FERR, CBC, FE, A1C, GFR, CMP, LIPID #### [address] [address] Ortiz 10-23-2023 Ferritin [Mass/Vol] 37.8 ng/mL Normal 8.0-252.0 [facility] ([place]) Comment on above: Performed By: #### V IDH, ANEU, ADIFF, TSH, FERR, CBC, FE, A1C, GFR, CMP, LIPID #### [address] [address] LIPIDon 10-23-2023 Cholesterol [Mass/Vol] 111 mg/dL Normal 50-199 [facility] ([place]) Comment on above: Result Comment: Chol esterol Reference Interval: Less than 200 Desirable 200-239 Borderline high risk 240 and above High risk Performed By: #### V IDH, ANEU, ADIFF, TSH, FERR, CBC, FE, A1C, GFR, CMP, LIPID #### [address] [address] Cholesterol in HDL [Mass/Vol] 42 mg/dL Normal 40-59 [facility] ([place]) Comment on above: Performed By: #### V IDH, ANEU, ADIFF, TSH, FERR, CBC, FE, A1C, GFR, CMP, LIPID #### [address] [address] Cholesterol in LDL [Mass/Vol] 58 mg/dL Normal 0-129 [facility] ([place]) Comment on above: Performed By: #### V IDH, ANEU, ADIFF, TSH, FERR, CBC, FE, A1C, GFR, CMP, LIPID #### [address] [address] Triglyceride [Mass/Vol] 55 mg/dL Normal 3-149 [facility] ([place]) Comment on above: Performed By: #### V IDH, ANEU, ADIFF, TSH, FERR, CBC, FE, A1C, GFR, CMP, LIPID #### [address] [address] TSHon 10-23-2023 TSH 2.975 mIU/mL Normal 0.550-4.780 [facility] ([place]) Comment on above: Result Comment: No te - New Reference Range in effect 20 Performed By: #### V IDH, ANEU, ADIFF, TSH, FERR, CBC, FE, A1C, GFR, CMP, LIPID #### [address] [address] VIDHon 10-23-2023 Vit. D 25-Hydroxy 13.8 ng/mL Normal [facility] ([place]) Comment on above: Result Comment: Inte rpretive Values Based on Total 25(OH)D: Severe Deficiency <20 ng/mL Mild to Moderate Deficiency 20-30 ng/mL Optimum Levels 30-100 ng/mL Toxicity Possible >100 ng/mL Performed By: #### V IDH, ANEU, ADIFF, TSH, FERR, CBC, FE, A1C, GFR, CMP, LIPID #### [place] [id number] [place] [id number] Absolute lymphocyte counton 03-21-2022 Lymphocytes Auto (Unsp spec) [#/Vol] 2.52 10*3/uL 0.83-4.51 [facility] Work Phone: Basophil percentageon 2021 Basophils/100 WBC (Bld) 0.5 % 0-1 [facility] Work Phone: Eosinophils/100 WBC (Bld) 2.9 % 0-5 [facility] Work Phone: Neutrophils (Bld) [#/Vol] 4.3 10*3/uL 2.0-7.7 [facility] Work Phone: Neutrophils/100 WBC (Bld) 57.6 % 47-70 [facility] Work Phone: WBC (Bld) [#/Vol] 7.5 10*3/uL 4.4-11.0 [facility] Work Phone: Blood erythrocytes count (nu mber/volume)on 03-21-2022 RBC (Bld) [#/Vol] 4.04 10*6/uL 4.2-5.4 [facility] Work [facility]: Blood hemoglobin measurement (mass/volume)on 03-21-2022 Hemoglobin (Bld) [Mass/Vol] 10.9 g/dL 12.0-15.0 [facility] Work Phone: [phone] Blood lymphocytes/100 leukoc yteson 03-21-2022 Lymphocytes/100 WBC (Bld) 33.5 % 19-41 [facility] Work Phone: [phone] Blood monocytes/100 leukocyt eson 03-21-2022 Monocytes/100 WBC (Bld) 4.8 % 0-10 [facility] Work Phone: [phone] Blood platelet mean volumeon 03-21-2022 Platelet mean volume (Bld) [Entitic vol] 10.9 fL 6.2-12.0 [facility] Work Phone: [phone] Determination of erythrocyte mean corpuscular volume (MCV)on 03-21-2022 MCV (RBC) [Entitic vol] 86.1 fL 81-99 [facility] Work Phone: [phone] Hematocrit Auto (Bld) [Volum e fraction]on 03-21-2022 Hematocrit (Bld) [Volume fraction] 34.8 % 37-47 [facility] Work Phone: [phone] Laboratory - Hematology and Cell countson 03-21-2022 Erythrocyte distribution width (RBC) [Entitic vol] 39.8 fL 35.1-43.9 [facility] Work Phone: [phone] Erythrocyte distribution width (RBC) [Ratio] 12.5 % 11.6-14.6 [facility] Work Phone: [phone] Immature granulocytes/100 WBC (Bld) 0.700 % 0.0-0.9 [facility] Work Phone: [phone] Comment on above: IG% - Immature Granu locytes (promyelocytes, myelocytes and metamyelocytes) > 1% indicates that a LEFT SHIFT is Present. MCH (RBC) [Entitic mass] 27.0 pg 27.0-32.0 [facility] Work Phone: [phone] Nucleated RBC/100 WBC (Bld) [Ratio] 0 % 0-5 [facility] Work Phone: [phone] MCHC Auto (RBC) [Mass/Vol]on 08-15-2022 MCHC (RBC) [Mass/Vol] 31.3 g/dL 32-36 [facility] Work Phone: Platelets bldon 03-21-2022 Platelets (Bld) [#/Vol] 235 10*3/uL 150-450 [facility] Work Phone: Basophil percentageon 2021 WBC (Bld) [#/Vol] 8.5 10*3/uL 4.4-11.0 [facility] Work Phone: Blood erythrocytes count (nu mber/volume)on 03-07-2022 RBC (Bld) [#/Vol] 3.14 10*6/uL 4.2-5.4 [facility] Work Phone: Blood hemoglobin measurement (mass/volume)on 03-07-2022 Hemoglobin (Bld) [Mass/Vol] 8.8 g/dL 12.0-15.0 [facility] Work Phone: Blood platelet mean volumeon 03-07-2022 Platelet mean volume (Bld) [Entitic vol] 12.0 fL 6.2-12.0 [facility] Work Phone: Determination of erythrocyte mean corpuscular volume (MCV)on 03-07-2022 MCV (RBC) [Entitic vol] 84.7 fL 81-99 [facility] Work Phone: [phone] Glucose Glucometer (BldC) [M ass/Vol]on 03-07-2022 Glucose [Mass/Vol] 106 mg/dL 74-106 [facility] Work Phone: Comment on above: MANAGEMENT OF PATIEN T CARE PER NURSING PROTOCOL Hematocrit Auto (Bld) [Volum e fraction]on 03-07-2022 Hematocrit (Bld) [Volume fraction] 26.6 % 37-47 [facility] Work Phone: Laboratory - Hematology and Cell countson 03-07-2022 Erythrocyte distribution width (RBC) [Entitic vol] 40.6 fL 35.1-43.9 [facility] Work Phone: [phone] Erythrocyte distribution width (RBC) [Ratio] 13.4 % 11.6-14.6 [facility] Work Phone: MCH (RBC) [Entitic mass] 28.0 pg 27.0-32.0 [facility] Work Phone: MCHC Auto (RBC) [Mass/Vol]on 03-07-2022 MCHC (RBC) [Mass/Vol] 33.1 g/dL 32-36 [facility] Work Phone: Platelets bldon 03-07-2022 Platelets (Bld) [#/Vol] 147 10*3/uL 150-450 [facility] Work Phone: Absolute lymphocyte counton 03-05-2022 Lymphocytes Auto (Unsp spec) [#/Vol] 2.44 10*3/uL 0.83-4.51 [facility] Work Phone: Basophil percentageon 2021 Basophil percentage 0-5 SEEN /hpf 0-5 [facility] Work Phone: Basophils/100 WBC (Bld) 0.2 % 0-1 [facility] Work Phone: Bilirubin [Mass/Vol] 0.20 mg/dL 0.20-1.00 [facility] Work Phone: Comment on above: For patients on eltr ombopag therapy, use of Dimension [place] TBIL is not recommended. Chloride [Moles/Vol] 108 mmol/L 98-107 [facility] Work Phone: Eosinophils/100 WBC (Bld) 0.7 % 0-5 [facility] Work Phone: Glucose [Mass/Vol] 115 mg/dL 74-106 [facility] Work Phone: Comment on above: Fasting Glucose resu lt from 100 to 125 mg/dL suggests IMPAIRED HOMEOSTASIS per A.D.A. criteria. Neutrophils (Bld) [#/Vol] 5.4 10*3/uL 2.0-7.7 [facility] Work Phone: Neutrophils/100 WBC (Bld) 63.8 % 47-70 [facility] Work Phone: Potassium [Moles/Vol] 3.3 mmol/L 3.5-5.1 [facility] Work Phone: Protein [Mass/Vol] 5.9 g/dL 6.4-8.2 [facility] Work Phone: Sodium [Moles/Vol] 138 mmol/L 136-145 [facility] Work Phone: [phone] Bilirubin Test strip Ql (U)o n 03-05-2022 Bilirubin Ql (U) Negative Negative [facility] Work Phone: Blood lymphocytes/100 leukoc yteson 03-05-2022 Lymphocytes/100 WBC (Bld) 28.7 % 19-41 [facility] Work Phone: Blood monocytes/100 leukocyt eson 03-05-2022 Monocytes/100 WBC (Bld) 5.8 % 0-10 [facility] Work Phone: Ketones Test strip Ql (U)on 03-05-2022 Ketones Ql (U) Negative Negative [facility] Work Phone: Laboratory - Chemistry and C hemistry - challengeon 03-05-2022 ALP [Catalytic activity/Vol] 127 U/L 45-117 [facility] Work Phone: ALT [Catalytic activity/Vol] 9 U/L 13-56 [facility] Work Phone: CO2 [Moles/Vol] 22.0 mmol/L 21.0-32.0 [facility] Work Phone: Globulin (S) [Mass/Vol] 3.6 g/dL 2.2-4.2 [facility] Work Phone: Urea nitrogen/Creatinine [Mass ratio] 10.1 mg/mg 10-20 [facility] Work Phone: Laboratory - Hematology and Cell countson 03-05-2022 Immature granulocytes/100 WBC (Bld) 0.800 % 0.0-0.9 [facility] Work Phone: Comment on above: IG% - Immature Granu locytes (promyelocytes, myelocytes and metamyelocytes) > 1% indicates that a LEFT SHIFT is Present. Nucleated RBC/100 WBC (Bld) [Ratio] 0 % 0-5 [facility] Work Phone: Mucus LM Ql (Urine sed)on Mucus Ql (Urine sed) 0 SEEN /hpf [facility] Work Phone: [phone] Nitrite Test strip Ql (U)on 03-05-2022 Nitrite Ql (U) Negative Negative [facility] Work Phone: No Panel Informationon 03-05 Estimated Creatinine Clearance Calc 118.57 ml/min [facility] Work Phone: Estimated GFR (MDRD) Amer 157 mL/min >60 [facility] Work Phone: Comment on above: GFR Calc Estimated GFR (MDRD) Non-Af Amer 130 mL/min >60 [facility] Work Phone: Comment on above: Non- GFR Calc Protein Test strip Ql (U)on 03-05-2022 Protein Ql (U) Negative Negative [facility] Work Phone: Serum or plasma albumin annelise urement (mass/volume)on 03-05-2022 Albumin [Mass/Vol] 2.3 g/dL 3.2-5.0 [facility] Work Phone: [phone] Serum or plasma albumin/glob ulin mass ratioon 03-05-2022 Albumin/Globulin [Mass ratio] 0.6 {ratio} 0.9-2.4 [facility] Work Phone: [phone] Serum or plasma calcium annelise urement (mass/volume)on 03-05-2022 Calcium [Mass/Vol] 8.1 mg/dL 8.5-10.1 [facility] Work Phone: [phone] Serum or plasma creatinine m easurement (mass/volume)on 03-05-2022 Creatinine [Mass/Vol] 0.60 mg/dL 0.55-1.02 [facility] Work Phone: Comment on above: The validity of the calculated GFR & GFRAA in patients over 70 years has not been determined. Clinical correlation is essential. Serum or plasma urea nitroge n measurement (mass/volume)on 03-05-2022 Urea nitrogen [Mass/Vol] 6 mg/dL 7-18 [facility] Work Phone: Squamous epithelial cells de tection in urine sediment by light microscopyon 03-05-2022 Epithelial cells.squamous LM Ql (Urine sed) 5-10 SEEN /hpf 5-10 [facility] Work Phone: Thin prep Papanicolaou smear with manual screeningon 03-05-2022 Thin prep Papanicolaou smear with manual screening 11 U/L 15-37 [facility] Work Phone: Thin prep Papanicolaou smear with manual screening 8 5-15 [facility] Work Phone: Urine blood detectionon 02-06 0 RBC Ql (U) Negative Negative [facility] Work Phone: RBC Ql (U) 0 SEEN /hpf 0-5 [facility] Work Phone: Urine clarityon 03-05-2022 Clarity (U) Sl. Cloudy Clear [facility] Work Phone: Urine color determinationon 03-05-2022 Color (U) Yellow Yellow [facility] Work Phone: Urine creatinine measurement (mass/volume)on 03-05-2022 Creatinine (U) [Mass/Vol] 62.80 mg/dL NO RANGE EST. [facility] Work Phone: Urine glucose detectionon Glucose Ql (U) Normal mg/dl Normal [facility] Work Phone: Urine leukocyte esterase det ection by dipstickon 03-05-2022 Leukocyte esterase Test strip Ql (U) 25 /ul Negative [facility] Work Phone: Urine pHon 03-05-2022 pH (U) 6.0 [pH] 5.0 - 8.0 [facility] Work Phone: Urine protein measurement (m ass/volume)on 03-05-2022 Protein (U) [Mass/Vol] 10.0 mg/dL 0.0-11.8 [facility] Work Phone: Urine protein/creatinine mas s ratioon 03-05-2022 Protein/Creatinine (U) [Mass ratio] 159 mg/g CRE 0-200 [facility] Work Phone: Urine sediment bacteria coun t by microscopy (number/high power field)on 03-05-2022 Bacteria LM.HPF (Urine sed) [#/Area] 1 /[HPF] None Seen [facility] Work Phone: Urine specific gravity measu rementon 03-05-2022 Specific gravity (U) [Rel density] 1.015 1.002-1.030 [facility] Work Phone: Urobilinogen Auto test strip Ql (U)on 03-05-2022 Urobilinogen Ql (U) Normal mg/dl Normal [facility] Work Phone: Laboratory - Chemistry and C hemistry - challengeon 02-23-2022 Glucose Ql (U) Negative [facility] Work Phone: Laboratory - Urinalysison Protein Ql (U) Negative [facility] Work Phone: Laboratory - Chemistry and C hemistry - challengeon 02-09-2022 Glucose Ql (U) Negative [facility] Work Phone: Laboratory - Urinalysison Protein Ql (U) Negative [facility] Work Phone: Laboratory - Chemistry and C hemistry - challengeon 02-03-2022 Glucose Ql (U) Negative [facility] Work Phone: Laboratory - Urinalysison Protein Ql (U) Negative [facility] Work Phone: Glucose Glucometer (BldC) [M ass/Vol]on 01-19-2022 Glucose [Mass/Vol] 112 mg/dL 74-106 [facility] Work Phone: Comment on above: MANAGEMENT OF PATIEN T CARE PER NURSING PROTOCOL Basophil percentageon 2021 WBC (Bld) [#/Vol] 9.4 10*3/uL 4.4-11.0 [facility] Work Phone: Blood erythrocytes count (nu mber/volume)on 01-18-2022 RBC (Bld) [#/Vol] 4.01 10*6/uL 4.2-5.4 [facility] Work Phone: Blood hemoglobin measurement (mass/volume)on 01-18-2022 Hemoglobin (Bld) [Mass/Vol] 11.4 g/dL 12.0-15.0 [facility] Work Phone: Blood platelet mean volumeon 01-18-2022 Platelet mean volume (Bld) [Entitic vol] 11.3 fL 6.2-12.0 [facility] Work Phone: Determination of erythrocyte mean corpuscular volume (MCV)on 01-18-2022 MCV (RBC) [Entitic vol] 87.0 fL 81-99 [facility] Work Phone: [phone] Hematocrit Auto (Bld) [Volum e fraction]on 01-18-2022 Hematocrit (Bld) [Volume fraction] 34.9 % 37-47 [facility] Work Phone: Laboratory - Chemistry and C hemistry - challengeon 01-18-2022 Glucose Ql (U) Negative [facility] Work Phone: [phone] Laboratory - Drug toxicology on 01-18-2022 Benzodiazepines Ql (U) Negative < 200 ng/mL [facility] Work Phone: [phone] Cannabinoids Screen Ql (U) Negative < 50 ng/mL [facility] Work Phone: [phone] Cocaine Ql (U) Negative < 300 ng/mL [facility] Work Phone: [phone] Opiates Ql (U) Negative < 300 ng/mL [facility] Work Phone: Laboratory - Hematology and Cell countson 01-18-2022 Erythrocyte distribution width (RBC) [Entitic vol] 38.1 fL 35.1-43.9 [facility] Work Phone: [phone] Erythrocyte distribution width (RBC) [Ratio] 12.0 % 11.6-14.6 [facility] Work Phone: [phone] MCH (RBC) [Entitic mass] 28.4 pg 27.0-32.0 [facility] Work Phone: [phone] Laboratory - Urinalysison Protein Ql (U) Negative [facility] Work Phone: [phone] MCHC Auto (RBC) [Mass/Vol]on 01-18-2022 MCHC (RBC) [Mass/Vol] 32.7 g/dL 32-36 [facility] Work Phone: No Panel Informationon 01-18 MDMA (Ecstasy) Screen Negative < 500 ng/mL [facility] Work Phone: [phone] Urine Barbiturates Screen Negative < 200 ng/mL [facility] Work Phone: [phone] Urine Drug Screen Comment [facility] Work Phone: [phone] Comment on above: CONFIRMATORY TESTING FOR ALL POSITIVE URINE DRUG SCREENRESULTS WILL ONLY BE SENT OUT UPON PHYSICIAN ORDER. VISTA Urine Drug Screen methods provide only preliminaryanalytical test results. A more specific alternate chemicalmethod must be used in order to obtain a confirmedanalytical result. Gas chromatography/mass spectrometery(GC/MS) is the preferred confirmatory method. Clinicalconsideration and professional judgement should be appliedto any drug of abuse test result, particularly whenpreliminary positive results are used. URINE TCA TESTING MUST BE ORDERED SEPARATELY. USE TESTMNEMONIC: [facility] Urine Methadone Screen Negative < 300 ng/mL [facility] Work Phone: Platelets bldon 01-18-2022 Platelets (Bld) [#/Vol] 181 10*3/uL 150-450 [facility] Work Phone: Urine amphetamine measuremen t (moles/volume)on 01-18-2022 Amphetamine (U) [Moles/Vol] Negative <1000 ng/mL [facility] Work Phone: Urine phencyclidine (PCP) de tectionon 01-18-2022 Phencyclidine Ql (U) Negative < 25 ng/mL [facility] Work Phone: Laboratory - Hematology and Cell countson 01-13-2022 HbA1c (Bld) [Mass fraction] 5.4 % 4.2-6.3 [facility] Work Phone: Laboratory - Chemistry and C hemistry - challengeon 01-12-2022 Glucose Ql (U) Negative [facility] Work Phone: Laboratory - Urinalysison Protein Ql (U) Negative [facility] Work Phone: Quantitative serum or plasma 3 hour gestational glucose tolerance panelon 01-05-2022 Glucose tolerance 3 hours gestational panel See comment [facility] Work Phone: Comment on above: FASTING 100 Col: 08/28 0715GLUCOSE TOLERANCE TEST FOR Reference Interval GESTATIONAL DIABETES Fasting <105 mg/dL 1 hour <190 mg/dl 2 hour <165 mg/dl 3 hour <145 mg/dl 1 HR GLU 188 Col: 01/05/22 0824 2 HR GLU 121 Col: 01/05/22 0924 3 HR GLU 105 Col: 01/05/22 1025 Absolute lymphocyte counton 12-28-2021 Lymphocytes Auto (Unsp spec) [#/Vol] 1.76 10*3/uL 0.83-4.51 [facility] Work Phone: Basophil percentageon 2021 Basophils/100 WBC (Bld) 0.3 % 0-1 [facility] Work Phone: Eosinophils/100 WBC (Bld) 1.4 % 0-5 [facility] Work Phone: Neutrophils (Bld) [#/Vol] 5.1 10*3/uL 2.0-7.7 [facility] Work Phone: Neutrophils/100 WBC (Bld) 69.1 % 47-70 [facility] Work Phone: WBC (Bld) [#/Vol] 7.4 10*3/uL 4.4-11.0 [facility] Work Phone: Blood erythrocytes count (nu mber/volume)on 12-28-2021 RBC (Bld) [#/Vol] 3.63 10*6/uL 4.2-5.4 [facility] Work Phone: Blood hemoglobin measurement (mass/volume)on 12-28-2021 Hemoglobin (Bld) [Mass/Vol] 10.6 g/dL 12.0-15.0 [facility] Work Phone: Blood lymphocytes/100 leukoc yteson 12-28-2021 Lymphocytes/100 WBC (Bld) 23.9 % 19-41 [facility] Work Phone: Blood monocytes/100 leukocyt eson 12-28-2021 Monocytes/100 WBC (Bld) 4.2 % 0-10 [facility] Work Phone: Blood platelet mean volumeon 12-28-2021 Platelet mean volume (Bld) [Entitic vol] 11.0 fL 6.2-12.0 [facility] Work Phone: Determination of erythrocyte mean corpuscular volume (MCV)on 12-28-2021 MCV (RBC) [Entitic vol] 86.0 fL 81-99 [facility] Work Phone: Gestational diabetes screen 1-hour screen with 50g oral glucose loadon 12-28-2021 Glucose 1 Hr post 50 g glucose PO [Mass/Vol] 165 mg/dL 70-140 [facility] Work Phone: Hematocrit Auto (Bld) [Volum e fraction]on 12-28-2021 Hematocrit (Bld) [Volume fraction] 31.2 % 37-47 [facility] Work Phone: Laboratory - Chemistry and C hemistry - challengeon 05-24-2022 Glucose Ql (U) Negative [facility] Work Phone: Laboratory - Hematology and Cell countson 12-28-2021 Erythrocyte distribution width (RBC) [Entitic vol] 37.8 fL 35.1-43.9 [facility] Work Phone: Erythrocyte distribution width (RBC) [Ratio] 12.0 % 11.6-14.6 [facility] Work Phone: Immature granulocytes/100 WBC (Bld) 1.100 % 0.0-0.9 [facility] Work Phone: Comment on above: IG% - Immature Granu locytes (promyelocytes, myelocytes and metamyelocytes) > 1% indicates that a LEFT SHIFT is Present. MCH (RBC) [Entitic mass] 29.2 pg 27.0-32.0 [facility] Work Phone: Nucleated RBC/100 WBC (Bld) [Ratio] 0 % 0-5 [facility] Work Phone: Laboratory - Urinalysison Protein Ql (U) Negative [facility] Work Phone: MCHC Auto (RBC) [Mass/Vol]on 12-28-2021 MCHC (RBC) [Mass/Vol] 34.0 g/dL 32-36 [facility] Work Phone: Platelets bldon 12-28-2021 Platelets (Bld) [#/Vol] 191 10*3/uL 150-450 [facility] Work Phone: Laboratory - Chemistry and C hemistry - challengeon 12-08-2021 Glucose Ql (U) Negative [facility] Work Phone: Laboratory - Urinalysison Protein Ql (U) Trace [facility] Work Phone: Laboratory - Chemistry and C hemistry - challengeon 10-15-2021 Glucose Ql (U) Negative [facility] Work Phone: Laboratory - Urinalysison Protein Ql (U) Negative [facility] Work Phone: Laboratory - Chemistry and C hemistry - challengeon 09-17-2021 Glucose Ql (U) Negative [facility] Work Phone: Laboratory - Urinalysison Protein Ql (U) Negative [facility] Work Phone: Laboratory - Chemistry and C hemistry - challengeon 09-09-2021 Glucose Ql (U) Negative [facility] Work Phone: Laboratory - Urinalysison Protein Ql (U) Negative [facility] Work Phone: LABORATORYOrdered By: Jey Mandujano on 08-31-2021 Appearance (U) Hazy *ABN* (08/31/21 2:40 PM) Invalid Interpretation Code Auto Urine SS Bacteria LM.HPF (Urine sed) [#/Area] 4 /[HPF] Invalid Interpretation Code Negative/HP F Auto Urine SS Bilirubin Ql (U) Negative (08/31/21 2:40 PM) Invalid Interpretation Code Neg-Trace Auto Urine SS Color (U) Yellow (08/31/21 2:40 PM) Invalid Interpretation Code Auto Urine SS Glucose Test strip (U) [Mass/Vol] Negative Invalid Interpretation Code Negativemg/ dL AH Auto Urine SS Hemoglobin Auto test strip (U) [Mass/Vol] Trace (08/31/21 2:40 PM) Invalid Interpretation Code Neg-Trace Auto Urine SS Ketones Ql (U) 80 mg/dL Invalid Interpretation Code Neg-Tracemg /dL Auto Urine SS UA Leuk Est Moderate *ABN* (08/31/21 2:40 PM) Invalid Interpretation Code Negative Auto Urine SS UA Mucous Trace /HPF Invalid Interpretation Code Auto Urine SS UA Nitrite Negative (08/31/21 2:40 PM) Invalid Interpretation Code Negative Auto Urine SS UA pH 6.0 (08/31/21 2:40 PM) Invalid Interpretation Code 5.0 - 8.0 Auto Urine SS UA Protein Negative Invalid Interpretation Code Negativemg/ dL Auto Urine SS UA RBC Rare /HPF Invalid Interpretation Code 0-2/HPF Auto Urine SS UA Spec Grav 1.025 (08/31/21 2:40 PM) Invalid Interpretation Code Auto Urine SS UA Specimen Type Clean Catch (08/31/21 2:40 PM) Invalid Interpretation Code Auto Urine SS UA Squam Epithelial 10-20 /HPF Invalid Interpretation Code 0-20/HPF Auto Urine SS UA Urobilinogen 0.2 E.U./dL Invalid Interpretation Code AH Auto Urine SS WBC LM.HPF (Urine sed) [#/Area] 50-100 /HPF Invalid Interpretation Code 0-5/HPF Auto Urine SS LABORATORYOrdered By: SYSTEM SYSTEM on 08-31-2021 Albumin [Mass/Vol] 3.6 G/dL Invalid Interpretation Code 3.2 - 4.8 G/dL ADM SS Albumin/Globulin [Mass ratio] 0.9 {ratio} Invalid Interpretation Code 0.9 - 1.6 ratio AH ADM SS ALP [Catalytic activity/Vol] 76 U/L Invalid Interpretation Code 38 - 126 U/L ADM SS ALT [Catalytic activity/Vol] 16 U/L Invalid Interpretation Code 10 - 49 U/L ADM SS AST [Catalytic activity/Vol] 5 U/L Invalid Interpretation Code 8 - 34 U/L ADM SS Base excess Calc (BldMV) [Moles/Vol] 7.0 mEq/L Invalid Interpretation Code 4.0 - 15.0 mEq/L ADM SS Basophils (Bld) [#/Vol] 0.00 103/mcL Invalid Interpretation Code 0.00 - 0.27 10^3/mcL AH Remisol SS Basophils/100 WBC (Bld) 0.2 % Invalid Interpretation Code 0.0 - 2.5 % Remisol SS Bilirubin [Mass/Vol] 0.3 mg/dL Invalid Interpretation Code 0.2 - 1.2 mg/dL ADM SS Calcium [Mass/Vol] 9.4 mg/dL Invalid Interpretation Code 8.4 - 10.1 mg/dL ADM SS Chloride [Moles/Vol] 105 mmol/L Invalid Interpretation Code 98 - 110 mEq/L ADM SS CO2 [Moles/Vol] 26 mmol/L Invalid Interpretation Code 22 - 32 mEq/L AH ADM SS Creatinine [Mass/Vol] 0.49 mg/dL Invalid Interpretation Code 0.50 - 1.20 mg/dL ADM SS Eosinophils (Bld) [#/Vol] 0.00 103/mcL Invalid Interpretation Code 0.00 - 0.65 10^3/mcL AH Remisol SS Eosinophils/100 WBC (Bld) 0.5 % Invalid Interpretation Code 0.0 - 6.0 % AH Remisol SS Erythrocyte distribution width (RBC) [Ratio] 13.8 % Invalid Interpretation Code 11.5 - 15.5 % AH Remisol SS GFR/1.73 sq M.predicted among blacks MDRD (S/P/Bld) [Vol rate/Area] ml/min/1.73sqm Invalid Interpretation Code AH ADM SS GFR/1.73 sq M.predicted among non-blacks MDRD (S/P/Bld) [Vol rate/Area] ml/min/1.73sqm Invalid Interpretation Code AH ADM SS Globulin (S) [Mass/Vol] 4.1 G/dL Invalid Interpretation Code 1.5 - 3.8 G/dL AH ADM SS Glucose [Mass/Vol] 84 mg/dL Invalid Interpretation Code 70 - 110 mg/dL AH ADM SS Hematocrit (Bld) [Volume fraction] 37.6 % Invalid Interpretation Code 34.0 - 46.0 % AH Remisol SS Hemoglobin (Bld) [Mass/Vol] 12.6 G/dL Invalid Interpretation Code 12.0 - 16.0 G/dL Remisol SS Lipase [Catalytic activity/Vol] 23 U/L Invalid Interpretation Code 12 - 53 U/L AH ADM SS Lymphocytes (Bld) [#/Vol] 1.60 103/mcL Invalid Interpretation Code 0.90 - 4.32 10^3/mcL AH Remisol SS Lymphocytes/100 WBC (Bld) 19.5 % Invalid Interpretation Code 20.0 - 40.0 % AH Remisol SS MCH (RBC) [Entitic mass] 28.1 pg Invalid Interpretation Code 27.0 - 33.0 pg AH Remisol SS MCHC (RBC) [Mass/Vol] 33.6 G/dL Invalid Interpretation Code 32.0 - 36.0 G/dL AH Remisol SS MCV (RBC) [Entitic vol] 83.6 fL Invalid Interpretation Code 80.0 - 99.0 fL AH Remisol SS Monocytes (Bld) [#/Vol] 0.30 103/mcL Invalid Interpretation Code 0.09 - 1.40 10^3/mcL AH Remisol SS Monocytes/100 WBC (Bld) 3.4 % Invalid Interpretation Code 2.0 - 13.0 % AH Remisol SS Neutrophils (Bld) [#/Vol] 6.50 103/mcL Invalid Interpretation Code 2.25 - 8.10 10^3/mcL AH Remisol SS Neutrophils/100 WBC (Bld) 76.4 % Invalid Interpretation Code 50.0 - 75.0 % AH Remisol SS Platelet mean volume (Bld) [Entitic vol] 9.1 fL Invalid Interpretation Code 6.6 - 10.5 fL AH Remisol SS Platelets (Bld) [#/Vol] 204 103/mcL Invalid Interpretation Code 150 - 450 10^3/mcL AH Remisol SS Potassium [Moles/Vol] 4.0 mmol/L Invalid Interpretation Code 3.5 - 5.0 mEq/L AH ADM SS Protein [Mass/Vol] 7.7 G/dL Invalid Interpretation Code 6.0 - 8.5 G/dL AH ADM SS RBC (Bld) [#/Vol] 4.50 106/mcL Invalid Interpretation Code 4.10 - 5.30 10^6/mcL AH Remisol SS Sodium [Moles/Vol] 138 mmol/L Invalid Interpretation Code 136 - 145 mEq/L AH ADM SS Urea nitrogen [Mass/Vol] 5.0 mg/dL Invalid Interpretation Code 8.0 - 22.0 mg/dL AH ADM SS Urea nitrogen/Creatinine [Mass ratio] 10.2 ratio Invalid Interpretation Code 10.0 - 22.0 ratio AH ADM SS WBC (Bld) [#/Vol] 8.50 103/mcL Invalid Interpretation Code 4.50 - 10.80 10^3/mcL AH Remisol SS Testosterone Free / Totalon 06-30-2021 % Free Testosterone 1.55 % Normal 0.50-2.80 [facility] Comment on above: Order Comment: Perfo rmed at: CB - [facility] [address] [id number] Director: Varun Vicente PhD, Phone: [phone] at: - [facility] [address] [id number] Director: Isauro Hernandez MD, Phone: [phone] Result Comment: Perf ormed at: BN Performed By: #### B HCGQNT #### [facility] [address] [place], [place] [address] Testosterone [Mass/Vol] 53 ng/dL Normal 13-71 [facility] Comment on above: Order Comment: Perfo rmed at: [facility] [id number] Director: Varun Vicente PhD, Phone: [phone] at: [address] [id number] Director: Isauro Hernandez MD, Phone: [phone] Result Comment: Perf ormed at: CB Performed By: #### B HCGQNT #### [place] [id number] Testosterone,Free 0.82 ng/dL Normal 0.10-0.85 [facility] Comment on above: Order Comment: Perfo rmed at: [facility] [address] [id number] Director: Varnu Vicente PhD, Phone: [phone] at: [address] [id number] Director: Isauro Hernandez MD, Phone: [phone] Result Comment: Perf ormed at: BN Performed By: #### B HCGQNT #### [place] [id number] Free T3on 06-24-2021 Free T3 [Mass/Vol] 3.30 pg/mL Normal 2.00-4.40 [facility] Comment on above: Performed By: #### B HCGQNT #### [address] [address] Free T4on 06-24-2021 Biotin Interference Samples should not b e taken from patients receiving therapy with high biotin doses (i.e. >5mg/day) until at least 8 hours following the last biotin administration. [facility] Comment on above: Performed By: #### B HCGQNT #### [place] [id number] Free T4 [Mass/Vol] 1.13 ng/dL Normal 0.93-1.70 [facility] Comment on above: Performed By: #### B HCGQNT #### [facility] [address] [place] [address] TSHon 06-24-2021 TSH 1.67 uIU/mL Normal 0.27-4.20 [facility] Comment on above: Performed By: #### B HCGQNT #### [facility] [address] [place] [address] Insulin-like Growth Factoron 05-29-2021 IGF-I, LC/MS 167 ng/mL Normal 83-456 [facility] Comment on above: Performed By: #### F REET3, TSH, SHAUN #### [facility] [address] [place] [address] Z-Score (Female) -0.3 SD Normal 2.0 +2.0 [facility] Comment on above: Result Comment: This test was developed and its analytical performance characteristics have been determined by [employer] [facility]. It has not been cleared or approved by FDA. This assay has been validated pursuant to the CLIA regulations and is used for clinical purposes. Test performed by [employer] [facility] [id number] [place] [address] Co Founder And Cto: Rasheeda Mercedes MD,PHD,ADAM Test Reported by [facility], [employer] [facility], [address] [place] [address] Mat Mccallum M.D., Ph.D., Director of Laboratories , CLIA [id number] Performed By: #### F REET3, TSH, SHAUN #### [facility] [address] [place] [address] Z-Score (Male) DNR Normal [facility] Comment on above: Performed By: #### F REET3, TSH, SHAUN #### [facility] [address] [place] [address] Testosterone Free / Totalon 05-27-2021 % Free Testosterone 2.71 % Normal 0.50-2.80 [facility] Comment on above: Order Comment: Perfo rmed at: CB - [address] [id number] Director: Varun Vicente PhD, Phone: [phone] at: [address] [id number] Director: Isauro Hernandez MD, Phone: [phone] Result Comment: Perf ormed at: BN Performed By: #### B HCGQNT #### [address] [address] Testosterone [Mass/Vol] 54 ng/dL Normal [facility] Comment on above: Order Comment: Perfo rmed at: [facility] [address] [id number] Director: Varun Vicente PhD, Phone: [phone] at: [address] [id number] Director: Isauro Hernandez MD, Phone: [phone] Result Comment: Perf ormed at: CB Performed By: #### B HCGQNT #### [facility] [address] [place] [address] Testosterone,Free 1.46 ng/dL High 0.10-0.85 [facility] Comment on above: Order Comment: Perfo rmed at: [facility] [address] [id number] Director: Varun Vicente PhD, Phone: [phone] at: [address] [id number] Director: Isauro Hernandez MD, Phone: [phone] Result Comment: Perf ormed at: BN Performed By: #### B HCGQNT #### [facility] [address] [place] [address] Estradiol / E2on 05-26-2021 Estradiol 70 pg/mL Normal [facility] Comment on above: Result Comment: Unable to flag abnormal result(s), please refer to reference range(s) below: Females: Follicular Phase: 19 - 144 pg/mL Mid-Cycle: 64 - 357 pg/mL Luteal Phase: 56 - 214 pg/mL Post-Menopausal: <= 31 pg/mL Reference range established on post-pubertal patient population. No pre-pubertal reference range established using this assay. For any patients for whom low Estradiol levels are anticipated (e.g. males, pre-pubertal children, and hypogonadal/post-menopausal females), the [employer] Estradiol, Ultrasensitive, LCMSMS assay is recommended (order code 43481). Please note: Patients being treated with the drug fulvestrant [Faslodex(R)] have demonstrated significant interference in immunoassay methods for estradiol measurement. The cross reactivity could lead to falsely elevated estradiol test results leading to an inappropriate clinical assessment of estrogen status. [employer] order code [id number], Ultrasensitive LC/MS/MS demonstrates negligible cross reactivity with fulvestrant. Test Performed by [employer], [address] [place] [address] Mat Mccallum M.D., Ph.D., Director of Laboratories , CLIA [id number] Performed By: #### E STRADL #### [place] [id number] Luteinizing Hormoneon 2020 LH, Serum 4.1 mIU/mL Normal [facility] Comment on above: Result Comment: Unable to flag abnormal result(s), please refer to reference range(s) below: Adult Female reference ranges for LH: Follicular Phase: 1.9-12.5 mIU/mL Mid-Cycle Peak: 8.7-76.3 mIU/mL Luteal Phase: 0.5-16.9 mIU/mL Postmenopausal: 10.0-54.7 mIU/mL Test Performed by [facility] [employer], [address] [place] [address] Mat Mccallum M.D., Ph.D., Director of Laboratories , CLIA [id number] Performed By: #### F REET3, TSH, SHAUN #### [address] [address] ACTHon 05-24-2021 ACTH, Plasma 57.5 pg/mL Normal 7.2-63.3 [facility] Comment on above: Order Comment: Perfo rmed at: [facility] [id number] Director: Varun Vicente PhD, Phone: [phone] Result Comment: ACTH reference interval for samples collected between 7 and 10 AM. Performed By: #### F REET3, TSH, SHAUN #### [facility] [address] [place], [place] [id number] DHEA SO4on 05-23-2021 DHEA-Sulfate 406.0 ug/dL Normal 110.0-431.7 [facility] Comment on above: Order Comment: Perfo rmed at: [facility] [id number] Director: Varun Vicente PhD, Phone: [phone] Performed By: #### F REET3, TSH, SHAUN #### [address] [address] Follicle Stimulating Hormone on 05-23-2021 FSH 5.4 mIU/mL Normal [facility] Comment on above: Order Comment: Perfo rmed at: [facility] [id number] Director: Varun Vicente PhD, Phone: [phone] Result Comment: Adul t Female: Follicular phase 3.5 - 12.5 Ovulation phase 4.7 - 21.5 Luteal phase 1.7 - 7.7 Postmenopausal 25.8 - 134.8 Performed By: #### F REET3, TSH, SHAUN #### [address] [address] Progesteroneon 05-23-2021 Progesterone 0.2 ng/mL Normal [facility] Comment on above: Order Comment: Perfo rmed at: [facility] [id number] Director: Varun Vicente PhD, Phone: [phone] Result Comment: Foll icular phase 0.1 - 0.9 Luteal phase 1.8 - 23.9 Ovulation phase 0.1 - 12.0 First trimester 11.0 - 44.3 Second trimester 25.4 - 83.3 Third trimester 58.7 - 214.0 Postmenopausal 0.0 - 0.1 Performed By: #### F REET3, TSH, SHAUN #### [facility] [address] [place] [address] Prolactinon 05-23-2021 Prolactin 13.6 ng/mL Normal 4.8-23.3 [facility] Comment on above: Order Comment: Perfo rmed at: [facility] [address] [id number] Director: Varun Vicente PhD, Phone: [phone] Performed By: #### F REET3, TSH, SHAUN #### [facility] [address] [place] [address] B-HCG Quantitativeon 021 B-HCG Gest REF RANGE INTERPRETA TION Non- Female <=1 mIU/mL Post menopausal Female <=7 mIU/mL Male < 2 mIU/mL B-HCG GESTATIONAL AGE 3 Weeks 5.8-71.2 mIU/mL 4 Weeks 9.5-750 mIU/mL 5 Weeks 217-7138 mIU/mL 6 Weeks 158-52228 mIU/mL 7 Weeks 3697-494509 mIU/mL 8 Weeks 19875-444443 mIU/mL 9 Weeks 24359-738269 mIU/mL 10 Weeks 62693-753018 mIU/mL 12 Weeks 54857-987800 mIU/mL 14 Weeks 91324-85407 mIU/mL 15 Weeks 92558-88590 mIU/mL 16 Weeks 9040-63253 mIU/mL 17Weeks 8175-47103 mIU/mL 18 Weeks 8099-34631 mIU/mL Invalid Interpretation Code [facility] Comment on above: Performed By: #### F REET3, TSH, SHAUN #### [facility] [address] [place] [address] B-HCG Quant <0.10 Normal <=1.00 [facility] Comment on above: Performed By: #### F REET3, TSH, SHAUN #### [facility] [address] [place] [address] Cortisol Totalon 05-22-2021 Cortisol 13.5 ug/mL [facility] Comment on above: Performed By: #### F REET3, TSH, SAHUN #### [facility] [address] [place] [address] Cortisol Ref Range AM CORTISOL 6.2 - 19 .4 PM CORTISOL 2.3 - 11.9 [facility] Comment on above: Performed By: #### F REET3, TSH, SHAUN #### [facility] [address] [place] [address] Free T3on 05-22-2021 Biotin Interference Samples should not b e taken from patients receiving therapy with high biotin doses (i.e. >5mg/day) until at least 8 hours following the last biotin administration. [facility] Comment on above: Performed By: #### F REET3, TSH, SHAUN #### [address] [address] Free T3 [Mass/Vol] 3.97 pg/mL Normal 2.00-4.40 [facility] Comment on above: Performed By: #### F REET3, TSH, SHAUN #### [address] [address] Free T4on 05-22-2021 Free T4 [Mass/Vol] 1.15 ng/dL Normal 0.93-1.70 [facility] Comment on above: Performed By: #### F REET3, TSH, SHAUN #### [address] [address] MRI Brain w/wo contraston MRI Brain w/wo contrast EXAMINATION: MRI of the brain and pituitary fossa without and with contrast. COMPARISON: 10/24/2020. REASON FOR STUDY: Chronic migraines; enlarged pituitary gland. TECHNIQUE: Axial and sagittal spin-echo T1 and T2-weighted, FLAIR and diffusion-weighted images of the brain were obtained before and after intravenous infusion of 7.5 mL of Gadavist. These are accompanied by dynamically enhanced thinly collimated axial and coronal T1 and T2-weighted images of the posterior fossa. FINDINGS: Brain: Booth-white matter differentiation appears normal. No focal parenchymal abnormality or mass effect is observed. Ventricles And Cisterns: Lateral and 3rd ventricles are severely decompressed. Cisterns and sulci are within normal limits. There is no shift of midline structures. Extra-Axial Spaces: No extra-axial abnormality is observed. Hypophyseal Fossa: Hypophyseal fossa is normal in size and configuration. Pituitary gland and stalk are normal in configuration, Pituitary gland measures 8.2 mm x 11.0 mm x 8.2 mm which is within normal limits. Infundibulum as well as optic chiasm and tracts appear normal. Contrast enhanced images are partially degraded by motion artifacts and no discrete abnormality is identified.. Orbits: Symmetric and within normal limits. Evaluation of the intraorbital contents is limited by artifactual degradation. Sinuses: No abnormality identified. Temporal Bones: No abnormality of the temporal bones of posterior fossa is identified. Skull And Scalp: No skull defect is observed. There is no appreciable scalp lesion. CONCLUSIONS: 1. Normal-sized pituitary gland with no discrete nodule identified. 2. Severe decompression of lateral and 3rd ventricles suspect for idiopathic intracranial hypertension. Further investigation is advised. Report Dictated on Authenticated by: Imtiaz Velázquez On: 05/24/2021 08:41 Read by: Wilder VELÁZQUEZ MD Date: 05/24/2021 08:41 Normal [facility] Comment on above: Order Comment: CONTR AST PER RADIOLOGIST DISCRETION TSHon 05-22-2021 TSH 4.21 uIU/mL High 0.27-4.20 [facility] Comment on above: Performed By: #### F REET3, TSH, SHAUN #### [facility] [place] [address] Operative Reporton Operative Report [facility] [address] [place] [place] [address] RECORD OF PROCEDURE PATIENT NAME: ABDULLAHI BEAL DATE OF : 1995 MED REC #: [id number] PT LOCATION: OR PACU PT TYPE: OPS AGE: 26 SEX: F ADMISSION DATE: 03/17/2021 DATE OF SERVICE: 03/17/2021 SURGEON: Abe Villa DO 1ST DIABETES CLINICAL MANAGER: Aldo Kilgore DO 2ND DIABETES CLINICAL MANAGER: Faheem Vee DO ANESTHESIA: General. ESTIMATED BLOOD LOSS: Under 25 mL. SPECIMENS: Adenoid tissue. COMPLICATIONS: None. DISPOSITION: Stable to PACU. INDICATIONS FOR PROCEDURE: This 26-year-old female presented to our office due to concern for nasal obstruction. She has had a longstanding history of trouble breathing through her nose despite appropriate conservative measures. An office examination did confirm deviated septum to the right as well as concern for adenoid hypertrophy on nasal endoscopy. Given these concerns, it was recommended that patient undergo adenoidectomy, septoplasty, and turbinate reduction. Risks, benefits, and alternatives were explained to patient who verbalized understanding and wishes to undergo the surgery. PREPROCEDURE DIAGNOSES: 1. Adenoid hypertrophy. 2. Deviated nasal septum. 3. Nasal turbinate hypertrophy. POSTPROCEDURE DIAGNOSES: 1. Adenoid hypertrophy. 2. Deviated nasal septum. 3. Nasal turbinate hypertrophy. FINDINGS: Adenoid tissue, approximately 30% hypertrophied, septal deviation to the right, bilateral nasal turbinate hypertrophy. DESCRIPTION OF PROCEDURE: Patient found at [facility] area March 17, 2021. Questions and concerns addressed at this time. Patient brought back to operating room 6, transferred to OR table supine. Timeout performed, and general anesthesia was initiated. The head of the bed was rotated 90 degrees counterclockwise. At this time, 10 mL of 1% lidocaine with 1:100,000 epinephrine were injected into the septum and the inferior turbinates bilaterally. Again, there was septal deviation to the right along the floor of the nose and significant bilateral turbinate hypertrophy, and we then packed the nasal cavity with Afrin-soaked cotton pledgets. At this time, we set up to perform the adenoidectomy. A Mela-Pramod mouth gag was inserted and placed on suspension. We then inserted a red rubber catheter through the right nostril and placed this on suspension after the Afrin packs had been removed. Please note we performed sterile gowning and gloving prior to proceeding. We then used a dental mirror to evaluate the adenoid tissue. They were approximately 30% hypertrophied. Using a PEEK PlasmaBlade with an adenoid attachment, the adenoid tissue was taken down in its entirety while avoiding the and not extending excision into the posterior nasal cavity. Once the adenoid tissue was completely taken down, a pack was placed into the adenoid tissue bed that was covered in bismuth. At this time, the red rubber and catheter and Mela-Pramod mouth gag were removed without any damage to the oral mucosa or dentition, and we then proceeded with septoplasty and turbinate reduction. We made a jann-transfixion on patient's left side down to the level of quadrangular cartilage. We elevated a mucoperichondrial and mucoperiosteal flap on patient's left. Once this was entirely elevated, we made an incision through the quadrangular cartilage approximately 1.5 cm from the caudal tip and elevated mucoperichondrial and mucoperiosteal flap on patient's right. Once this was elevated with the use of a freer, we then used a Unruly swivel knife to take down the deviated portions of the quadrangular cartilage. We then worked posteriorly and transected through the perpendicular plate of the ethmoid and removed the perpendicular plate of the ethmoid and vomer with a Sven. We then freed residual quadrangular cartilage from the floor of the nose with a freer and exposed the maxillary crest, which was widened and slightly deviated. This was taken down with an osteotome and removed in its entirety. At this time, the nasal septal cavity was rinsed with saline, evacuated with suction, and the flaps were laid down in an anatomic position with resolution of septal deviation. The initial incision was closed with a 4-0 chromic suture. We then proceeded with turbinate reduction. A stab incision was made at the head of the inferior turbinates bilaterally. A Sandoval was used to circumferentially undermine the submucosal tissue. A Xomed sinus shaver was used to take down the submucosal tissue of bilateral inferior turbinates, and they were then out-fractured laterally with an elongated nasal speculum. At this time, the nasal cavity was again irrigated with saline and evacuated with suction, and bacitracin-soaked Bailey splints were inserted and secured with a Prolene suture on a Cesar needle. We then placed a nasal dressing. We also removed the original adenoi (more content not included)... [facility] Surgical Pathology Depar [facility] 03-17-2021 [facility] Surgical Pathology Department Name ABDULLAHI BEAL Pathologist: GRISEL CLEARY DMD. Date of Procedure: 03/17/2021 Date Received: 03/17/2021 Date Reported 03/24/2021 Submitting Physician: ABE VILLA DO Location: [facility] Copy To/Referring/Attending: HERI SUÁREZ DO Other External # [id number] FINAL DIAGNOSIS ADENOID TISSUE, ADENOIDECTOMY: -- FOLLICULAR LYMPHOID HYPERPLASIA. at The gross and/or microscopic findings were reviewed in conjunction with pathology resident, Jovita Agarwal M.D., PhD. Electronically Signed Out By GRISEL CLEARY DMD./AMT By the signature on this report, the individual or group listed as making the Final Interpretation/Diagnosis certifies that they have reviewed this case. Clinical History: DNS, [facility] adenoid hypertrophy Specimens Submitted As: A: ADNOID TISSUE Other Case Numbers [id number] Gross Description: Received in formalin, labeled with the patient's name and hospital number and adenoids, are multiple segments of soft focally hemorrhagic lobulated tissue aggregating to 2.0 x 3.0 x 0.8 cm. The specimen is submitted in toto in 2 cassettes. CJN cjn/03/22/2021 [facility] Department of Pathology [address] [place] [address] Normal [facility] Comment on above: Performed By: #### U HCS #### [facility] Surgical Pathology Department [address] [place], [place] [id number] Testosterone Free / Totalon 03-07-2021 % Free Testosterone 2.56 % Normal 0.50-2.80 [facility] Comment on above: Order Comment: Perfo rmed at: CB - [facility] [address] [id number] Director: Varun Vicente PhD, Phone: [phone] at: BN - [facility] [address] [id number] Director: Isauro Hernandez MD, Phone: [phone] Result Comment: Perf ormed at: BN Performed By: #### F REET3, TSH, SHAUN #### [place] [address] Testosterone [Mass/Vol] 52 ng/dL Normal 13-71 [facility] Comment on above: Order Comment: Perfo rmed at: [address] [id number] Director: Varun Vicente PhD, Phone: [phone] at: [address] [id number] Director: Isauro Hernandez MD, Phone: [phone] Result Comment: Perf ormed at: Performed By: #### F REET3, TSH, SHAUN #### [address] [address] Testosterone,Free 1.33 ng/dL High 0.10-0.85 [facility] Comment on above: Order Comment: Perfo rmed at: [address] [id number] Director: Varun Vicente PhD, Phone: [phone] at: [address] [id number] Director: Isauro Hernandez MD, Phone: [phone] Result Comment: Perf ormed at: Performed By: #### F REET3, TSH, SHAUN #### [address] [address] DHEA SO4on 03-03-2021 DHEA-Sulfate 346.0 ug/dL Normal 110.0-431.7 [facility] Comment on above: Order Comment: Perfo rmed at: [address] [id number] Director: Varun Vicente PhD, Phone: [phone] Performed By: #### F REET4, TSH, FREET3 #### [address] [address] Prolactinon 03-03-2021 Prolactin 4.6 ng/mL Low 4.8-23.3 [facility] Comment on above: Order Comment: Perfo rmed at: [address] [id number] Director: Varun Vicente PhD, Phone: [phone] Performed By: #### F REET4, TSH, FREET3 #### [facility] [address] [place], [place] [id number] CBC without Diffon Erythrocyte distribution width (RBC) [Ratio] 13.0 % Normal 11.1-15.3 [facility] Comment on above: Performed By: #### F REET3, TSH, SHAUN #### [facility] [address] [place], [place] [phone] Hematocrit (Bld) [Volume fraction] 38.9 % Normal 34.6-45.0 [facility] Comment on above: Performed By: #### F REET3, TSH, SHAUN #### [facility] [address] [place], [place] [id number] Hemoglobin (Bld) [Mass/Vol] 13.0 g/dL Normal 11.5-15.5 [facility] Comment on above: Performed By: #### F REET3, TSH, SHAUN #### [facility] [address] [place] [address] MCH (RBC) [Entitic mass] 27.8 pg Normal 27.2-33.6 [facility] Comment on above: Performed By: #### F REET3, TSH, SHAUN #### [facility] [address] [place], [place] [phone] MCHC (RBC) [Mass/Vol] 33.3 g/dL Normal 32.9-35.3 [facility] Comment on above: Performed By: #### F REET3, TSH, SHAUN #### [facility] [address] [place], [place] [phone] MCV (RBC) [Entitic vol] 83.4 fL Normal 81.3-96.7 [facility] Comment on above: Performed By: #### F REET3, TSH, SHAUN #### [facility] [address] [place], [place] [phone] Platelet mean volume (Bld) [Entitic vol] 8.8 fL Normal 6.4-10.0 [facility] Comment on above: Performed By: #### F REET3, TSH, SHAUN #### [facility] [address] [place] [address] PLT 226 x(10)3/cumm Normal 138-367 [facility] Comment on above: Performed By: #### F REET3, TSH, SHAUN #### [facility] [address] [place] [address] RBC 4.66 X(10)6/cumm Normal 3.90-5.10 [facility] Comment on above: Performed By: #### F REET3, TSH, SHAUN #### [address] [address] WBC 7.4 x(10)3/cumm Normal 3.6-10.3 [facility] Comment on above: Performed By: #### F REET3, TSH, SHAUN #### [address] [address] Iron with TIBCon 03-02-2021 % Saturation 24 % Normal 16-46 [facility] Comment on above: Performed By: #### B HCGQNT #### [address] [address] Iron [Mass/Vol] 73 ug/dL Normal 37-145 [facility] Comment on above: Performed By: #### B HCGQNT #### [place] [id number] TIBC 300 ug/dL Normal 250-450 [facility] Comment on above: Performed By: #### B HCGQNT #### [place] [id number] UIBC 227 ug/dL Normal 112-347 [facility] Comment on above: Performed By: #### B HCGQNT #### [address] [address] Prolactin Dilution Studyon 12-23-2020 Prolactin, Dilution Study 10.8 ng/mL Normal 2.8-26.0 [facility] Comment on above: Result Comment: Dilution series does not indicate the presence of high-dose hook effects. REFERENCE INTERVAL: Prolactin, Dilution Study Access complete set of age- and/or gender-specific reference intervals for this test in the [facility] Laboratory Test Directory ([employer]). Performed By: [employer] [address] [place] [address] Engineering Manager Electronics: Christine Wolfe MD Performed By: #### B HCGQNT #### [facility] [address] [place] [address] Anti Microsomal Ab (TPO)on 0 12-22-2020 Thyroid Peroxidase (TPO) Ab 17 IU/mL Normal 0-34 [facility] Comment on above: Order Comment: Perfo rmed at: - [facility] [address] [id number] Load Builder: Varun Vicente PhD, Phone: [phone] Performed By: #### A MICRAB, PROLACT #### [facility] RESULTS Prolactinon 12-22-2020 Prolactin 15.4 ng/mL Normal 4.8-23.3 [facility] Comment on above: Order Comment: Perfo rmed at: Testif - [facility] [address] [id number] Director: Varun Vicente PhD, Phone: [phone] Performed By: #### F REET3, TSH, SHAUN #### [facility] [address] [place] [address] Alpha-Subunit PGHon 12-01-19 21 Alpha Subunit (Free) 0.60 ng/mL Normal [facility] Comment on above: Order Comment: Perfo rmed at: ES - [employer] [facility] [place], [place] [id number] Director: David Pastor MD, Phone: [phone] Result Comment: This test was developed and its performance characteristics determined by [employer]. It has not been cleared or approved by the Food and Drug Administration. Reference Range: Premenopausal (20-44y): <1.02 Adult serum alpha subunit (ASU) levels gradually increase with age. As with all tumor markers, the ASU results should be assessed in conjunction with patient's medical history, clinical examination and other findings. If test results are clinically discordant, please contact the laboratory. is associated with very substantial physiological elevations in serum ASU levels, paralleling chorionic gonadotropin (hCG) secretion. Elevated ASU values should be interpreted in the context of status. Performed By: #### F REET3, TSH, SHAUN #### [facility] [address] [place] [address] Insulin-like Growth Factoron 11-28-2020 IGF-I, LC/MS 181 ng/mL Normal 83-456 [facility] Comment on above: Performed By: #### F REET3, TSH, SHAUN #### [facility] [address] [place] [address] Z-Score (Female) -0.3 SD Normal 2.0 +2.0 [facility] Comment on above: Result Comment: This test was developed and its analytical performance characteristics have been determined by [employer] [facility]. It has not been cleared or approved by FDA. This assay has been validated pursuant to the CLIA regulations and is used for clinical purposes. Test performed by [employer] [address] [address] Co Founder And Cto: Rasheeda Mercedes MD,PHD,ADAM Test Reported by [facility], [employer] [facility], [address] [place] [address] Mat Mccallum M.D., Ph.D., Director of Laboratories , CLIA [id number] Performed By: #### F REET3, TSH, SHAUN #### [facility] [address] [place] [address] Z-Score (Male) DNR Normal [facility] Comment on above: Performed By: #### F REET3, TSH, SHAUN #### [facility] [address] [place] [address] Luteinizing Hormoneon 2020 LH, Serum 11.6 mIU/mL Normal [facility] Comment on above: Result Comment: Unable to flag abnormal result(s), please refer to reference range(s) below: Adult Female reference ranges for LH: Follicular Phase: 1.9-12.5 mIU/mL Mid-Cycle Peak: 8.7-76.3 mIU/mL Luteal Phase: 0.5-16.9 mIU/mL Postmenopausal: 10.0-54.7 mIU/mL Test Performed by [facility], [employer], [address] [place], [place] Mat Mccallum M.D., Ph.D., Director of Laboratories , CLIA [id number] Performed By: #### F REET3, TSH, SHAUN #### [facility] [address] [place] [address] Estradiol / E2on 11-26-2020 Estradiol 190 pg/mL Normal [facility] Comment on above: Result Comment: Unable to flag abnormal result(s), please refer to reference range(s) below: Females: Follicular Phase: 19 - 144 pg/mL Mid-Cycle: 64 - 357 pg/mL Luteal Phase: 56 - 214 pg/mL Post-Menopausal: <= 31 pg/mL Reference range established on post-pubertal patient population. No pre-pubertal reference range established using this assay. For any patients for whom low Estradiol levels are anticipated (e.g. males, pre-pubertal children, and hypogonadal/post-menopausal females), the [employer] Estradiol, Ultrasensitive, LCMSMS assay is recommended (order code 84418). Please note: Patients being treated with the drug fulvestrant [Faslodex(R)] have demonstrated significant interference in immunoassay methods for estradiol measurement. The cross reactivity could lead to falsely elevated estradiol test results leading to an inappropriate clinical assessment of estrogen status. [employer] order code 72471-[id number], Ultrasensitive LC/MS/MS demonstrates negligible cross reactivity with fulvestrant. Test Performed by [facility] [employer], [address] [place], [place] Mat Mccallum M.D., Ph.D., Director of Laboratories , CLIA [id number] Performed By: #### E STRADL #### [facility] [address] [place] [address] ACTHon 11-25-2020 ACTH, Plasma 25.6 pg/mL Normal 7.2-63.3 [facility] Comment on above: Order Comment: Perfo rmed at: [facility] [employer] [id number] Director: Varun Vicente PhD, Phone: [phone] Result Comment: ACTH reference interval for samples collected between 7 and 10 AM. Performed By: #### B HCGQNT #### [address] [address] DHEA SO4on 11-25-2020 DHEA-Sulfate 401.0 ug/dL Normal 110.0-431.7 [facility] Comment on above: Order Comment: Perfo rmed at: [address] [id number] Director: Varun Vicente PhD, Phone: [phone] Performed By: #### F REET3, TSH, SHAUN #### [address] [address] Follicle Stimulating Hormone on 11-25-2020 FSH 6.8 mIU/mL Normal [facility] Comment on above: Order Comment: Perfo rmed at: [address] [id number] Director: Varun Vicente PhD, Phone: [phone] Result Comment: Adul t Female: Follicular phase 3.5 - 12.5 Ovulation phase 4.7 - 21.5 Luteal phase 1.7 - 7.7 Postmenopausal 25.8 - 134.8 Performed By: #### F REET3, TSH, SHAUN #### [address] [address] Prolactinon 11-25-2020 Prolactin 25.5 ng/mL High 4.8-23.3 [facility] Comment on above: Order Comment: Perfo rmed at: [facility] [employer] [id number] Director: Varun Vicente PhD, Phone: [phone] Performed By: #### B HCGQNT #### [address] [address] B-HCG Quantitativeon 021 B-HCG Gest REF RANGE INTERPRETA TION Non- Female <=1 mIU/mL Post menopausal Female <=7 mIU/mL Male < 2 mIU/mL B-HCG GESTATIONAL AGE 3 Weeks 5.8-71.2 mIU/mL 4 Weeks 9.5-750 mIU/mL 5 Weeks 217-7138 mIU/mL 6 Weeks 158-75019 mIU/mL 7 Weeks 3697-949472 mIU/mL 8 Weeks 92179-213086 mIU/mL 9 Weeks 27137-581962 mIU/mL 10 Weeks 95085-170165 mIU/mL 12 Weeks 10770-479610 mIU/mL 14 Weeks 12163-85178 mIU/mL 15 Weeks 35516-83852 mIU/mL 16 Weeks 9040-37323 mIU/mL 17Weeks 8175-29297 mIU/mL 18 Weeks 8099-95815 mIU/mL Invalid Interpretation Code [facility] Comment on above: Performed By: #### B HCGQNT #### [place] [id number] B-HCG Quant <0.10 Normal <=1.00 [facility] Comment on above: Performed By: #### B HCGQNT #### [place] [id number] Biotin Interference Samples should not b e taken from patients receiving therapy with high biotin doses (i.e. >5mg/day) until at least 8 hours following the last biotin administration. [facility] Comment on above: Performed By: #### B HCGQNT #### [place] [id number] Performed By: #### F REET4, TSH, FREET3 #### [address] [address] Cortisol Totalon 11-23-2020 Cortisol 6.6 ug/mL [facility] Comment on above: Performed By: #### B HCGQNT #### [address] [address] Cortisol Ref Range AM CORTISOL 6.2 - 19 .4 PM CORTISOL 2.3 - 11.9 [facility] Comment on above: Performed By: #### B HCGQNT #### [place] [id number] Free T3on 11-23-2020 Free T3 [Mass/Vol] 3.30 pg/mL Normal 2.00-4.40 [facility] Comment on above: Performed By: #### F REET4, TSH, FREET3 #### [place] [id number] Free T4on 11-23-2020 Free T4 [Mass/Vol] 0.99 ng/dL Normal 0.93-1.70 [facility] Comment on above: Performed By: #### F REET4, TSH, FREET3 #### [place] [address] TSHon 11-23-2020 TSH 1.65 uIU/mL Normal 0.27-4.20 [facility] Comment on above: Performed By: #### F REET4, TSH, FREET3 #### [place] [address] MRI Brain w/wo contraston MRI Brain w/wo contrast CLINICAL INFORMATION: Enlarged pituitary gland. Worsening headaches. FLAIR, T2, and diffusion-weighted axial images, and T1 sagittal images of the brain are obtained prior to IV contrast. Subsequently, after 4.5 ml IV Magnevist, T1 axial images are repeated. In addition, thin cut coronal and axial images are obtained through the sella both before and after IV contrast. The examination is compared to a previous study dated 10/02/2020. FINDINGS: The ventricles are within normal limits in respect to their size and configuration. There is no evidence of mass or mass-effect. There are no abnormal intra- or extra-axial fluid collections. Thin cuts through the sella demonstrate a diffusely enlarged anterior pituitary gland. This measures approximately 1 cm in diameter. The gland homogeneously enhances. No regional hypoenhancing lesions are appreciated. The stalk is mildly deviated to the right. The enlarged pituitary does not encroach on the adjacent optic chiasm. The paranasal sinuses and mastoid air cells are clear. After IV contrast, there are no regions of abnormal enhancement. IMPRESSION: 1. Diffusely enlarged anterior pituitary as described. No discrete pituitary mass lesions are seen. 2. Though the pituitary is enlarged, it does not significantly encroach on nor impress on the adjacent optic chiasm. 3. The pituitary stalk is very mildly deviated to the right. Report Dictated on Authenticated by: Omkar Roth On: 10/25/2020 22:53 Read by: OMKAR ROTH MD Date: 10/25/2020 22:53 [facility] Comment on above: Order Comment: CONTR AST PER RADIOLOGIST DISCRETION COVID-19on 10-23-2020 SARS-CoV-2 Not Detected. Not Detected [facility] Work Phone: Comment on above: Not Detected. Expected Result: Not Detected _ Real-time, RT-PCR performed on the [employer] System by the [facility] Negative results do not preclude SARS-CoV-2 infection and should not be used as the sole basis for treatment or other patient management decisions. This assay was developed by [employer] and distributed under an Emergency Use Authorization (EUA) granted by the FDA for the qualitative detection of SARS-CoV-2 nucleic acid. Provider and patient fact sheets can be found at https://www.fda.gov/media/527187/download and https://www.fda.gov/media/202013/download. Test Performed by [employer], [address] [place] [address] [id number] 10-23-2020 SARS-CoV-2 SARS-CoV-2 --> Statu s: F Not Detected. Expected Result: Not Detected _ Real-time, RT-PCR performed on the [employer] System by the [facility] Negative results do not preclude SARS-CoV-2 infection and should not be used as the sole basis for treatment or other patient management decisions. This assay was developed by [employer] and distributed under an Emergency Use Authorization (EUA) granted by the FDA for the qualitative detection of SARS-CoV-2 nucleic acid. Provider and patient fact sheets can be found at https://www.fda.gov/medi a/487647/download and https://www.fda.gov/medi a/413194/download. Expected Result: Not Detected _ Real-time, RT-PCR performed on the [employer] System by the [facility] Microbiology Service Negative results do not preclude SARS-CoV-2 infection and should not be used as the sole basis for treatment or other patient management decisions. This assay was developed by [employer] and distributed under an Emergency Use Authorization (EUA) granted by the FDA for the qualitative detection of SARS-CoV-2 nucleic acid. Provider and patient fact sheets can be found at https://www.fda.gov/medi a/217803/download and https://www.fda.gov/medi a/816672/download. Normal [facility] Comment on above: Performed By: #### C OVID #### [address] [address] DIPSTICKon 02-19-2018 Bilirubin (direct) Negative Normal NEGATIVE [facility] Comment on above: Order Comment: Charlee GAN Performed By: #### L 600.30911 ####[address] [address]JP# [phone] POC APPEARANCE CLEAR Normal CLEAR [facility] Comment on above: Order Comment: Charlee hill: MALIK Performed By: #### L 600.37672 ####[address] [address]SE# [phone] POC BLOOD Negative Normal NEGATIVE [facility] Comment on above: Order Comment: Charlee hill: MALIK Performed By: #### L 600.00890 ####[address] [address]FQ# [phone] POC COLOR YELLOW Normal [facility] Comment on above: Order Comment: Charlee hill: MALIK Performed By: #### L 600.91999 ####[address] [address]GT# [phone] POC KETONE Negative Normal NEGATIVE [facility] Comment on above: Order Comment: Charlee hill: MALIK Performed By: #### L 600.80765 ####[place] [address] [address] [place], [place] [address]MS# [phone] POC LEUK EST 500 SANDY/uL Normal NEGATIVE [facility] Comment on above: Order Comment: Charlee s: MALIK Performed By: #### L 600.21763 ####[place] [address] [address] [place], [place] [address]CX# [phone] POC NITRITE Negative Normal NEGATIVE [facility] Comment on above: Order Comment: Charlee s: MALIK Performed By: #### L 600.67392 ####[place] [address] [address] [place], [place] [address]EO# [phone] POC SPEC GRAV 1.010 Normal 1.005-1.030 [facility] Comment on above: Order Comment: Charlee s: MALIK Performed By: #### L 600.86837 ####[place] [address] [address] [place], [place] [address]TX# [phone] POC UA GLUCOSE NORMAL Normal NORMAL [facility] Comment on above: Order Comment: Charlee s: MALIK Performed By: #### L 600.57011 ####[address] [place], [place] [address]CR# [phone] POC UA PH 6.5 Normal 5-6 [facility] Comment on above: Order Comment: Charlee s: MALIK Performed By: #### L 600.03251 ####[place] [address] [address] [place], [place] [address]SW# [phone] POC UROBIL NORMAL Normal NORMAL [facility] Comment on above: Order Comment: Charlee s: MALIK Performed By: #### L 600.89773 ####[place] [address] [address] [place], [place] [address]ZF# [phone] Protein Negative Normal NEGATIVE [facility] Comment on above: Order Comment: Charlee hill: MALIK Performed By: #### L 600.81974 ####[facility] [address] [place], [place] [address]BB# [phone] JSon 02-19-2018 [place] [facility] REPORT [facility] DATE OF SERVICE: 02/19/2018CHIEF COMPLAINT: Urinary frequency.HISTORY: This 23-year-old has urine frequency over the past 2 days. The patient hasa little backache but she relates this more to some injury from a fall she sustained2 days ago.PAST HISTORY: Unremarkable.MEDICATIONS :1. Propranolol for migraine headaches.2. Mirtazapine p.r.n.3. Cyclobenzaprine.4. Loestrin.ALLERGIES: Tylenol.PHYSICAL EXAMINATION: Vital Signs: On exam she is afebrile. Vital signs arenormal. Back: There is no CVA tenderness on percussion. Abdomen: Minimalsuprapubic tenderness.Urinalysis positive for leukocyte esterase.IMPRESSION: Urinary tract infection.PLAN: Bactrim DS b.i.d. for 5 days, fluids. Follow up as needed. LENA Poe/[id number]: 02/21/2018 11:19DT: 02/21/2018 13:23SSI File#: [id number] #: [id number]/Reviewed by02/28/18 [facility] PATIENT NAME: ABDULLAHI BEAL [id number] [facility] [address] [place] MEDICAL REC #: [id number] [address] [facility] REPORT [facility] PHYSICIAN Normal [facility] No Panel Information Group B Streptococcus Culture Group B Beta Streptococcus is not isolated. [facility] Work Phone: Vital Signs Date Time Vital Sign Value Performing Clinician Varun mcneill 11-20-2023 08:06-0400 Body height 160.02 cm No Primary Care Physician [facility] 11-20-2023 08:04-0400 Body mass index (BMI) [Ratio] 33.5 kg/m2 No Primary Care Physician [facility] 11-20-2023 08:04-0400 Body weight 85.72 kg No Primary Care Physician [facility] 11-20-2023 08:04-0400 Diastolic blood pressure 88 mm[Hg] No Primary Care Physician [facility] 11-20-2023 08:04-0400 Systolic blood pressure 132 mm[Hg] No Primary Care Physician [facility] 03-21-2022 10:29-0400 Body height 160.02 cm PEDIATRIC OPHTHALMOLOGIST-C Angela David PEDIATRIC OPHTHALMOLOGIST Work Phone: [facility] Work Phone: 03-21-2022 10:29-0400 Body mass index (BMI) [Ratio] 32.5 kg/m2 PEDIATRIC OPHTHALMOLOGIST-C Angela Shirley PEDIATRIC OPHTHALMOLOGIST Work Phone: [facility] Work Phone: 03-21-2022 10:29-0400 Body weight 83.46 kg PEDIATRIC OPHTHALMOLOGIST-C Angela Shirley PEDIATRIC OPHTHALMOLOGIST Work Phone: [facility] Work Phone: 03-21-2022 10:29-0400 Diastolic blood pressure 70 mm[Hg] PEDIATRIC OPHTHALMOLOGIST-C Angela Shirley PEDIATRIC OPHTHALMOLOGIST Work Phone: [facility] Work Phone: 03-21-2022 10:29-0400 Systolic blood pressure 110 mm[Hg] PEDIATRIC OPHTHALMOLOGIST-C Angela David PEDIATRIC OPHTHALMOLOGIST Work Phone: [facility] Work Phone: 03-09-2022 08:35-0400 Body temperature 97.6 [degF] Dr. Nay Mckinney Work Phone: [facility] Work Phone: 03-09-2022 08:35-0400 Diastolic blood pressure 86 mm[Hg] Dr. Nay Mckinney Work Phone: [facility] Work Phone: 03-09-2022 08:35-0400 Heart rate 80 /min Dr. Nay Mckinney Work Phone: [facility] Work Phone: 03-09-2022 08:35-0400 Respiratory rate 16 /min Dr. Nay Mckinney Work Phone: [facility] Work Phone: 03-09-2022 08:35-0400 SaO2% (BldA) [Mass fraction] 98 % Dr. Nay Mckinney Work Phone: [facility] Work Phone: 03-09-2022 08:35-0400 Systolic blood pressure 116 mm[Hg] Dr. Nay Mckinney Work Phone: [facility] Work Phone: 03-05-2022 19:39-0400 Body height 160.[address] Nay Mckinney Work Phone: [facility] Work Phone: 03-05-2022 19:39-0400 Body mass index (BMI) [Ratio] 35.8 kg/m2 Dr. Nay Mckinney Work Phone: [facility] Work Phone: 03-05-2022 19:39-0400 Body weight 91.[address] Nay Mckinney Work Phone: [facility] Work Phone: 03-02-2022 10:26-0400 Body mass index (BMI) [Ratio] 35.2 kg/m2 Dr. Nay Mckinney Work Phone: [facility] Work Phone: 03-02-2022 10:26-0400 Body weight 90.[address] Nay Mckinney Work Phone: [facility] Work Phone: 03-02-2022 10:26-0400 Diastolic blood pressure 76 mm[Hg] Dr. Nay Mckinney Work Phone: [facility] Work Phone: 03-02-2022 10:26-0400 Systolic blood pressure 118 mm[Hg] Dr. Nay Mckinney Work Phone: [facility] Work Phone: 02-23-2022 10:59-0400 Body height 160.[address] Nay Mckinney Work Phone: [facility] Work Phone: 02-23-2022 10:58-0400 Body mass index (BMI) [Ratio] 35 kg/m2 Dr. Nay Mckinney Work Phone: [facility] Work Phone: 02-23-2022 10:58-0400 Body weight 89.[address] Nay Mckinney Work Phone: [facility] Work Phone: 02-09-2022 13:22-0400 Body mass index (BMI) [Ratio] 35 kg/m2 Dr. Nay Mckinney Work Phone: [facility] Work Phone: 02-09-2022 13:22-0400 Body weight 89.[address] Nay Mckinney Work Phone: [facility] Work Phone: 02-09-2022 13:22-0400 Diastolic blood pressure 64 mm[Hg] Dr. Nay Mckinney Work Phone: [facility] Work Phone: 02-09-2022 13:22-0400 Systolic blood pressure 110 mm[Hg] Dr. Nay Mckinney Work Phone: [facility] Work Phone: 02-03-2022 14:43-0400 Body height 160.[address] Amie Martin Work Phone: [facility] Work Phone: 02-03-2022 14:43-0400 Body mass index (BMI) [Ratio] 34.2 kg/m2 Dr. Amie Martin Work Phone: [facility] Work Phone: 02-03-2022 14:43-0400 Body weight 87.[address] Amie Martin Work Phone: [facility] Work Phone: 02-03-2022 14:43-0400 Diastolic blood pressure 78 mm[Hg] Dr. Amie Martin Work Phone: [facility] Work Phone: 02-03-2022 14:43-0400 Systolic blood pressure 128 mm[Hg] Dr. Amie Martin Work Phone: [facility] Work Phone: 01-26-2022 14:19-0400 Body height 160.[address] Amie Martin Work Phone: [facility] Work Phone: 01-26-2022 14:19-0400 Body weight 85.[address] Amie Martin Work Phone: [facility] Work Phone: 01-26-2022 11:50-0400 Body mass index (BMI) [Ratio] 33.5 kg/m2 Dr. Amie Martin Work Phone: [facility] Work Phone: 01-26-2022 11:50-0400 Body weight 85.[address] Amei Martin Work Phone: [facility] Work Phone: 01-26-2022 11:50-0400 Diastolic blood pressure 84 mm[Hg] Dr. Amie Martin Work Phone: [facility] Work Phone: 01-26-2022 11:50-0400 Systolic blood pressure 110 mm[Hg] Dr. Amie Martin Work Phone: [facility] Work Phone: 01-19-2022 13:51-0400 Body temperature 99 [degF] Dr. Amie Martin Work Phone: [facility] Work Phone: 01-19-2022 13:51-0400 Diastolic blood pressure 78 mm[Hg] Dr. Amie Martin Work Phone: [facility] Work Phone: 01-19-2022 13:51-0400 Heart rate 82 /min Dr. Amie Martin Work Phone: [facility] Work Phone: 01-19-2022 13:51-0400 Systolic blood pressure 126 mm[Hg] Dr. Amie Martin Work Phone: [facility] Work Phone: 01-19-2022 07:29-0400 Body temperature 98.1 [degF] Dr. Amie Martin Work Phone: [facility] Work Phone: 01-19-2022 07:28-0400 SaO2% (BldA) [Mass fraction] 99 % Dr. Amie Martin Work Phone: [facility] Work Phone: 01-18-2022 17:21-0400 Body height 160.[address] Amie Martin Work Phone: [facility] Work Phone: 01-18-2022 17:21-0400 Body mass index (BMI) [Ratio] 34 kg/m2 Dr. Amie Martin Work Phone: [facility] Work Phone: 01-18-2022 17:21-0400 Body weight 87.[address] Amie Martin Work Phone: [facility] Work Phone: 01-18-2022 15:24-0400 Body mass index (BMI) [Ratio] 34.2 kg/m2 Dr. Amie Martin Work Phone: [facility] Work Phone: 01-18-2022 15:24-0400 Body weight 87.[address] Amie Martin Work Phone: [facility] Work Phone: 01-18-2022 15:24-0400 Diastolic blood pressure 80 mm[Hg] Dr. Amie Martin Work Phone: [facility] Work Phone: 01-18-2022 15:24-0400 Systolic blood pressure 112 mm[Hg] Dr. Amie Martin Work Phone: [facility] Work Phone: 01-17-2022 15:12-0400 Body weight 87.[address] Amie Martin Work Phone: [facility] Work Phone: 01-13-2022 16:45-0400 Body mass index (BMI) [Ratio] 34.2 kg/m2 Dr. Amie Martin Work Phone: [facility] Work Phone: 01-13-2022 16:45-0400 Body temperature 98.2 [degF] Dr. Amie Martin Work Phone: [facility] Work Phone: 01-13-2022 16:45-0400 Body weight 87.[address] Amie Martin Work Phone: [facility] Work Phone: 01-13-2022 16:45-0400 Diastolic blood pressure 78 mm[Hg] Dr. Amie Martin Work Phone: [facility] Work Phone: 01-13-2022 16:45-0400 Heart rate 91 /min Dr. Amie Martin Work Phone: [facility] Work Phone: 01-13-2022 16:45-0400 Respiratory rate 16 /min Dr. Amie Martin Work Phone: [facility] Work Phone: 01-13-2022 16:45-0400 SaO2% (BldA) [Mass fraction] 98 % Dr. Amie Martin Work Phone: [facility] Work Phone: 01-13-2022 16:45-0400 Systolic blood pressure 124 mm[Hg] Dr. Amie Martin Work Phone: [facility] Work Phone: 01-12-2022 09:53-0400 Body mass index (BMI) [Ratio] 34.3 kg/m2 Dr. Amie Martin Work Phone: [facility] Work Phone: 01-12-2022 09:53-0400 Body weight 87.[address] Amie Martin Work Phone: [facility] Work Phone: 01-12-2022 09:53-0400 Diastolic blood pressure 77 mm[Hg] Dr. Amie Martin Work Phone: [facility] Work Phone: 01-12-2022 09:53-0400 Systolic blood pressure 111 mm[Hg] Dr. Amie Martin Work Phone: [facility] Work Phone: 01-10-2022 16:27-0400 Body height 160.[address] Amie Martin Work Phone: [facility] Work Phone: 01-10-2022 16:27-0400 Body weight 86.[address] Amie Martin Work Phone: [facility] Work Phone: 12-28-2021 13:28-0400 Body mass index (BMI) [Ratio] 34.5 kg/m2 Dr. Amie Martin Work Phone: [facility] Work Phone: 12-28-2021 13:28-0400 Body weight 88.[address] Amie Martin Work Phone: [facility] Work Phone: 12-28-2021 13:28-0400 Diastolic blood pressure 62 mm[Hg] Dr. Amie Martin Work Phone: [facility] Work Phone: 12-28-2021 13:28-0400 Systolic blood pressure 118 mm[Hg] Dr. Amie Martin Work Phone: [facility] Work Phone: 12-28-2021 13:28-0400 Body height 160.[address] Amie Martin Work Phone: [facility] Work Phone: 12-28-2021 13:28-0400 Body mass index (BMI) [Ratio] 34.5 kg/m2 Dr. Amie Martin Work Phone: [facility] Work Phone: 12-28-2021 13:28-0400 Body weight 88.[address] Amie Martin Work Phone: [facility] Work Phone: 12-28-2021 13:28-0400 Diastolic blood pressure 62 mm[Hg] Dr. Amie Martin Work Phone: [facility] Work Phone: 12-28-2021 13:28-0400 Systolic blood pressure 118 mm[Hg] Dr. Amie Martin Work Phone: [facility] Work Phone: 12-08-2021 11:16-0400 Body mass index (BMI) [Ratio] 33.1 kg/m2 Dr. Amie Martin Work Phone: [facility] Work Phone: 12-08-2021 11:16-0400 Body weight 84.[address] Amie Martin Work Phone: [facility] Work Phone: 12-08-2021 11:16-0400 Diastolic blood pressure 80 mm[Hg] Dr. Amie Martin Work Phone: [facility] Work Phone: 12-08-2021 11:16-0400 Systolic blood pressure 124 mm[Hg] Dr. Amie Martin Work Phone: [facility] Work Phone: 12-08-2021 11:16-0400 Body mass index (BMI) [Ratio] 33.1 kg/m2 Dr. Amie Martin Work Phone: [facility] Work Phone: 12-08-2021 11:16-0400 Body weight 84.[address] Amie Martin Work Phone: [facility] Work Phone: 12-08-2021 11:16-0400 Diastolic blood pressure 80 mm[Hg] Dr. Amie Martin Work Phone: [facility] Work Phone: 12-08-2021 11:16-0400 Systolic blood pressure 124 mm[Hg] Dr. Amie Martin Work Phone: [facility] Work Phone: 11-12-2021 14:38-0400 Body mass index (BMI) [Ratio] 32.1 kg/m2 Dr. Amie Martin Work Phone: [facility] Work Phone: 11-12-2021 14:38-0400 Body weight 82.[address] Amie Martin Work Phone: [facility] Work Phone: 11-12-2021 14:38-0400 Diastolic blood pressure 80 mm[Hg] Dr. Amie Martin Work Phone: [facility] Work Phone: 11-12-2021 14:38-0400 Systolic blood pressure 102 mm[Hg] Dr. Amie Martin Work Phone: [facility] Work Phone: 11-12-2021 14:38-0400 Body mass index (BMI) [Ratio] 32.1 kg/m2 Dr. Amie Martin Work Phone: [facility] Work Phone: 11-12-2021 14:38-0400 Body weight 82.[address] Amie Martin Work Phone: [facility] Work Phone: 11-12-2021 14:38-0400 Diastolic blood pressure 80 mm[Hg] Dr. Amie Martin Work Phone: [facility] Work Phone: 11-12-2021 14:38-0400 Systolic blood pressure 102 mm[Hg] Dr. mAie Martin Work Phone: [facility] Work Phone: 10-15-2021 11:36-0500 Body mass index (BMI) [Ratio] 31.8 kg/m2 Dr. Amie Martin Work Phone: [facility] Work Phone: 10-15-2021 11:36-0500 Body weight 81.[address] Amie Martin Work Phone: [facility] Work Phone: 10-15-2021 11:36-0500 Diastolic blood pressure 88 mm[Hg] Dr. Amie Martin Work Phone: [facility] Work Phone: 10-15-2021 11:36-0500 Systolic blood pressure 122 mm[Hg] Dr. Amie Martin Work Phone: [facility] Work Phone: 10-15-2021 10:36-0500 Body mass index (BMI) [Ratio] 31.8 kg/m2 Dr. Amie Martin Work Phone: [facility] Work Phone: 10-15-2021 10:36-0500 Body weight 81.[address] Amie Martin Work Phone: [facility] Work Phone: 10-15-2021 10:36-0500 Diastolic blood pressure 88 mm[Hg] Dr. Amie Martin Work Phone: [facility] Work Phone: 10-15-2021 10:36-0500 Systolic blood pressure 122 mm[Hg] Dr. Amie Martin Work Phone: [facility] Work Phone: 09-17-2021 10:21-0500 Body mass index (BMI) [Ratio] 30.9 kg/m2 Dr. Amie Martin Work Phone: [facility] Work Phone: 09-17-2021 10:21-0500 Body weight 79.[address] Amie Martin Work Phone: [facility] Work Phone: 09-17-2021 10:21-0500 Diastolic blood pressure 84 mm[Hg] Dr. Amie Martin Work Phone: [facility] Work Phone: 09-17-2021 10:21-0500 Systolic blood pressure 124 mm[Hg] Dr. Amie Martin Work Phone: [facility] Work Phone: 09-09-2021 12:39-0500 Body temperature 96.5 [degF] Dr. Amie Martin Work Phone: [facility] Work Phone: 09-09-2021 12:39-0500 Diastolic blood pressure 66 mm[Hg] Dr. Amie Martin Work Phone: [facility] Work Phone: 09-09-2021 12:39-0500 Heart rate 75 /min Dr. Amie Martin Work Phone: [facility] Work Phone: 09-09-2021 12:39-0500 Respiratory rate 16 /min Dr. Amie Martin Work Phone: [facility] Work Phone: 09-09-2021 12:39-0500 SaO2% (BldA) [Mass fraction] 100 % Dr. Amie Martin Work Phone: [facility] Work Phone: 09-09-2021 12:39-0500 Systolic blood pressure 122 mm[Hg] Dr. Amie Martin Work Phone: [facility] Work Phone: 09-09-2021 10:30-0500 Body mass index (BMI) [Ratio] 30.2 kg/m2 Dr. Amie Martin Work Phone: [facility] Work Phone: 09-09-2021 10:30-0500 Body weight 77.[address] Amie Martin Work Phone: [facility] Work Phone: 09-09-2021 10:30-0500 Diastolic blood pressure 90 mm[Hg] Dr. Amie Martin Work Phone: [facility] Work Phone: 09-09-2021 10:30-0500 Systolic blood pressure 122 mm[Hg] Dr. Amie Martin Work Phone: [facility] Work Phone: 08-31-2021 20:31-0500 Diastolic blood pressure 77 mm[Hg] HERBERT WHALEN DO [facility] 08-31-2021 20:31-0500 Heart rate 70 /min HERBERT WHALEN DO [facility] 08-31-2021 20:31-0500 Mean blood pressure 89 mm[Hg] HERBERT WHALEN DO [facility] 08-31-2021 20:31-0500 Respiratory rate 16 /min HERBERT WHALEN DO [facility] 08-31-2021 20:31-0500 Systolic blood pressure 112 mm[Hg] HERBERT WHALEN DO [facility] 08-31-2021 17:15-0500 Diastolic blood pressure 72 mm[Hg] HERBERT WHALEN DO [facility] 08-31-2021 17:15-0500 Heart rate 71 /min HERBERT WHALEN DO [facility] 08-31-2021 17:15-0500 Mean blood pressure 87 mm[Hg] HERBERT WHALEN DO [facility] 08-31-2021 17:15-0500 Respiratory rate 16 /min HERBERT WHALEN DO [facility] 08-31-2021 17:15-0500 Systolic blood pressure 118 mm[Hg] HERBERT WHALEN DO [facility] 08-31-2021 13:23-0500 Body temperature 98.06 [degF] HERBERT WHALEN DO [facility] 08-31-2021 13:23-0500 Body weight 77.3 kg HERBERT WHALEN DO [facility] 08-31-2021 13:23-0500 Diastolic blood pressure 86 mm[Hg] HERBERT WHALEN DO [facility] 08-31-2021 13:23-0500 Heart rate 74 /min HERBERT WHALEN DO [facility] 08-31-2021 13:23-0500 Respiratory rate 16 /min HERBERT WHALEN DO [facility] 08-31-2021 13:23-0500 Systolic blood pressure 128 mm[Hg] HERBERT WHALEN DO [facility] Encounters Encounter Date Encounter Type Care Provider Facility Start: 05-19-2025 End: 05-19-2025 ambulatory KEVIN GUPTA ACCOUNTING REPRESENTATIVE-CORPORATE SPECIALIST Facility:A Start: 03-20-2025 End: 03-20-2025 ambulatory KEVIN GUPTA ACCOUNTING REPRESENTATIVE-CORPORATE SPECIALIST Facility:A Start: 07-01-2024 End: 07-01-2024 ambulatory Amie Martin Facility:[facility] Start: 06-29-2024 End: 06-29-2024 ambulatory KEVIN GUPTA ACCOUNTING REPRESENTATIVE-CORPORATE SPECIALIST Facility:A Start: 06-03-2024 End: 06-03-2024 ambulatory No Primary Care Physician Facility:[facility] Start: 03-18-2024 End: 03-18-2024 ambulatory No Primary Care Physician Facility:[facility] Start: 12-28-2023 End: 01-22-2024 ambulatory OMKAR LOZANO DO Facility:A Start: 12-25-2023 End: 12-25-2023 ambulatory Amie Martin Facility:[facility] Start: 12-02-2023 End: 12-02-2023 ambulatory No Primary Care Physician [facility] Work Phone: Start: 12-02-2023 End: 12-02-2023 Patient encounter procedure No Primary Care Physician [facility] Work Phone: Start: 12-02-2023 End: 12-02-2023 ambulatory Amie Martin Facility:[facility] Start: 11-20-2023 End: 11-20-2023 Patient encounter procedure No Primary Care Physician [facility] Work Phone: Start: 11-20-2023 End: 11-20-2023 ambulatory Amie Martin Facility:[facility] Start: 11-04-2023 End: 11-04-2023 ambulatory KEVIN GUPTA ACCOUNTING REPRESENTATIVE-CORPORATE SPECIALIST Facility:A Start: 11-04-2023 End: 11-04-2023 Patient encounter procedure KEVIN GUPTA ACCOUNTING REPRESENTATIVE-CORPORATE SPECIALIST [facility] Start: 10-23-2023 End: 10-23-2023 ambulatory KEVIN GUPTA ACCOUNTING REPRESENTATIVE-CORPORATE SPECIALIST Facility:A Start: 03-21-2022 End: 03-21-2022 Patient encounter procedure PEDIATRIC OPHTHALMOLOGIST-C Angela Hernandez PEDIATRIC OPHTHALMOLOGIST Work Phone: [facility] Start: 03-14-2022 End: 03-14-2022 Patient encounter procedure PEDIATRIC OPHTHALMOLOGIST-C Angela Hernandez PEDIATRIC OPHTHALMOLOGIST Work Phone: [facility] Start: 03-09-2022 Non-patient / Non-visit Dr. Nay Mckinney Work Phone: [facility] Start: 03-08-2022 Non-patient / Non-visit Dr. Nay Mckinney Work Phone: [facility] Start: 03-07-2022 Non-patient / Non-visit Dr. Nay Mckinney Work Phone: [facility] Start: 03-06-2022 Non-patient / Non-visit Dr. Nay Mckinney Work Phone: [facility] Start: 03-05-2022 Non-patient / Non-visit Dr. Nay Mckinney Work Phone: [facility] Start: 03-05-2022 End: 03-09-2022 Evaluation and management of inpatient [facility] Start: 03-02-2022 End: 03-02-[address] Nay Mckinney Work Phone: [facility] Start: 02-24-2022 End: 02-24-[address] Nay Mckinney Work Phone: [facility] Start: 02-23-2022 End: 02-23-[address] Nay Mckinney Work Phone: [facility] Start: 02-09-2022 End: 02-09-[address] Nay Mckinney Work Phone: [facility] Start: 02-03-2022 End: 02-03-[address] Amie Martin Work Phone: [facility] Start: 01-27-2022 End: 01-27-[address] Amie Martin Work Phone: [facility] Start: 01-26-2022 End: 01-26-[address] Amie Martin Work Phone: [facility] Start: 01-26-2022 End: 02-03-[address] Amie Martin Work Phone: [facility] Start: 01-26-[address] [facility] Start: 01-19-2022 Non-patient / Non-visit Dr. Amie Martin Work Phone: [facility] Start: 01-18-2022 Non-patient / Non-visit Dr. Amie Martin Work Phone: [facility] Start: 01-18-2022 End: 01-19-[address] Amie Martin Work Phone: [facility] Start: 01-17-[address] Ivania Martin [facility] Start: 01-13-2022 End: 01-13-[address] Amie Martin Work Phone: [facility] Endocr[facility] Start: 01-12-2022 End: 01-12-[address] Amie Martin Work Phone: [facility] Start: 01-10-[address] Ivan[facility] Martin [facility] Start: 01-05-2022 End: 01-05-[address] Amie Martin Work Phone: [facility] Start: 12-28-2021 End: 12-28-[address] Amie Martin [facility] Phone[facility] Start: 12-08-2021 End: 12-08-[address] Amie Martin Work Phone: [facility] Start: 11-12-2021 End: 11-12-[address] Amie Martin Work Phone: [facility] Start: 10-15-2021 End: 10-15-[address] Amie Martin Work Phone: [facility] Start: 09-17-2021 End: 09-17-[address] Amie Martin Work Phone: [facility] Start: 09-09-2021 End: 09-09-[address] Amie Martin Work Phone: [facility] Start: 08-31-2021 End: 08-31-2021 Emergency department patient visit HERBERT WHALEN [facility] Start: 06-24-2021 End: 06-25-[address] [facility] Start: 05-31-2021 End: 06-01-2021 ambulatory [facility] Start: 05-22-2021 End: 05-23-2021 ambulatory [facility] Start: 03-17-2021 End: 03-17-2021 [facility] Start: 03-02-2021 End: 03-03-2021 [facility] Start: 12-21-2020 End: 12-22-[address] [facility] Start: 11-23-2020 End: 11-24-[address] [facility] Start: 10-28-2020 End: 10-29-2020 Subsequent hospital visit by physician [facility] Loza [facility] Start: 10-24-2020 End: 10-24-2020 [facility] [facility] Start: 10-23-2020 End: 10-23-2020 Subsequent hospital visit by physician Frank Sanchez [facility] Phone: [facility] Start: 02-19-2018 Patient encounter Arjun garcia:[facility] Procedures Date Procedure Procedure Detail Performing Clinician Start: 02-24-2022 Ultrasound scan for growth Dr. Nay Mckinney Work Phone: Start: 01-27-2022 Ultrasound scan for growth Dr. Amie Martin Work Phone: Start: 01-19-2022 Ultrasonography for biophysical profile without non-stress testing Dr. Amie Martin Work Phone: Start: 01-18-2022 Ultrasonography for biophysical profile without non-stress testing Dr. Amie Martin Work Phone: Start: 10-23-2020 COVID-19 Frank Sanchez Work Phone: Start: 05-07-2019 Date of last papanicolaou test (observable entity) HERBERT WHALEN DO Start: 08-07-2016 Structure of wisdom tooth (body structure) HERBERT WHALEN DO Group B Streptococcu s Culture Dr. Nay Mckinney Work Phone: H/O: section Status pos t delivery Dr. Nay Mckinney Work Phone: Viral antigen assay Dr. Isac Mckinney Work Phone: Plan of Treatment Date Care Activity Detail Author Start: 03-09-2022 Patient discharge [facility] Work Phone: Start: 03-09-2022 [facility] Work Phone: Start: 03-07-2022 Application of abdominal corset [facility] Work Phone: Start: 03-06-2022 End: 03-07-2022 [facility] Work Phone: Start: 03-06-2022 Notification of physician [facility] Work Phone: Start: 03-06-2022 Administration of medication [facility] Work Phone: Start: 03-06-2022 Ambulation therapy management [facility] Work Phone: Start: 03-06-2022 Application of device [facility] Work Phone: Start: 03-06-2022 Application of intermittent pneumatic compression device [facility] Work Phone: Start: 03-06-2022 Assessment of risk of venous thromboembolism [facility] Work Phone: Start: 03-06-2022 Catheterization of vein [facility] Work Phone: Start: 03-06-2022 Deep breathing and coughing exercises [facility] Work Phone: Start: 03-06-2022 Exercises [facility] Work Phone: Start: 03-06-2022 Incentive spirometry [facility] Work Phone: Start: 03-06-2022 Measuring intake and output [facility] Work Phone: Start: 03-06-2022 End: 03-06-2022 Notification of physician [facility] Work Phone: Start: 03-06-2022 Procedure discontinued [facility] Work Phone: Start: 03-06-2022 Provision of activity privileges [facility] Work Phone: Start: 03-06-2022 Vital signs measurements [facility] Work Phone: Start: 03-06-2022 Wound care [facility] Work Phone: Start: 03-06-2022 Application of abdominal corset [facility] Work Phone: Start: 03-06-2022 Admission procedure [facility] Work Phone: Start: 03-06-2022 Consultation [facility] Work Phone: Start: 03-05-2022 Admission procedure [facility] Work Phone: Start: 01-19-2022 Patient discharge [facility] Work Phone: Start: 01-19-2022 Patient discharge [facility] Work Phone: Start: 01-18-2022 Nonstress test [facility] Work Phone: Start: 01-18-2022 Obstetric monitoring [facility] Work Phone: Start: 01-18-2022 Vital signs measurements [facility] Work Phone: Start: 01-18-2022 [facility] Work Phone: Start: 01-18-2022 Iv infusion hydration each additional hour HYDRATE IV INFUSION ADD-ON [facility] Work Phone: Start: 01-18-2022 Ther proph/dx njx ea seql iv push sbst/drug fac TX/PRO/DX INJ SAME DRUG 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 [facility] Work Phone: Start: 01-18-2022 Ther proph/dx njx iv push single/1st sbst/drug THER/PROPH/DIAG INJ IV PUSH [facility] Work Phone: Start: 09-09-2021 Iv infusion hydration each additional hour HYDRATE IV INFUSION ADD-ON [facility] Work Phone: Start: 09-09-2021 Ther proph/dx njx iv push single/1st sbst/drug THER/PROPH/DIAG INJ IV PUSH [facility] Work Phone: Start: 04-07-2020 Influenza vaccination [facility] Work Phone: Patient Education [facility] False Labor OB Triage: Return to Hospital or Notify Physician if you Experience: [facility] Work Phone: Patient referral [facility] Work Phone: Ultrasound scan for growth [facility] Work Phone: [place] [facility] Immunizations Immunization Date Immunization Notes Care Provider Abdias fitch 05-26-2023 influenza virus vacc ine, unspecified formulation KEVIN GUPTA ACCOUNTING REPRESENTATIVE-CORPORATE SPECIALIST [facility] 05-12-2022 influenza virus vacc ine, unspecified formulation KEVIN ALONSO ACCOUNTING REPRESENTATIVE-CORPORATE SPECIALIST [facility] 12-28-2021 tetanus toxoid, redu rick diphtheria toxoid, and acellular pertussis vaccine, adsorbed Dr. Amie Martin Work Phone: [facility] 12-28-2021 diphtheria, tetanus toxoids and acellular pertussis vaccine, unspecified formulation Dr. Amie Martin Work Phone: [facility] Work Phone: 05-02-2021 influenza virus vacc ine, unspecified formulation KEVIN ALONSO ACCOUNTING REPRESENTATIVE-CORPORATE SPECIALIST [facility] 02-04-2021 SARS-CoV-2 (COVID-19 ) mRNA-1273 vaccine KEVIN ALONSO ACCOUNTING REPRESENTATIVE-CORPORATE SPECIALIST [facility] Comment on above: Result Comment: 2023: [facility] 01-08-2021 tetanus toxoid, redu rick diphtheria toxoid, and acellular pertussis vaccine, adsorbed KEVIN ALONSO ACCOUNTING REPRESENTATIVE-CORPORATE SPECIALIST [facility] 01-07-2021 SARS-CoV-2 (COVID-19 ) mRNA-1273 vaccine KEVIN ALONSO ACCOUNTING REPRESENTATIVE-CORPORATE SPECIALIST [facility] Comment on above: Result Comment: 2023: [facility] 06-10-2020 influenza virus vacc ine, unspecified formulation KEVIN ALONSO ACCOUNTING REPRESENTATIVE-CORPORATE SPECIALIST [facility] 06-26-2019 influenza virus vacc ine, unspecified formulation HERBERT WHALEN DO [facility] 09-24-2009 hepatitis A vaccine, pediatric dosage, unspecified formulation HERBERT WHALEN DO [facility] 09-24-2009 Human Papillomavirus Quadval HERBERT WHALEN DO [facility] 03-27-2009 hepatitis A vaccine, pediatric dosage, unspecified formulation HERBERT WHALEN DO [facility] 03-27-2009 hepatitis B pediatri c vaccine HERBERT WHALEN DO [facility] 03-27-2009 Human Papillomavirus Quadval HERBERT WHALEN DO [facility] 03-27-2009 meningococcal polysaccharide (groups A, C, Y and W-135) diphtheria toxoid conjugate vaccine (MCV4P) HERBERT WHALEN DO [facility] 03-27-2009 tetanus toxoid, redu rick diphtheria toxoid, and acellular pertussis vaccine, adsorbed HERBERT WHALEN DO [facility] 09-06-2001 measles/mumps/rubell a virus vaccine HERBERT WHALEN DO [facility] 09-06-2001 poliovirus vaccine, inactivated HERBERT WHALEN DO [facility] 09-06-2001 varicella virus vaccine ALEXANDER WHALEN DO [facility] 01-07-1999 hepatitis B pediatri c vaccine HERBERT WHALEN DO [facility] 11-05-1998 measles/mumps/rubell a virus vaccine HERBERT WHALEN DO [facility] 1997 hepatitis B pediatri c vaccine HERBERT WHALEN DO [facility] 1997 hepatitis B pediatri c vaccine HERBERT WHALEN DO [facility] Payers Date Payer Category Payer Self-pay [id number] 2023 Unknown [id number] 2017 Unknown [id number] 1997 Unknown [id number] 2.16.8 [id number] 1997 Unknown [id number] 2.16.8 [id number] 1997 Unknown [id number] 2.16.8 [id number] 1997 Unknown [id number] 2.16.8 40.1.587482.3.579.2.598 1997 Unknown [id number] 2.16.8 40.1.460965.3.579.2.598 1997 Unknown [id number] 2.16.8 40.1.986230.3.579.2.598 1997 Unknown [id number] 2.16.8 40.1.698936.3.579.2.8 1997 Unknown [id number] 2.16.8 40.1.007225.3.579.2.598 1997 Unknown [id number] 2.16.8 40.1.907100.3.579.2.598 1997 Unknown [id number] 2.16.8 40.1.767023.3.579.2.627 1997 Unknown [id number] 2.16.8 40.1.845488.3.579.2.7 1997 Unknown [id number] 2.16.8 40.1.506219.3.579.2.627 1997 Unknown [id number] 2.16.8 40.1.824113.3.579.2.7 1997 Unknown [id number] 2.16. 840.1.543076.3.579.2.627 1997 Unknown [id number] 2.16. 840.1.862935.3.579.2.627 1959 Unknown [id number] Unknown [id number] 2.16.8 40.1.048800.3.579.2.462 Unknown [id number] 2.16.8 40.1.302447.3.579.2.462 Unknown [id number] 2.16.8 40.1.956321.3.579.2.462 Unknown [id number] 2.16.8 40.1.833873.3.579.2.462 Unknown [id number] 2.16.8 40.1.551592.3.579.2.462 Unknown [id number] 2.16.8 [id number] Social History Date Type Detail Facility [facility] Work Phone: Sex Assigned At Not on file [facility] Work Phone: Start: 01-31-2019 End: 10-23-2023 Never smoked tobacco (finding) [facility] Start: 1995 Sex Assigned At Female A [facility] Start: 12-28-2021 End: 11-20-2023 Tobacco smoking status [facility] Unknown if ever smoked [facility] Medical Equipment Procedure Code Equipment Code Equipment Origin al Text Equipment Identifier Dates Blood Sugar Diagnostic (Truetrack Test) strip Start: 01-05-2022 Lancets Start: 01-05-2022 Blood Sugar Diagnostic (Truetrack Test) strip Start: 01-05-2022 Lancets Start: 01-05-2022 Blood Sugar Diagnostic (Truetrack Test) strip Start: 01-05-2022 Lancets Start: 01-05-2022 Blood Sugar Diagnostic (Truetrack Test) strip Start: 01-05-2022 Lancets Start: 01-05-2022 Blood Sugar Diagnostic (Truetrack Test) strip Start: 01-05-2022 Lancets Start: 01-05-2022 Blood Sugar Diagnostic (Truetrack Test) strip Start: 01-05-2022 Lancets Start: 01-05-2022 Blood Sugar Diagnostic (Truetrack Test) strip Start: 01-05-2022 Lancets Start: 01-05-2022 Blood Sugar Diagnostic (Truetrack Test) strip Start: 01-05-2022 End: 03-21-2022 Lancets Start: 01-05-2022 End: 03-21-2022 Blood Sugar Diagnostic (Truetrack Test) strip Start: 01-05-2022 End: 03-21-2022 Lancets Start: 01-05-2022 End: 03-21-2022 Goals Date Patient Goal Desired Activity /State Functional Status Date Assessment Result Facility 03-06-2022 Functional status Activity Abili ty Bedrest;Post Op [facility] Work Phone: Mental Status Date Assessment Result Facility 09-09-2021 Cognitive function Awake;Alert;A ppropriate;Fol lows Commands [facility] Work Phone: Clinical Notes 08-31-2021 to 11-04-2023 Note Date & Type Note Facility 11-04-2023 Note ORIGINAL EXAMINATION: FIVE XRAY VIEWS OF THE CERVICAL SPINE 11/04/2023 8:18 am COMPARISON: None. HISTORY: ORDERING SYSTEM PROVIDED HISTORY: Reason for Exam: neck pain Cervical pain, lump on posterior neck, no known injury IMPRESSION: Straightening of the cervical spine. Adequate visualization on lateral films to level of C7. No significant spondylolisthesis. Vertebral body heights and disc spaces are maintained. No radiographically visualized soft tissue mass. No soft tissue calcifications. No acute fracture. If clinical concern persists for soft tissue mass can correlate with point of care ultrasound. Interpreted by: Aziza Lujan Preliminary Report By: Aziza Lujan Electronically signed By Aziza Lujan Dictated Date: 11/04/2023 4:00:56 PM Prelim Date: 11/04/2023 4:04:24 PM Sign Date: 11/04/2023 4:04:24 PM Ordering Provider: KEVIN [facility] 08-31-2021 Hospital Discharg e instructions Patient Education 08/31/2021 19:31:58 Diet for Vomiting or Diarrhea (Adult) Diet for Vomiting or Diarrhea (Adult) Your symptoms may return or get worse after eating certain foods listed below. If this happens, stop eating these foods until your symptoms ease and you feel better. Once the vomiting stops, follow the steps below. During the first 12 to 24 hours During the first 12 to 24 hours, follow this diet: Drinks. Plain water, sport drinks like electrolyte solutions, soft drinks without caffeine, mineral water (plain or flavored), clear fruit juices, and decaffeinated tea and coffee. Soups. Clear broth. Desserts. Plain gelatin, popsicles, and fruit juice bars. As you feel better, you may add 6 to 8 ounces of yogurt per day. If you have diarrhea, don't have foods or drinks that contain sugar, high-fructose corn syrup, or sugar alcohols. During the next 24 hours During the next 24 hours you may add the following to the above: Hot cereal, plain toast, bread, rolls, and crackers Plain noodles, rice, mashed potatoes, and chicken noodle or rice soup Unsweetened canned fruit (but not pineapple) and bananas Don't eat more than 15 grams of fat a day. Do this by staying away from margarine, butter, oils, mayonnaise, sauces, gravies, fried foods, peanut butter, meat, poultry, and fish. Don't eat much fiber. Stay away from raw or cooked vegetables, fresh fruits (except bananas), and bran cereals. Limit how much caffeine and chocolate you have. Do not use any spices or seasonings except salt. During the next 24 hours Slowly go back to your normal diet, as you feel better and your symptoms ease. [id number] [employer]. [address] [place] [address], [place] [address]. All rights reserved. This information is not intended as a substitute for professional medical care. Always follow your healthcare professional's instructions. Follow Up Care 08/31/2021 13:22:58 With:Go to emergency room if symptoms worsen Address:Unknown When:2-4 days With:HERI SUÁREZ Address: [address] [place] [address], [place] [address] [phone] When:2-4 days [facility] 08-31-2021 Evaluation + Plan note Diagnostic Tests PendingUrine Culture 08/31/21 [facility] Evaluation + Plan note Future Appointments Appointment Date:10/22/2024 07:45:00 AM Scheduled Provider:KEVIN GUPTA Location:[facility] Appointment Type:[facility] Wellness Annual [facility] Evaluation note Diagnosis Onset Date Depression acute Lab test positive for detect ion of COVID-19 virus acute acute PTSD (post-traumatic stress disorder) acute Rh negative status during acute Supervision of normal acute Chronic migraine chronic COVID-19 vaccine series completed resolved Depression acute 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 Lab test positive for detect ion of COVID-19 virus acute acute PTSD (post-traumatic stress disorder) acute Rh negative status during acute Supervision of normal acute Chronic migraine chronic COVID-19 vaccine series completed resolved Depression acute 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 Lab test positive for detect ion of COVID-19 virus acute acute PTSD (post-traumatic stress disorder) acute Rh negative status during acute Supervision of normal acute Chronic migraine chronic COVID-19 vaccine series completed resolved Depression acute 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 Lab test positive for detect ion of COVID-19 virus acute Marginal placenta acute acute PTSD (post-traumatic stress disorder) acute Rh negative status during acute Supervision of normal acute Chronic migraine chronic Depression acute Lab test positive for detect ion of COVID-19 virus acute Marginal placenta acute acute PTSD (post-traumatic stress disorder) acute Rh negative status during acute Supervision of normal acute Depression acute 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 Lab test positive for detect ion of COVID-19 virus acute Marginal placenta acute acute PTSD (post-traumatic stress disorder) acute Rh negative status during acute Supervision of normal acute Chronic migraine chronic [facility] Work Phone: Evaluation note* Diagnosis Onset Date Resolution Status Depression acute 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 Lab test positive for detection of COVID-19 virus acute acute PTSD (post-traumatic stress disorder) acute Rh negative status during acute Supervision of normal acute Chronic migraine chronic COVID-19 vaccine series completed resolved Depression acute 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 Lab test positive for detection of COVID-19 virus acute acute PTSD (post-traumatic stress disorder) acute Rh negative status during acute Supervision of normal acute Chronic migraine chronic COVID-19 vaccine series completed resolved Depression acute 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 Lab test positive for detection of COVID-19 virus acute Marginal placenta acute acute PTSD (post-traumatic stress disorder) acute Rh negative status during acute Supervision of normal acute Chronic migraine chronic Depression acute Lab test positive for detection of COVID-19 virus acute Marginal placenta acute acute PTSD (post-traumatic stress disorder) acute Rh negative status during acute Supervision of normal acute Depression acute 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 Lab test positive for detection of COVID-19 virus acute Marginal placenta acute acute PTSD (post-traumatic stress disorder) acute Rh negative status during acute Supervision of normal acute Chronic migraine chronic [facility] Work Phone: Evaluation note* Diagnosis Onset Date Resolution Status Depression acute Lab test positive for detection of COVID-19 virus acute acute PTSD (post-traumatic stress disorder) acute Rh negative status during acute Supervision of normal acute Chronic migraine chronic COVID-19 vaccine series completed resolved 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 resolved Depression acute Lab test positive for detection of COVID-19 virus acute acute PTSD (post-traumatic stress disorder) acute Rh negative status during acute Supervision of normal acute Chronic migraine chronic 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 resolved Marginal placenta resolved Depression acute Lab test positive for detection of COVID-19 virus acute acute PTSD (post-traumatic stress disorder) acute Rh negative status during acute Supervision of normal acute Marginal placenta resolved Depression acute Lab test positive for detection of COVID-19 virus acute acute PTSD (post-traumatic stress disorder) acute Rh negative status during acute Supervision of normal acute Chronic migraine chronic 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 resolved Marginal placenta resolved Anemia affecting in third trimester acute Depression acute Gestational diabetes acute Lab test positive for detection of COVID-19 virus acute acute PTSD (post-traumatic stress disorder) acute Rh negative status during acute Supervision of normal acute Chronic migraine chronic 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 resolved Marginal placenta resolved Gestational diabetes acute Anemia affecting in third trimester acute Depression acute Gestational diabetes acute Lab test positive for detection of COVID-19 virus acute acute PTSD (post-traumatic stress disorder) acute Rh negative status during acute Supervision of normal acute Variable heart rate decelerations, antepartum acute Chronic migraine chronic 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 resolved Abnormal ultrasound acute Anemia affecting in third trimester acute Depression acute Gestational diabetes acute Lab test positive for detection of COVID-19 virus acute acute Prematurity of fetus acute PTSD (post-traumatic stress disorder) acute Rh negative status during acute Supervision of normal acute Variable heart rate decelerations, antepartum acute Chronic migraine chronic [facility] Work Phone: Evaluation note* Diagnosis Onset Date Resolution Status Depression acute Lab test positive for detection of COVID-19 virus acute acute PTSD (post-traumatic stress disorder) acute Rh negative status during acute Supervision of normal acute Chronic migraine chronic COVID-19 vaccine series completed resolved 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 resolved Depression acute Lab test positive for detection of COVID-19 virus acute acute PTSD (post-traumatic stress disorder) acute Rh negative status during acute Supervision of normal acute Chronic migraine chronic 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 resolved Marginal placenta resolved Depression acute Lab test positive for detection of COVID-19 virus acute acute PTSD (post-traumatic stress disorder) acute Rh negative status during acute Supervision of normal acute Marginal placenta resolved Depression acute Lab test positive for detection of COVID-19 virus acute acute PTSD (post-traumatic stress disorder) acute Rh negative status during acute Supervision of normal acute Chronic migraine chronic 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 resolved Marginal placenta resolved Anemia affecting in third trimester acute Depression acute Gestational diabetes acute Lab test positive for detection of COVID-19 virus acute acute PTSD (post-traumatic stress disorder) acute Rh negative status during acute Supervision of normal acute Chronic migraine chronic 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 resolved Marginal placenta resolved Gestational diabetes acute Anemia affecting in third trimester acute Depression acute Gestational diabetes acute Lab test positive for detection of COVID-19 virus acute acute PTSD (post-traumatic stress disorder) acute Rh negative status during acute Supervision of normal acute Variable heart rate decelerations, antepartum acute Chronic migraine chronic 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 resolved Abnormal ultrasound acute Anemia affecting in third trimester acute Depression acute Gestational diabetes acute Lab test positive for detection of COVID-19 virus acute acute Prematurity of fetus acute PTSD (post-traumatic stress disorder) acute Rh negative status during acute Supervision of normal acute Variable heart rate decelerations, antepartum acute Chronic migraine chronic Abnormal ultrasound acute Anemia affecting in third trimester acute Depression acute Gestational diabetes acute Lab test positive for detection of COVID-19 virus acute acute Prematurity of fetus acute PTSD (post-traumatic stress disorder) acute Rh negative status during acute Supervision of normal acute Variable heart rate decelerations, antepartum acute Chronic migraine chronic [facility] Work Phone: Evaluation note* Diagnosis Onset Date Resolution Status Depression acute Lab test positive for detection of COVID-19 virus acute acute PTSD (post-traumatic stress disorder) acute Rh negative status during acute Supervision of normal acute Chronic migraine chronic 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 resolved Marginal placenta resolved Depression acute Lab test positive for detection of COVID-19 virus acute acute PTSD (post-traumatic stress disorder) acute Rh negative status during acute Supervision of normal acute Marginal placenta resolved Depression acute Lab test positive for detection of COVID-19 virus acute acute PTSD (post-traumatic stress disorder) acute Rh negative status during acute Supervision of normal acute Chronic migraine chronic 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 resolved Marginal placenta resolved Anemia affecting in third trimester acute Depression acute Gestational diabetes acute Lab test positive for detection of COVID-19 virus acute acute PTSD (post-traumatic stress disorder) acute Rh negative status during acute Supervision of normal acute Chronic migraine chronic 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 resolved Marginal placenta resolved Gestational diabetes acute Anemia affecting in third trimester acute Depression acute Gestational diabetes acute Lab test positive for detection of COVID-19 virus acute acute PTSD (post-traumatic stress disorder) acute Rh negative status during acute Supervision of normal acute Variable heart rate decelerations, antepartum acute Chronic migraine chronic 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 resolved Abnormal ultrasound acute Anemia affecting in third trimester acute Depression acute Gestational diabetes acute Lab test positive for detection of COVID-19 virus acute acute Prematurity of fetus acute PTSD (post-traumatic stress disorder) acute Rh negative status during acute Supervision of normal acute Variable heart rate decelerations, antepartum acute Chronic migraine chronic Abnormal ultrasound acute Anemia affecting in third trimester acute Depression acute Gestational diabetes acute Lab test positive for detection of COVID-19 virus acute acute Prematurity of fetus acute PTSD (post-traumatic stress disorder) acute Rh negative status during acute Supervision of normal acute Variable heart rate decelerations, antepartum acute Chronic migraine chronic Abnormal ultrasound acute Anemia affecting in third trimester acute Depression acute Gestational diabetes acute Lab test positive for detection of COVID-19 virus acute acute Rh negative status during acute Supervision of normal acute Abnormal ultrasound acute Anemia affecting in third trimester acute Depression acute Gestational diabetes acute Lab test positive for detection of COVID-19 virus acute acute Prematurity of fetus acute PTSD (post-traumatic stress disorder) acute Rh negative status during acute Supervision of normal acute Variable heart rate decelerations, antepartum acute Chronic migraine [facility] Work Phone: Evaluation note* Diagnosis Onset Date Resolution Status Depression acute PTSD (post-traumatic stress disorder) acute Rh negative status during acute Chronic migraine chronic 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 resolved Marginal placenta resolved Depression acute PTSD (post-traumatic stress disorder) acute Rh negative status during acute Marginal placenta resolved Depression acute PTSD (post-traumatic stress disorder) acute Rh negative status during acute Chronic migraine chronic 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 resolved Marginal placenta resolved Depression acute Gestational diabetes acute PTSD (post-traumatic stress disorder) acute Rh negative status during acute Chronic migraine chronic 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 resolved Marginal placenta resolved Gestational diabetes acute Depression acute Gestational diabetes acute PTSD (post-traumatic stress disorder) acute Rh negative status during acute Chronic migraine chronic 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 resolved Depression acute Gestational diabetes acute PTSD (post-traumatic stress disorder) acute Rh negative status during acute Chronic migraine chronic Depression acute Gestational diabetes acute PTSD (post-traumatic stress disorder) acute Rh negative status during acute Chronic migraine chronic Depression acute Gestational diabetes acute Rh negative status during acute Depression acute Gestational diabetes acute PTSD (post-traumatic stress disorder) acute Rh negative status during acute Chronic migraine chronic Depression acute Gestational diabetes acute PTSD (post-traumatic stress disorder) acute Rh negative status during acute Chronic migraine chronic Anemia acute Arcuate uterus acute Depression acute Gestational diabetes acute induced hypertension acute PTSD (post-traumatic stress disorder) acute Rh negative status during acute Status post delivery acute Chronic migraine [facility] Work Phone: Evaluation note* Diagnosis Onset Date Resolution Status Depression acute PTSD (post-traumatic stress disorder) acute Rh negative status during acute Lab test positive for detection of COVID-19 virus resolved Marginal placenta resolved Depression acute PTSD (post-traumatic stress disorder) acute Rh negative status during acute Chronic migraine resolved 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 resolved Lab test positive for detection of COVID-19 virus resolved Marginal placenta resolved Depression acute PTSD (post-traumatic stress disorder) acute Rh negative status during acute Anemia affecting in third trimester resolved Chronic migraine resolved 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 resolved Gestational diabetes resolve d Lab test positive for detection of COVID-19 virus resolved Marginal placenta resolved Gestational diabetes resolve d Depression acute PTSD (post-traumatic stress disorder) acute Rh negative status during acute Anemia affecting in third trimester resolved Chronic migraine resolved 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 resolved Gestational diabetes resolve d Lab test positive for detection of COVID-19 virus resolved Variable heart rate decelerations, antepartum resolved Depression acute PTSD (post-traumatic stress disorder) acute Rh negative status during acute Abnormal ultrasound resolved Anemia affecting in third trimester resolved Chronic migraine resolved Gestational diabetes resolve d Lab test positive for detection of COVID-19 virus resolved Prematurity of fetus resolve d Variable heart rate decelerations, antepartum resolved Depression acute PTSD (post-traumatic stress disorder) acute Rh negative status during acute Abnormal ultrasound resolved Anemia affecting in third trimester resolved Chronic migraine resolved Gestational diabetes resolve d Lab test positive for detection of COVID-19 virus resolved Prematurity of fetus resolve d Variable heart rate decelerations, antepartum resolved Depression acute Rh negative status during acute Abnormal ultrasound resolved Anemia affecting in third trimester resolved Gestational diabetes resolve d Lab test positive for detection of COVID-19 virus resolved Depression acute PTSD (post-traumatic stress disorder) acute Rh negative status during acute Abnormal ultrasound resolved Anemia affecting in third trimester resolved Chronic migraine resolved Gestational diabetes resolve d Lab test positive for detection of COVID-19 virus resolved Prematurity of fetus resolve d Variable heart rate decelerations, antepartum resolved Depression acute PTSD (post-traumatic stress disorder) acute Rh negative status during acute Abnormal ultrasound resolved Anemia affecting in third trimester resolved Chronic migraine resolved Gestational diabetes resolve d Lab test positive for detection of COVID-19 virus resolved Prematurity of fetus resolve d Variable heart rate decelerations, antepartum resolved Anemia acute Arcuate uterus acute Depression acute induced hypertension acute PTSD (post-traumatic stress disorder) acute Rh negative status during acute Abnormal ultrasound resolved Anemia affecting in third trimester resolved Chronic migraine resolved heart rate deceleratio ns affecting management of mother resolved Gestational diabetes resolve d H/O biophysical profile resolved Lab test positive for detection of COVID-19 virus resolved Prematurity of fetus resolve d Variable heart rate decelerations, antepartum resolved Care and examination of lactating mother noneactive Anemia acute depression acute induced hypertension acute Postop check noneactive [facility] Work Phone: Evaluation note* Diagnosis Onset Date Resolution Status 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 [facility] Work Phone: Hospital course Narrative No data available for this section [facility] Hospital Discharge instructions No data available for this section [facility] Progress note No data available for this section [facility] Summary Purpose Family History No Family History Records Found Relationship Condition Age at Onset Recorded Date/T neelima father Cerebrovascular accident (CVA) Unknown mother Hypertension Unknown Cyst of ovary Unknown Irritable bowel syndrome Unknown Migraine headache Unknown grandmother Malignant neoplasm Unknown Advance Directives No Advanced Directives Records Found Advance Directive Response Recorded Date/ Time Living Will No March 05, 2022 10:28pm 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 March 05 10:28pm Chief Complaint and Reason for Visit Chief Complaint extreme N/V HYDRATION 14 WK OB 18WK OB 22WK OB 26 WK OB 28wk ob / glucose / rhogam Reason for Visit Depression Lab test positive for detection of COVID-19 virus PTSD (post-traumatic stress disorder) Rh negative status during Supervision of normal Chronic migraine COVID-19 vaccine series completed Depression 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 Lab test positive for detection of COVID-19 virus PTSD (post-traumatic stress disorder) Rh negative status during Supervision of normal Chronic migraine COVID-19 vaccine series completed Depression 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 Lab test positive for detection of COVID-19 virus PTSD (post-traumatic stress disorder) Rh negative status during Supervision of normal Chronic migraine COVID-19 vaccine series completed Depression 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 Lab test positive for detection of COVID-19 virus Marginal placenta PTSD (post-traumatic stress disorder) Rh negative status during Supervision of normal Chronic migraine Depression Lab test positive for detection of COVID-19 virus Marginal placenta PTSD (post-traumatic stress disorder) Rh negative status during Supervision of normal Depression 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 Lab test positive for detection of COVID-19 virus Marginal placenta PTSD (post-traumatic stress disorder) Rh negative status during Supervision of normal Chronic migraine Chief Complaint 14 WK OB 18WK OB 22WK OB 26 WK OB 28wk ob / glucose / rhogam Encounter for screening for diabetes mellitus GESTATIONAL DIABETES Reason for Visit Depression 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 Lab test positive for detection of COVID-19 virus PTSD (post-traumatic stress disorder) Rh negative status during Supervision of normal Chronic migraine COVID-19 vaccine series completed Depression 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 Lab test positive for detection of COVID-19 virus PTSD (post-traumatic stress disorder) Rh negative status during Supervision of normal Chronic migraine COVID-19 vaccine series completed Depression 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 Lab test positive for detection of COVID-19 virus Marginal placenta PTSD (post-traumatic stress disorder) Rh negative status during Supervision of normal Chronic migraine Depression Lab test positive for detection of COVID-19 virus Marginal placenta PTSD (post-traumatic stress disorder) Rh negative status during Supervision of normal Depression 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 Lab test positive for detection of COVID-19 virus Marginal placenta PTSD (post-traumatic stress disorder) Rh negative status during Supervision of normal Chronic migraine Chief Complaint 18WK OB 22WK OB 26 WK OB 28wk ob / glucose / rhogam Encounter for screening for diabetes mellitus 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, 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, 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, 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 GESTATIONAL DIABETES decreased movement EXTENDED MONTORING EXTENDED MONTORING EXTENDED MONTORING Reason for Visit Depression Lab test positive for detection of COVID-19 virus PTSD (post-traumatic stress disorder) Rh negative status during Supervision of normal Chronic migraine COVID-19 vaccine series completed 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 Depression Lab test positive for detection of COVID-19 virus PTSD (post-traumatic stress disorder) Rh negative status during Supervision of normal Chronic migraine 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 Marginal placenta Depression Lab test positive for detection of COVID-19 virus PTSD (post-traumatic stress disorder) Rh negative status during Supervision of normal Marginal placenta Depression Lab test positive for detection of COVID-19 virus PTSD (post-traumatic stress disorder) Rh negative status during Supervision of normal Chronic migraine 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 Marginal placenta Anemia affecting in third trimester Depression Gestational diabetes Lab test positive for detection of COVID-19 virus PTSD (post-traumatic stress disorder) Rh negative status during Supervision of normal Chronic migraine 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 Marginal placenta Gestational diabetes Anemia affecting in third trimester Depression Gestational diabetes Lab test positive for detection of COVID-19 virus PTSD (post-traumatic stress disorder) Rh negative status during Supervision of normal Variable heart rate decelerations, antepartum Chronic migraine 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 Abnormal ultrasound Anemia affecting in third trimester Depression Gestational diabetes Lab test positive for detection of COVID-19 virus Prematurity of fetus PTSD (post-traumatic stress disorder) Rh negative status during Supervision of normal Variable heart rate decelerations, antepartum Chronic migraine Chief Complaint 18WK OB 22WK OB 26 WK OB 28wk ob / glucose / rhogam Encounter for screening for diabetes mellitus 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, 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, 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, 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 decreased movement EXTENDED MONTORING EXTENDED MONTORING EXTENDED MONTORING GESTATIONAL DIABETES 32 WK OB 32 WEEK GROWTH Reason for Visit Depression Lab test positive for detection of COVID-19 virus PTSD (post-traumatic stress disorder) Rh negative status during Supervision of normal Chronic migraine COVID-19 vaccine series completed 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 Depression Lab test positive for detection of COVID-19 virus PTSD (post-traumatic stress disorder) Rh negative status during Supervision of normal Chronic migraine 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 Marginal placenta Depression Lab test positive for detection of COVID-19 virus PTSD (post-traumatic stress disorder) Rh negative status during Supervision of normal Marginal placenta Depression Lab test positive for detection of COVID-19 virus PTSD (post-traumatic stress disorder) Rh negative status during Supervision of normal Chronic migraine 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 Marginal placenta Anemia affecting in third trimester Depression Gestational diabetes Lab test positive for detection of COVID-19 virus PTSD (post-traumatic stress disorder) Rh negative status during Supervision of normal Chronic migraine 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 Marginal placenta Gestational diabetes Anemia affecting in third trimester Depression Gestational diabetes Lab test positive for detection of COVID-19 virus PTSD (post-traumatic stress disorder) Rh negative status during Supervision of normal Variable heart rate decelerations, antepartum Chronic migraine 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 Abnormal ultrasound Anemia affecting in third trimester Depression Gestational diabetes Lab test positive for detection of COVID-19 virus Prematurity of fetus PTSD (post-traumatic stress disorder) Rh negative status during Supervision of normal Variable heart rate decelerations, antepartum Chronic migraine Abnormal ultrasound Anemia affecting in third trimester Depression Gestational diabetes Lab test positive for detection of COVID-19 virus Prematurity of fetus PTSD (post-traumatic stress disorder) Rh negative status during Supervision of normal Variable heart rate decelerations, antepartum Chronic migraine Chief Complaint 18WK OB 22WK OB 26 WK OB 28wk ob / glucose / rhogam Encounter for screening for diabetes mellitus 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, 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, 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, 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 decreased movement EXTENDED MONTORING EXTENDED MONTORING EXTENDED MONTORING GESTATIONAL DIABETES 32 WK OB 32 WEEK GROWTH decreased movement Reason for Visit Depression Lab test positive for detection of COVID-19 virus PTSD (post-traumatic stress disorder) Rh negative status during Supervision of normal Chronic migraine COVID-19 vaccine series completed 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 Depression Lab test positive for detection of COVID-19 virus PTSD (post-traumatic stress disorder) Rh negative status during Supervision of normal Chronic migraine 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 Marginal placenta Depression Lab test positive for detection of COVID-19 virus PTSD (post-traumatic stress disorder) Rh negative status during Supervision of normal Marginal placenta Depression Lab test positive for detection of COVID-19 virus PTSD (post-traumatic stress disorder) Rh negative status during Supervision of normal Chronic migraine 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 Marginal placenta Anemia affecting in third trimester Depression Gestational diabetes Lab test positive for detection of COVID-19 virus PTSD (post-traumatic stress disorder) Rh negative status during Supervision of normal Chronic migraine 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 Marginal placenta Gestational diabetes Anemia affecting in third trimester Depression Gestational diabetes Lab test positive for detection of COVID-19 virus PTSD (post-traumatic stress disorder) Rh negative status during Supervision of normal Variable heart rate decelerations, antepartum Chronic migraine 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 Abnormal ultrasound Anemia affecting in third trimester Depression Gestational diabetes Lab test positive for detection of COVID-19 virus Prematurity of fetus PTSD (post-traumatic stress disorder) Rh negative status during Supervision of normal Variable heart rate decelerations, antepartum Chronic migraine Abnormal ultrasound Anemia affecting in third trimester Depression Gestational diabetes Lab test positive for detection of COVID-19 virus Prematurity of fetus PTSD (post-traumatic stress disorder) Rh negative status during Supervision of normal Variable heart rate decelerations, antepartum Chronic migraine Chief Complaint 22WK OB 26 WK OB 28wk ob / glucose / rhogam Encounter for screening for diabetes mellitus 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, 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, 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, 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 decreased movement EXTENDED MONTORING EXTENDED MONTORING EXTENDED MONTORING GESTATIONAL DIABETES 32 WK OB 32 WEEK GROWTH decreased movement 34 WK OB 36 WK OB 36 WEEK GROWTH Reason for Visit Depression Lab test positive for detection of COVID-19 virus PTSD (post-traumatic stress disorder) Rh negative status during Supervision of normal Chronic migraine 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 Marginal placenta Depression Lab test positive for detection of COVID-19 virus PTSD (post-traumatic stress disorder) Rh negative status during Supervision of normal Marginal placenta Depression Lab test positive for detection of COVID-19 virus PTSD (post-traumatic stress disorder) Rh negative status during Supervision of normal Chronic migraine 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 Marginal placenta Anemia affecting in third trimester Depression Gestational diabetes Lab test positive for detection of COVID-19 virus PTSD (post-traumatic stress disorder) Rh negative status during Supervision of normal Chronic migraine 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 Marginal placenta Gestational diabetes Anemia affecting in third trimester Depression Gestational diabetes Lab test positive for detection of COVID-19 virus PTSD (post-traumatic stress disorder) Rh negative status during Supervision of normal Variable heart rate decelerations, antepartum Chronic migraine 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 Abnormal ultrasound Anemia affecting in third trimester Depression Gestational diabetes Lab test positive for detection of COVID-19 virus Prematurity of fetus PTSD (post-traumatic stress disorder) Rh negative status during Supervision of normal Variable heart rate decelerations, antepartum Chronic migraine Abnormal ultrasound Anemia affecting in third trimester Depression Gestational diabetes Lab test positive for detection of COVID-19 virus Prematurity of fetus PTSD (post-traumatic stress disorder) Rh negative status during Supervision of normal Variable heart rate decelerations, antepartum Chronic migraine Abnormal ultrasound Anemia affecting in third trimester Depression Gestational diabetes Lab test positive for detection of COVID-19 virus Rh negative status during Supervision of normal Abnormal ultrasound Anemia affecting in third trimester Depression Gestational diabetes Lab test positive for detection of COVID-19 virus Prematurity of fetus PTSD (post-traumatic stress disorder) Rh negative status during Supervision of normal Variable heart rate decelerations, antepartum Chronic migraine Chief Complaint 22WK OB 26 WK OB 28wk ob / glucose / rhogam Encounter for screening for diabetes mellitus 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, 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, 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, 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 decreased movement EXTENDED MONTORING EXTENDED MONTORING EXTENDED MONTORING GESTATIONAL DIABETES 32 WK OB 32 WEEK GROWTH decreased movement 34 WK OB 36 WK OB 36 WEEK GROWTH 37 WK OB 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 Reason for Visit Depression PTSD (post-traumatic stress disorder) Rh negative status during Chronic migraine 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 Marginal placenta Depression PTSD (post-traumatic stress disorder) Rh negative status during Marginal placenta Depression PTSD (post-traumatic stress disorder) Rh negative status during Chronic migraine 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 Marginal placenta Depression Gestational diabetes PTSD (post-traumatic stress disorder) Rh negative status during Chronic migraine 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 Marginal placenta Gestational diabetes Depression Gestational diabetes PTSD (post-traumatic stress disorder) Rh negative status during Chronic migraine 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 Depression Gestational diabetes PTSD (post-traumatic stress disorder) Rh negative status during Chronic migraine Depression Gestational diabetes PTSD (post-traumatic stress disorder) Rh negative status during Chronic migraine Depression Gestational diabetes Rh negative status during Depression Gestational diabetes PTSD (post-traumatic stress disorder) Rh negative status during Chronic migraine Depression Gestational diabetes PTSD (post-traumatic stress disorder) Rh negative status during Chronic migraine Anemia Arcuate uterus Depression Gestational diabetes induced hypertension PTSD (post-traumatic stress disorder) Rh negative status during Status post delivery Chronic migraine Chief Complaint 26 WK OB 28wk ob / glucose / rhogam Encounter for screening for diabetes mellitus 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, 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, 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, 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 decreased movement EXTENDED MONTORING EXTENDED MONTORING EXTENDED MONTORING GESTATIONAL DIABETES 32 WK OB 32 WEEK GROWTH decreased movement 34 WK OB 36 WK OB 36 WEEK GROWTH 37 WK OB 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 baby tongue tie just clipped today INCISION CHECK Reason for Visit Depression PTSD (post-traumatic stress disorder) Rh negative status during Lab test positive for detection of COVID-19 virus Marginal placenta Depression PTSD (post-traumatic stress disorder) Rh negative status during Chronic migraine 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 Lab test positive for detection of COVID-19 virus Marginal placenta Depression PTSD (post-traumatic stress disorder) Rh negative status during Anemia affecting in third trimester Chronic migraine 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 Gestational diabetes Lab test positive for detection of COVID-19 virus Marginal placenta Gestational diabetes Depression PTSD (post-traumatic stress disorder) Rh negative status during Anemia affecting in third trimester Chronic migraine 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 Gestational diabetes Lab test positive for detection of COVID-19 virus Variable heart rate decelerations, antepartum Depression PTSD (post-traumatic stress disorder) Rh negative status during Abnormal ultrasound Anemia affecting in third trimester Chronic migraine Gestational diabetes Lab test positive for detection of COVID-19 virus Prematurity of fetus Variable heart rate decelerations, antepartum Depression PTSD (post-traumatic stress disorder) Rh negative status during Abnormal ultrasound Anemia affecting in third trimester Chronic migraine Gestational diabetes Lab test positive for detection of COVID-19 virus Prematurity of fetus Variable heart rate decelerations, antepartum Depression Rh negative status during Abnormal ultrasound Anemia affecting in third trimester Gestational diabetes Lab test positive for detection of COVID-19 virus Depression PTSD (post-traumatic stress disorder) Rh negative status during Abnormal ultrasound Anemia affecting in third trimester Chronic migraine Gestational diabetes Lab test positive for detection of COVID-19 virus Prematurity of fetus Variable heart rate decelerations, antepartum Depression PTSD (post-traumatic stress disorder) Rh negative status during Abnormal ultrasound Anemia affecting in third trimester Chronic migraine Gestational diabetes Lab test positive for detection of COVID-19 virus Prematurity of fetus Variable heart rate decelerations, antepartum Anemia Arcuate uterus Depression induced hypertension PTSD (post-traumatic stress disorder) Rh negative status during Abnormal ultrasound Anemia affecting in third trimester Chronic migraine heart rate decelerations affecting management of mother Gestational diabetes H/O biophysical profile Lab test positive for detection of COVID-19 virus Prematurity of fetus Variable heart rate decelerations, antepartum Care and examination of lactating mother Anemia depression induced hypertension Postop check Chief Complaint Fertility consult Reason for Visit 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 Additional Source Comments INFORMATION SOURCE (unrecogn ized section and content) DATE CREATED AUTHOR 02/28/2018 [facility] Chloride DATE CREATED AUTHOR AUTHOR'S ORGANIZ ATION 11/03/2020 [facility] DATE CREATED AUTHOR AUTHOR'S ORGANIZ ATION 03/26/2021 [facility] DATE CREATED AUTHOR AUTHOR'S ORGANIZ ATION 07/01/2021 [facility] DATE CREATED AUTHOR AUTHOR'S ORGANIZ ATION 02/04/2024 [facility] DATE CREATED AUTHOR AUTHOR'S ORGANIZ ATION [facility]/02/2024 [facility] DATE CREATED AUTHOR AUTHOR'S ORGANIZ ATION 07/03/2024 [facility] DATE CREATED AUTHOR AUTHOR'S ORGANIZ ATION 05/24/2025 [facility] Goals (unrecognized section and content) Goals may be documented in a n alternate section Patient Care team informatio n (unrecognized section and content) Team Status: Active Member Role Status Dates No Primary Care Physician Primary Care Provider Active Team Status: Inactive Member Role Status Dates No Primary Care Physician Primary Care Provider, Refer ring Provider Active Dr. Amie Martin , DO Attending Provider Activ e Team Status: Inactive Member Role Status Dates No Primary Care Physician Primary Care Provider Active Dr. Amie Martin , DO Attending Provider, Refe rring Provider Active FOR RECORDS PERTAINING TO PATIENTS WHO ARE OR HAVE BEEN ENROLLED IN A CHEMICAL DEPENDENCY/SUBSTANCEABUSE PROGRAM, SOME INFORMATION MAY BE OMITTED. This clinical summary was aggregated from multiple sources. Caution should be exercised in using it in the provision of clinical care. This summary normalizes information from multiple sources, and as a consequence, information in this document may materially change the coding, format and clinical context of patient data. In addition, data may be omitted in some cases. CLINICAL DECISIONS SHOULD BE BASED ON THE PRIMARY CLINICAL RECORDS. [facility] provides no warranty or guarantee of the accuracy or completeness of information in this document.
== END | disposition home or self-care (01) ==
LOC: LABSPEC 16:07
PROVIDERS: Visit Provider Obstetrics & Gynecology
DX: Z12.4 Encounter for screening for malignant neoplasm of cervix (principal)
CPT/HCPCS: 88175; G0145